=== PATIENT | male | born 1950 | race Two or more races ===

== ENCOUNTER 2021-01-12 22:37 | Inpatient (IN) | payer OTHER ==
[~2021-01-12] VITALS: Ht 170.2 cm; Wt 110.0 kg
[2021-01-12] MEDS ORDERED: ACETAMINOPHEN 325 MG TAB PO ONE (23:45)
[2021-01-13] VITALS (8 sets, daily range): BP systolic 122–165; BP diastolic 63–92
[2021-01-13] LABS: Eosinophils # (auto) 0 10 ^3/uL (0-0.8); Hemoglobin 11.7 g/dL (13.5-17.5); Nucleated Red Blood Cells % 0.1 %
[2021-01-13 00:02] LABS: Basophils # (auto) 0 10 ^3/uL (0-0.2); Basophils % (auto) 0.6 % (0.0-2.0); Hematocrit 35.2 % (41.0-53.0); Lymphocytes # (auto) 0.2 10 ^3/uL (0.4-5.4); Lymphocytes % (auto) 3.6 % (10.0-50.0); Mean Corpuscular Hemoglobin 26.2 pg (28.0-32.0); Mean Corpuscular Hgb Conc. 33.1 g/dL (32.0-36.0); Mean Corpuscular Volume 79.1 fL (80.0-100.0); Monocytes # (auto) 0.3 10 ^3/uL (0-1.3); Monocytes % (auto) 4.3 % (0.0-12.0); Neutrophils # (auto) 5.9 10 ^3/uL (1.6-8.6); Neutrophils % (auto) 91.5 % (37.0-80.0); Red Blood Cells 4.45 10^6/uL (4.5-5.90); White Blood Cell 6.4 10^3/uL (4.4-10.8)
[2021-01-13 00:14] LABS: INR 1.13 (0.9-1.15); Partial Thromboplastin Time 31.1 sec (23.0-31.2)
[2021-01-13] MEDS ORDERED: cefTRIAXone 1GM/50ML D5W 50 ML IV ONE (00:15)
[2021-01-13] MEDS ORDERED: SODIUM CHLORIDE 0.9% 2,200 ML IV ONE (00:15)
[2021-01-13 00:16] LABS: Albumin 2.9 g/dL (3.4-5.0); Calcium 8.4 mg/dL (8.5-10.1); Magnesium 1.9 mg/dL (1.6-2.6)
[2021-01-13 00:20] LABS: Bilirubin, Total 0.6 mg/dL (0.2-1.0); Total Protein 7.2 g/dL (6.4-8.2)
[2021-01-13] MEDS ORDERED: DexAMETHasone SOD PHOS 10MG/1ML VIAL INJ PO ONE (01:30)
[2021-01-13] MEDS ORDERED: IOHEXOL 350 MG/ML 100ML IJ ONE (03:14)
[2021-01-13 04:35] LABS: Urine Bacteria FEW /hpf (None Seen); Urine Blood Negative /uL (Negative); Urine Specific Gravity 1.021 (1.001-1.035); Urine WBC 2 /hpf (0 - 3)
[2021-01-13] MEDS ORDERED: ONDANSETRON HCL 4 MG/2 ML VIAL IV PRN (05:15)
[2021-01-13] MEDS ORDERED: MORPHINE SULF INJ 2 MG/ML SYRINGE 1ML IV PRN (05:15)
[2021-01-13] MEDS ORDERED: REMDESIVIR PER PHARMACY 0 ML IV SCH (05:15)
[2021-01-13] MEDS ORDERED: NITROGLYCERIN 0.4 MG SL TAB SL PRN (05:15)
[2021-01-13] MEDS: IPRATROPIUM BROMIDE HFA AER IN SCH ×4 (06:00→22:18)
[2021-01-13] MEDS ORDERED: REMDESIVIR 200 MG in NS 210ml LOADING DOSE ADULT IV ONE (08:45)
[2021-01-13] MEDS: BUDESONIDE (INHALATION) 180 MCG IH IN SCH ×2 (10:00→19:35)
[2021-01-13] MEDS ORDERED: CHOLECALCIFEROL (VITD3) 2,000 UNIT CAP/TAB PO SCH (10:00)
[2021-01-13] MEDS: AZITHROMYCIN 500MG/ 250ML 250 ML IV SCH (11:31)
[2021-01-13] MEDS: DexAMETHasone SOD PHOS 10MG/1ML VIAL INJ IV SCH (11:32)
[2021-01-13] MEDS: ASCORBIC ACID 1,000 MG TAB PO SCH (11:33)
[2021-01-13] MEDS: ZINC SULFATE 220mg CAP or TAB PO SCH (11:33)
[2021-01-13] MEDS: FAMOTIDINE 20 MG TAB PO SCH ×2 (11:33→20:12)
[2021-01-13] MEDS: ENALAPRIL MALEATE 10 MG TAB PO SCH (11:33)
[2021-01-13] MEDS: ENOXAPARIN SOD 40 MG/0.4 ML SYRINGE SC SCH ×2 (11:34→20:12)
[2021-01-13] MEDS: METOPROLOL TARTRATE 25 MG TAB PO SCH ×2 (11:34→20:12)
[2021-01-13] MEDS: ALBUTEROL SULF HFA 90MCG INH 200DOSE IN PRN (13:28)
[2021-01-13] MEDS ORDERED: LORazepam 2MG/ML-1ML VIAL IM ONE (13:45)
[2021-01-13] MEDS ORDERED: FUROSEMIDE 20 MG/2 ML VIAL IV ONE (19:15)
[2021-01-13] MEDS: cefTRIAXone 1GM/50ML D5W 50 ML IV SCH (20:12)
[2021-01-13] MEDS: ACETAMINOPHEN 500 MG TAB PO PRN (20:13)
[2021-01-13] MEDS: TEMAZEPAM 15 MG CAP PO PRN (20:13)
[2021-01-14] VITALS (13 sets, daily range): BP systolic 102–173; BP diastolic 60–96
[2021-01-14] MEDS: cloNIDine HCL 0.1 MG TAB PO PRN (05:27)
[2021-01-14 05:29] LABS: Basophils # (auto) 0 10 ^3/uL (0-0.2); Basophils % (auto) 0.3 % (0.0-2.0); Eosinophils # (auto) 0 10 ^3/uL (0-0.8); Hematocrit 36.2 % (41.0-53.0); Hemoglobin 12.1 g/dL (13.5-17.5); Lymphocytes # (auto) 0.6 10 ^3/uL (0.4-5.4); Lymphocytes % (auto) 6.2 % (10.0-50.0); Mean Corpuscular Hemoglobin 26.6 pg (28.0-32.0); Mean Corpuscular Hgb Conc. 33.4 g/dL (32.0-36.0); Mean Corpuscular Volume 79.4 fL (80.0-100.0); Monocytes # (auto) 0.4 10 ^3/uL (0-1.3); Monocytes % (auto) 4.2 % (0.0-12.0); Neutrophils # (auto) 8.1 10 ^3/uL (1.6-8.6); Neutrophils % (auto) 89.3 % (37.0-80.0); Red Blood Cells 4.56 10^6/uL (4.5-5.90); Red Cell Distribution Width 16.9 % (11.8-14.3); White Blood Cell 9.1 10^3/uL (4.4-10.8)
[2021-01-14 05:48] LABS: Albumin 2.5 g/dL (3.4-5.0); Calcium 8.9 mg/dL (8.5-10.1); Potassium 4.3 mmol/L (3.5-5.1)
[2021-01-14 05:54] LABS: BUN/Creatinine Ratio 33.8; Bilirubin, Total 0.4 mg/dL (0.2-1.0); Total Protein 6.9 g/dL (6.4-8.2)
[2021-01-14] MEDS: ALBUTEROL SULF HFA 90MCG INH 200DOSE IN PRN ×3 (06:55→22:39)
[2021-01-14] MEDS: IPRATROPIUM BROMIDE HFA AER IN SCH ×4 (06:55→22:39)
[2021-01-14] MEDS ORDERED: DEXTROSE (50%) 50ML SYRG IV PRN (08:30)
[2021-01-14] MEDS: FUROSEMIDE 20 MG/2 ML VIAL IV SCH (10:00)
[2021-01-14] MEDS: AZITHROMYCIN 500MG/ 250ML 250 ML IV SCH (10:00)
[2021-01-14] MEDS: DexAMETHasone SOD PHOS 10MG/1ML VIAL INJ IV SCH (10:00)
[2021-01-14] MEDS: ERGOCALCIFEROL 50,000 UNIT(1.25MG) CAP PO SCH (10:00)
[2021-01-14] MEDS: FAMOTIDINE 20 MG TAB PO SCH ×2 (10:01→23:30)
[2021-01-14] MEDS: METOPROLOL TARTRATE 25 MG TAB PO SCH ×2 (10:01→23:30)
[2021-01-14] MEDS: ENALAPRIL MALEATE 10 MG TAB PO SCH (10:01)
[2021-01-14] MEDS: ZINC SULFATE 220mg CAP or TAB PO SCH (10:01)
[2021-01-14] MEDS: ASCORBIC ACID 1,000 MG TAB PO SCH (10:01)
[2021-01-14] MEDS: BUDESONIDE (INHALATION) 180 MCG IH IN SCH ×2 (10:02→22:38)
[2021-01-14] MEDS: ENOXAPARIN SOD 40 MG/0.4 ML SYRINGE SC SCH ×2 (10:02→23:31)
[2021-01-14] MEDS: ACCU-CHEK COMFORT CURVE STRIP VI SCH ×3 (11:53→22:00)
[2021-01-14] MEDS: InsuLIN REG 1unit/0.01ml Soln (100units/ml) SC SCH ×3 (11:58→22:00)
[2021-01-14] MEDS: REMDESIVIR 100mg 100 MG in SODIUM CHL 0.9% 230 ML IV SCH (15:54)
[2021-01-14] MEDS ORDERED: LORazepam 2MG/ML-1ML VIAL IV ONE (16:15)
[2021-01-14] MEDS ORDERED: HALOPERIDOL LACTATE 5 MG/ML INJ VIAL ONE (18:39)
[2021-01-14] MEDS: cefTRIAXone 1GM/50ML D5W 50 ML IV SCH (23:30)
[2021-01-14] MEDS: TEMAZEPAM 15 MG CAP PO PRN (23:31)
[2021-01-15] VITALS (61 sets, daily range): BP systolic 62–173; BP diastolic 37–95
[2021-01-15] MEDS ORDERED: LORazepam 2MG/ML-1ML VIAL ONE ×2 (01:28→06:40)
[2021-01-15] MEDS ORDERED: LORazepam 2MG/ML-1ML VIAL IV ONE ×2 (01:30→06:45)
[2021-01-15] MEDS ORDERED: HALOPERIDOL LACTATE 5 MG/ML INJ VIAL ONE (03:09)
[2021-01-15] MEDS ORDERED: HALOPERIDOL LACTATE 5 MG/ML INJ VIAL IV ONE (03:15)
[2021-01-15 05:36] LABS: Albumin 2.4 g/dL (3.4-5.0); Calcium 8.5 mg/dL (8.5-10.1); Potassium 3.9 mmol/L (3.5-5.1)
[2021-01-15 05:41] LABS: BUN/Creatinine Ratio 42.4; Bilirubin, Total 0.4 mg/dL (0.2-1.0); Total Protein 6.7 g/dL (6.4-8.2)
[2021-01-15] MEDS: IPRATROPIUM BROMIDE HFA AER IN SCH (06:00)
[2021-01-15] MEDS: ACCU-CHEK COMFORT CURVE STRIP VI SCH ×3 (06:07→18:12)
[2021-01-15] MEDS: InsuLIN REG 1unit/0.01ml Soln (100units/ml) SC SCH ×3 (06:07→18:12)
[2021-01-15 07:50] LABS: Basophils # (auto) 0 10 ^3/uL (0-0.2); Eosinophils # (auto) 0 10 ^3/uL (0-0.8); Lymphocytes # (auto) 0.5 10 ^3/uL (0.4-5.4); Mean Corpuscular Hgb Conc. 34.1 g/dL (32.0-36.0); Monocytes # (auto) 0.5 10 ^3/uL (0-1.3)
[2021-01-15 07:54] LABS: Basophils % (auto) 0.3 % (0.0-2.0); Hematocrit 36.8 % (41.0-53.0); Hemoglobin 12.6 g/dL (13.5-17.5); Lymphocytes % (auto) 4.9 % (10.0-50.0); Mean Corpuscular Hemoglobin 26.7 pg (28.0-32.0); Mean Corpuscular Volume 78.3 fL (80.0-100.0); Monocytes % (auto) 5.1 % (0.0-12.0); Neutrophils # (auto) 8.6 10 ^3/uL (1.6-8.6); Neutrophils % (auto) 89.7 % (37.0-80.0); Nucleated Red Blood Cells % 0.1 %; Red Blood Cells 4.71 10^6/uL (4.5-5.90); Red Cell Distribution Width 17.1 % (11.8-14.3); White Blood Cell 9.6 10^3/uL (4.4-10.8)
[2021-01-15] MEDS: FAMOTIDINE 20 MG TAB PO SCH ×2 (10:00→21:51)
[2021-01-15] MEDS: ENALAPRIL MALEATE 10 MG TAB PO SCH (10:00)
[2021-01-15] MEDS ORDERED: ETOMIDATE (2MG/ML) 20ML VIAL IV ONE ×2 (10:00→10:48)
[2021-01-15] MEDS ORDERED: SUCCINYLCHOLINE CHLORIDE 20 MG/ML 10ML VIAL IV ONE ×2 (10:00→10:49)
[2021-01-15] MEDS ORDERED: ROCURONIUM 10MG/ML 10ML VIAL IV ONE (10:00)
[2021-01-15] MEDS: METOPROLOL TARTRATE 25 MG TAB PO SCH ×2 (10:00→21:50)
[2021-01-15] MEDS: ASCORBIC ACID 1,000 MG TAB PO SCH (10:00)
[2021-01-15] MEDS: ZINC SULFATE 220mg CAP or TAB PO SCH (10:00)
[2021-01-15] MEDS ORDERED: MIDAZOLAM HCL 5 MG/ML-1ML VIAL IV ONE (10:30)
[2021-01-15] MEDS: PROPOFOL 100 ML IV SCH ×2 (11:10→16:53)
[2021-01-15] MEDS: MIDAZOLAM DRIP 50 mg/50mL 50 ML IV SCH ×2 (11:20→15:07)
[2021-01-15] MEDS: fentaNYL Drip 2500mCg/250mlNS 250 ML IV SCH ×2 (11:30→21:47)
[2021-01-15] MEDS: NOREPINEPHRINE 8 MG/250ML KIT 250 ML IV SCH ×2 (11:30→19:05)
[2021-01-15] MEDS: PHENYLEPHRINE IV 250 ML IV SCH ×2 (11:45→18:20)
[2021-01-15] MEDS: IPRATROPIUM BROM 0.5 MG/2.5ML INH SOL NEB SCH ×2 (14:02→22:29)
[2021-01-15] MEDS: ALBUTEROL SULF 2.5 MG/0.5ML(0.5%) NEB SOLN NEB SCH ×2 (14:02→22:29)
[2021-01-15] MEDS: DexAMETHasone SOD PHOS 10MG/1ML VIAL INJ IV SCH (15:06)
[2021-01-15] MEDS: FUROSEMIDE 20 MG/2 ML VIAL IV SCH (15:07)
[2021-01-15] MEDS: AZITHROMYCIN 500MG/ 250ML 250 ML IV SCH (15:14)
[2021-01-15] MEDS: ENOXAPARIN SOD 40 MG/0.4 ML SYRINGE SC SCH (15:15)
[2021-01-15] MEDS: REMDESIVIR 100mg 100 MG in SODIUM CHL 0.9% 230 ML IV SCH (16:10)
[2021-01-15] MEDS: cefTRIAXone 1GM/50ML D5W 50 ML IV SCH (22:06)
[2021-01-15] MEDS: BUDESONIDE (INHALATION) 0.5 MG/2 ML NEB NEB SCH (22:29)
[2021-01-16] VITALS (106 sets, daily range): BP systolic 91–136; BP diastolic 42–64
[2021-01-16] MEDS: ENOXAPARIN SOD 40 MG/0.4 ML SYRINGE SC SCH ×3 (00:22→22:47)
[2021-01-16] MEDS: InsuLIN REG 1unit/0.01ml Soln (100units/ml) SC SCH ×5 (00:22→22:00)
[2021-01-16] MEDS: ACCU-CHEK COMFORT CURVE STRIP VI SCH ×5 (00:22→22:00)
[2021-01-16] MEDS: MIDAZOLAM DRIP 50 mg/50mL 50 ML IV SCH ×5 (00:24→22:48)
[2021-01-16] MEDS: PHENYLEPHRINE IV 250 ML IV SCH ×3 (02:40→19:20)
[2021-01-16 07:15] LABS: Albumin 2.1 g/dL (3.4-5.0); Calcium 8.4 mg/dL (8.5-10.1)
[2021-01-16 07:16] LABS: BUN/Creatinine Ratio 33.3
[2021-01-16 07:19] LABS: Bilirubin, Total 0.3 mg/dL (0.2-1.0); Total Protein 5.9 g/dL (6.4-8.2)
[2021-01-16] MEDS: BUDESONIDE (INHALATION) 0.5 MG/2 ML NEB NEB SCH ×2 (07:30→18:34)
[2021-01-16] MEDS: ALBUTEROL SULF 2.5 MG/0.5ML(0.5%) NEB SOLN NEB SCH ×3 (07:30→18:34)
[2021-01-16] MEDS: IPRATROPIUM BROM 0.5 MG/2.5ML INH SOL NEB SCH ×3 (07:30→18:34)
[2021-01-16] MEDS: PROPOFOL 100 ML IV SCH (10:00)
[2021-01-16] MEDS: ENALAPRIL MALEATE 10 MG TAB PO SCH (10:00)
[2021-01-16] MEDS: METOPROLOL TARTRATE 25 MG TAB PO SCH ×2 (10:00→22:00)
[2021-01-16] MEDS: AZITHROMYCIN 500MG/ 250ML 250 ML IV SCH (10:46)
[2021-01-16] MEDS: fentaNYL Drip 2500mCg/250mlNS 250 ML IV SCH (11:34)
[2021-01-16] MEDS: ZINC SULFATE 220mg CAP or TAB PO SCH (11:43)
[2021-01-16] MEDS: FUROSEMIDE 20 MG/2 ML VIAL IV SCH (11:43)
[2021-01-16] MEDS: ASCORBIC ACID 1,000 MG TAB PO SCH (11:44)
[2021-01-16] MEDS: FAMOTIDINE 20 MG TAB PO SCH ×2 (11:44→22:00)
[2021-01-16] MEDS: DexAMETHasone SOD PHOS 10MG/1ML VIAL INJ IV SCH (11:44)
[2021-01-16] MEDS ORDERED: Glucerna 1.2 Cal 1Liter BOTTLE GT SCH (14:00)
[2021-01-16] MEDS: REMDESIVIR 100mg 100 MG in SODIUM CHL 0.9% 230 ML IV SCH (14:45)
[2021-01-16] MEDS: cefTRIAXone 1GM/50ML D5W 50 ML IV SCH (22:45)
[2021-01-17] VITALS (100 sets, daily range): BP systolic 86–147; BP diastolic 42–70
[2021-01-17] MEDS: fentaNYL Drip 2500mCg/250mlNS 250 ML IV SCH (03:13)
[2021-01-17] MEDS: PHENYLEPHRINE IV 250 ML IV SCH ×3 (03:40→20:20)
[2021-01-17 05:24] LABS: Eosinophils # (auto) 0 10 ^3/uL (0-0.8); Lymphocytes # (auto) 0.5 10 ^3/uL (0.4-5.4); Mean Corpuscular Hemoglobin 26.4 pg (28.0-32.0); Mean Corpuscular Volume 78.5 fL (80.0-100.0); Monocytes # (auto) 0.4 10 ^3/uL (0-1.3); Nucleated Red Blood Cells % 0.1 %
[2021-01-17 05:25] LABS: Basophils # (auto) 0 10 ^3/uL (0-0.2); Basophils % (auto) 0.4 % (0.0-2.0); Eosinophils % (auto) 0.1 % (0.0-7.0); Hematocrit 33.6 % (41.0-53.0); Hemoglobin 11.3 g/dL (13.5-17.5); Lymphocytes % (auto) 5.3 % (10.0-50.0); Mean Corpuscular Hgb Conc. 33.6 g/dL (32.0-36.0); Monocytes % (auto) 3.7 % (0.0-12.0); Neutrophils % (auto) 90.5 % (37.0-80.0); Red Blood Cells 4.27 10^6/uL (4.5-5.90); White Blood Cell 9.9 10^3/uL (4.4-10.8)
[2021-01-17 05:39] LABS: Potassium 3.9 mmol/L (3.5-5.1)
[2021-01-17 05:50] LABS: Albumin 1.9 g/dL (3.4-5.0); BUN/Creatinine Ratio 39.5; Bilirubin, Total 0.2 mg/dL (0.2-1.0); CRP High Sensitivity 9.23 mg/dL (< 0.3); Calcium 8.2 mg/dL (8.5-10.1); Total Protein 5.5 g/dL (6.4-8.2)
[2021-01-17] MEDS: ACCU-CHEK COMFORT CURVE STRIP VI SCH ×4 (07:45→21:45)
[2021-01-17] MEDS: InsuLIN REG 1unit/0.01ml Soln (100units/ml) SC SCH ×4 (07:48→22:23)
[2021-01-17] MEDS: IPRATROPIUM BROM 0.5 MG/2.5ML INH SOL NEB SCH ×2 (07:59→22:23)
[2021-01-17] MEDS: ALBUTEROL SULF 2.5 MG/0.5ML(0.5%) NEB SOLN NEB SCH ×2 (07:59→22:23)
[2021-01-17] MEDS: BUDESONIDE (INHALATION) 0.5 MG/2 ML NEB NEB SCH ×2 (07:59→22:23)
[2021-01-17] MEDS: ENALAPRIL MALEATE 10 MG TAB PO SCH (09:27)
[2021-01-17] MEDS: METOPROLOL TARTRATE 25 MG TAB PO SCH ×2 (09:28→21:45)
[2021-01-17] MEDS: FAMOTIDINE 20 MG TAB PO SCH ×2 (09:29→21:45)
[2021-01-17] MEDS: FUROSEMIDE 20 MG/2 ML VIAL IV SCH (09:29)
[2021-01-17] MEDS: ZINC SULFATE 220mg CAP or TAB PO SCH (09:29)
[2021-01-17] MEDS: ENOXAPARIN SOD 40 MG/0.4 ML SYRINGE SC SCH ×2 (09:30→21:45)
[2021-01-17] MEDS: ASCORBIC ACID 1,000 MG TAB PO SCH (09:30)
[2021-01-17] MEDS: AZITHROMYCIN 500MG/ 250ML 250 ML IV SCH (09:30)
[2021-01-17] MEDS: DexAMETHasone SOD PHOS 10MG/1ML VIAL INJ IV SCH (09:30)
[2021-01-17] MEDS: NOREPINEPHRINE 8 MG/250ML KIT 250 ML IV SCH (10:00)
[2021-01-17] MEDS: PROPOFOL 100 ML IV SCH (10:00)
[2021-01-17] MEDS: REMDESIVIR 100mg 100 MG in SODIUM CHL 0.9% 230 ML IV SCH (15:00)
[2021-01-17] MEDS: cefTRIAXone 1GM/50ML D5W 50 ML IV SCH (21:44)
[2021-01-18] VITALS (108 sets, daily range): BP systolic 91–140; BP diastolic 47–84
[2021-01-18] MEDS: MIDAZOLAM DRIP 50 mg/50mL 50 ML IV SCH ×5 (00:30→21:08)
[2021-01-18] MEDS: fentaNYL Drip 2500mCg/250mlNS 250 ML IV SCH ×3 (04:35→23:36)
[2021-01-18] MEDS: PHENYLEPHRINE IV 250 ML IV SCH ×3 (04:40→21:16)
[2021-01-18 05:35] LABS: Basophils # (auto) 0 10 ^3/uL (0-0.2); Basophils % (auto) 0.1 % (0.0-2.0); Eosinophils # (auto) 0 10 ^3/uL (0-0.8); Hematocrit 32.2 % (41.0-53.0); Lymphocytes # (auto) 0.4 10 ^3/uL (0.4-5.4); Monocytes # (auto) 0.3 10 ^3/uL (0-1.3); Neutrophils # (auto) 8.3 10 ^3/uL (1.6-8.6)
[2021-01-18 05:39] LABS: Eosinophils % (auto) 0.4 % (0.0-7.0); Hemoglobin 10.7 g/dL (13.5-17.5); Mean Corpuscular Hemoglobin 26.3 pg (28.0-32.0); Mean Corpuscular Hgb Conc. 33.3 g/dL (32.0-36.0); Monocytes % (auto) 2.8 % (0.0-12.0); Neutrophils % (auto) 92.7 % (37.0-80.0); Nucleated Red Blood Cells % 0.1 %; Red Blood Cells 4.08 10^6/uL (4.5-5.90)
[2021-01-18 05:57] LABS: Potassium 3.7 mmol/L (3.5-5.1)
[2021-01-18] MEDS: ACCU-CHEK COMFORT CURVE STRIP VI SCH ×4 (06:00→23:56)
[2021-01-18] MEDS: ALBUTEROL SULF 2.5 MG/0.5ML(0.5%) NEB SOLN NEB SCH ×3 (06:00→18:26)
[2021-01-18 06:01] LABS: BUN/Creatinine Ratio 50.5; Calcium 7.9 mg/dL (8.5-10.1)
[2021-01-18] MEDS: InsuLIN REG 1unit/0.01ml Soln (100units/ml) SC SCH ×3 (06:02→17:00)
[2021-01-18] MEDS: IPRATROPIUM BROM 0.5 MG/2.5ML INH SOL NEB SCH ×3 (06:54→18:26)
[2021-01-18] MEDS: BUDESONIDE (INHALATION) 0.5 MG/2 ML NEB NEB SCH ×2 (06:55→18:26)
[2021-01-18] MEDS: PROPOFOL 100 ML IV SCH (10:00)
[2021-01-18] MEDS: NOREPINEPHRINE 8 MG/250ML KIT 250 ML IV SCH (10:00)
[2021-01-18] MEDS: ENALAPRIL MALEATE 10 MG TAB PO SCH (10:00)
[2021-01-18] MEDS: METOPROLOL TARTRATE 25 MG TAB PO SCH ×2 (10:00→21:15)
[2021-01-18] MEDS: ASCORBIC ACID 1,000 MG TAB PO SCH (10:06)
[2021-01-18] MEDS: FUROSEMIDE 20 MG/2 ML VIAL IV SCH (10:22)
[2021-01-18] MEDS: ENOXAPARIN SOD 40 MG/0.4 ML SYRINGE SC SCH ×2 (10:22→21:15)
[2021-01-18] MEDS: DexAMETHasone SOD PHOS 10MG/1ML VIAL INJ IV SCH (10:22)
[2021-01-18] MEDS: ZINC SULFATE 220mg CAP or TAB PO SCH (10:23)
[2021-01-18] MEDS: FAMOTIDINE 20 MG TAB PO SCH ×2 (10:23→21:15)
[2021-01-18] MEDS: cefTRIAXone 1GM/50ML D5W 50 ML IV SCH (21:12)
[2021-01-19] VITALS (106 sets, daily range): BP systolic 93–132; BP diastolic 50–66
[2021-01-19] MEDS: InsuLIN REG 1unit/0.01ml Soln (100units/ml) SC SCH ×4 (00:01→18:17)
[2021-01-19] MEDS: PHENYLEPHRINE IV 250 ML IV SCH ×3 (05:40→22:20)
[2021-01-19 06:05] LABS: Basophils # (auto) 0 10 ^3/uL (0-0.2); Basophils % (auto) 0.1 % (0.0-2.0); Eosinophils # (auto) 0 10 ^3/uL (0-0.8); Hematocrit 31.2 % (41.0-53.0); Hemoglobin 10.6 g/dL (13.5-17.5); Lymphocytes # (auto) 0.3 10 ^3/uL (0.4-5.4); Lymphocytes % (auto) 3.4 % (10.0-50.0); Mean Corpuscular Hgb Conc. 34.2 g/dL (32.0-36.0); Mean Corpuscular Volume 79.1 fL (80.0-100.0); Monocytes # (auto) 0.2 10 ^3/uL (0-1.3); Monocytes % (auto) 2.5 % (0.0-12.0); Neutrophils # (auto) 7.3 10 ^3/uL (1.6-8.6); Nucleated Red Blood Cells % 0.1 %; Red Blood Cells 3.94 10^6/uL (4.5-5.90); Red Cell Distribution Width 17.3 % (11.8-14.3); White Blood Cell 7.8 10^3/uL (4.4-10.8)
[2021-01-19 06:09] LABS: Albumin 1.8 g/dL (3.4-5.0); BUN/Creatinine Ratio 49.5; Potassium 4.2 mmol/L (3.5-5.1)
[2021-01-19 06:12] LABS: Bilirubin, Total 0.3 mg/dL (0.2-1.0); Total Protein 5.3 g/dL (6.4-8.2)
[2021-01-19] MEDS: ACCU-CHEK COMFORT CURVE STRIP VI SCH ×4 (06:22→23:57)
[2021-01-19] MEDS: ALBUTEROL SULF 2.5 MG/0.5ML(0.5%) NEB SOLN NEB SCH ×3 (07:13→18:58)
[2021-01-19] MEDS: BUDESONIDE (INHALATION) 0.5 MG/2 ML NEB NEB SCH ×2 (07:13→18:57)
[2021-01-19] MEDS: IPRATROPIUM BROM 0.5 MG/2.5ML INH SOL NEB SCH ×2 (07:13→14:22)
[2021-01-19] MEDS ORDERED: D5W 5% 1,000 ML IV ONE (08:45)
[2021-01-19] MEDS: PROPOFOL 100 ML IV SCH (10:00)
[2021-01-19] MEDS: METOPROLOL TARTRATE 25 MG TAB PO SCH ×2 (10:00→22:00)
[2021-01-19] MEDS: NOREPINEPHRINE 8 MG/250ML KIT 250 ML IV SCH (10:00)
[2021-01-19] MEDS: ENALAPRIL MALEATE 10 MG TAB PO SCH (10:00)
[2021-01-19] MEDS: MIDAZOLAM DRIP 50 mg/50mL 50 ML IV SCH ×2 (10:06→15:54)
[2021-01-19] MEDS: ENOXAPARIN SOD 40 MG/0.4 ML SYRINGE SC SCH ×2 (10:07→22:00)
[2021-01-19] MEDS: ASCORBIC ACID 1,000 MG TAB PO SCH (10:07)
[2021-01-19] MEDS: ZINC SULFATE 220mg CAP or TAB PO SCH (10:07)
[2021-01-19] MEDS: FAMOTIDINE 20 MG TAB PO SCH ×2 (10:07→22:00)
[2021-01-19] MEDS: DexAMETHasone SOD PHOS 10MG/1ML VIAL INJ IV SCH (10:07)
[2021-01-19] MEDS: FUROSEMIDE 20 MG/2 ML VIAL IV SCH (10:10)
[2021-01-19] MEDS: METOCLOPRAMIDE HCL 5MG/ml INJ 2ml VIAL IV SCH ×2 (14:06→22:00)
[2021-01-19] MEDS: fentaNYL Drip 2500mCg/250mlNS 250 ML IV SCH (17:39)
[2021-01-19] MEDS: cefTRIAXone 1GM/50ML D5W 50 ML IV SCH (21:00)
[2021-01-20] VITALS (107 sets, daily range): BP systolic 100–151; BP diastolic 49–76
[2021-01-20 05:24] LABS: Basophils # (auto) 0 10 ^3/uL (0-0.2); Eosinophils # (auto) 0 10 ^3/uL (0-0.8); Eosinophils % (auto) 0.1 % (0.0-7.0); Lymphocytes # (auto) 0.5 10 ^3/uL (0.4-5.4); Monocytes # (auto) 0.4 10 ^3/uL (0-1.3)
[2021-01-20 05:26] LABS: Basophils % (auto) 0.1 % (0.0-2.0); Hematocrit 33.1 % (41.0-53.0); Hemoglobin 10.8 g/dL (13.5-17.5); Lymphocytes % (auto) 5.2 % (10.0-50.0); Mean Corpuscular Hemoglobin 25.8 pg (28.0-32.0); Mean Corpuscular Hgb Conc. 32.5 g/dL (32.0-36.0); Mean Corpuscular Volume 79.2 fL (80.0-100.0); Monocytes % (auto) 4.4 % (0.0-12.0); Neutrophils # (auto) 8.3 10 ^3/uL (1.6-8.6); Neutrophils % (auto) 90.2 % (37.0-80.0); Nucleated Red Blood Cells % 0.1 %; Red Blood Cells 4.18 10^6/uL (4.5-5.90); Red Cell Distribution Width 17.5 % (11.8-14.3); White Blood Cell 9.2 10^3/uL (4.4-10.8)
[2021-01-20] MEDS: METOCLOPRAMIDE HCL 5MG/ml INJ 2ml VIAL IV SCH ×3 (05:47→21:47)
[2021-01-20 05:51] LABS: BUN/Creatinine Ratio 53.8; Calcium 8.2 mg/dL (8.5-10.1); Potassium 4.2 mmol/L (3.5-5.1)
[2021-01-20] MEDS: InsuLIN REG 1unit/0.01ml Soln (100units/ml) SC SCH ×4 (06:04→18:16)
[2021-01-20] MEDS: ACCU-CHEK COMFORT CURVE STRIP VI SCH ×3 (06:04→18:16)
[2021-01-20] MEDS: PHENYLEPHRINE IV 250 ML IV SCH ×3 (06:40→23:11)
[2021-01-20] MEDS: IPRATROPIUM BROM 0.5 MG/2.5ML INH SOL NEB SCH ×3 (09:13→22:12)
[2021-01-20] MEDS: BUDESONIDE (INHALATION) 0.5 MG/2 ML NEB NEB SCH ×2 (09:13→22:12)
[2021-01-20] MEDS: ALBUTEROL SULF 2.5 MG/0.5ML(0.5%) NEB SOLN NEB SCH ×3 (09:13→22:12)
[2021-01-20] MEDS: ENOXAPARIN SOD 40 MG/0.4 ML SYRINGE SC SCH ×2 (09:52→21:48)
[2021-01-20] MEDS: FAMOTIDINE 20 MG TAB PO SCH ×2 (09:52→21:48)
[2021-01-20] MEDS: DexAMETHasone SOD PHOS 10MG/1ML VIAL INJ IV SCH (09:52)
[2021-01-20] MEDS: ASCORBIC ACID 1,000 MG TAB PO SCH (09:52)
[2021-01-20] MEDS: FUROSEMIDE 20 MG/2 ML VIAL IV SCH (09:52)
[2021-01-20] MEDS: ZINC SULFATE 220mg CAP or TAB PO SCH (09:52)
[2021-01-20] MEDS: ENALAPRIL MALEATE 10 MG TAB PO SCH (09:53)
[2021-01-20] MEDS: METOPROLOL TARTRATE 25 MG TAB PO SCH ×2 (09:53→20:48)
[2021-01-20] MEDS: PROPOFOL 100 ML IV SCH (09:53)
[2021-01-20] MEDS: NOREPINEPHRINE 8 MG/250ML KIT 250 ML IV SCH (09:53)
[2021-01-20] MEDS: MIDAZOLAM DRIP 50 mg/50mL 50 ML IV SCH ×2 (10:45→18:24)
[2021-01-20] MEDS: fentaNYL Drip 2500mCg/250mlNS 250 ML IV SCH (13:11)
[2021-01-20] MEDS: cefTRIAXone 1GM/50ML D5W 50 ML IV SCH (21:47)
[2021-01-21] VITALS (103 sets, daily range): BP systolic 95–182; BP diastolic 45–93
[2021-01-21] MEDS: InsuLIN REG 1unit/0.01ml Soln (100units/ml) SC SCH ×4 (00:15→18:26)
[2021-01-21] MEDS: ACCU-CHEK COMFORT CURVE STRIP VI SCH ×4 (00:15→17:51)
[2021-01-21] MEDS: cloNIDine HCL 0.1 MG TAB PO PRN ×2 (01:43→22:02)
[2021-01-21] MEDS: METOCLOPRAMIDE HCL 5MG/ml INJ 2ml VIAL IV SCH ×3 (05:36→22:01)
[2021-01-21] MEDS: fentaNYL Drip 2500mCg/250mlNS 250 ML IV SCH (05:42)
[2021-01-21] MEDS: BUDESONIDE (INHALATION) 0.5 MG/2 ML NEB NEB SCH ×2 (06:42→22:19)
[2021-01-21] MEDS: IPRATROPIUM BROM 0.5 MG/2.5ML INH SOL NEB SCH ×3 (06:42→22:19)
[2021-01-21] MEDS: ALBUTEROL SULF 2.5 MG/0.5ML(0.5%) NEB SOLN NEB SCH ×3 (06:42→22:18)
[2021-01-21] MEDS: PHENYLEPHRINE IV 250 ML IV SCH ×2 (07:30→15:50)
[2021-01-21] MEDS: ERGOCALCIFEROL 50,000 UNIT(1.25MG) CAP PO SCH (08:00)
[2021-01-21] MEDS: DexAMETHasone SOD PHOS 10MG/1ML VIAL INJ IV SCH (08:57)
[2021-01-21] MEDS: ENOXAPARIN SOD 40 MG/0.4 ML SYRINGE SC SCH ×2 (08:59→22:02)
[2021-01-21] MEDS: ASCORBIC ACID 1,000 MG TAB PO SCH (08:59)
[2021-01-21] MEDS: FUROSEMIDE 20 MG/2 ML VIAL IV SCH (08:59)
[2021-01-21] MEDS: FAMOTIDINE 20 MG TAB PO SCH ×2 (09:00→22:02)
[2021-01-21] MEDS: ZINC SULFATE 220mg CAP or TAB PO SCH (09:00)
[2021-01-21] MEDS: ENALAPRIL MALEATE 10 MG TAB PO SCH (09:00)
[2021-01-21] MEDS: PROPOFOL 100 ML IV SCH (09:01)
[2021-01-21] MEDS: NOREPINEPHRINE 8 MG/250ML KIT 250 ML IV SCH (09:02)
[2021-01-21] MEDS: METOPROLOL TARTRATE 25 MG TAB PO SCH ×2 (12:34→22:02)
[2021-01-21] MEDS: cefTRIAXone 1GM/50ML D5W 50 ML IV SCH (20:48)
[2021-01-22] VITALS (105 sets, daily range): BP systolic 80–197; BP diastolic 42–102
[2021-01-22] MEDS: PHENYLEPHRINE IV 250 ML IV SCH ×3 (00:13→17:00)
[2021-01-22] MEDS: InsuLIN REG 1unit/0.01ml Soln (100units/ml) SC SCH ×4 (00:39→17:26)
[2021-01-22] MEDS: hydrALAZINE HCL 20 MG/ML VL IV PRN ×2 (01:02→06:24)
[2021-01-22 05:58] LABS: Basophils # (auto) 0 10 ^3/uL (0-0.2); Basophils % (auto) 0.1 % (0.0-2.0); Eosinophils # (auto) 0 10 ^3/uL (0-0.8); Eosinophils % (auto) 0.4 % (0.0-7.0); Hematocrit 38.7 % (41.0-53.0); Hemoglobin 12.8 g/dL (13.5-17.5); Lymphocytes # (auto) 0.5 10 ^3/uL (0.4-5.4); Lymphocytes % (auto) 5.1 % (10.0-50.0); Mean Corpuscular Hemoglobin 26.2 pg (28.0-32.0); Mean Corpuscular Hgb Conc. 33.1 g/dL (32.0-36.0); Mean Corpuscular Volume 79.2 fL (80.0-100.0); Monocytes # (auto) 0.5 10 ^3/uL (0-1.3); Monocytes % (auto) 5.1 % (0.0-12.0); Neutrophils % (auto) 89.3 % (37.0-80.0); Red Blood Cells 4.89 10^6/uL (4.5-5.90); White Blood Cell 10.1 10^3/uL (4.4-10.8)
[2021-01-22] MEDS: BUDESONIDE (INHALATION) 0.5 MG/2 ML NEB NEB SCH ×2 (05:58→23:34)
[2021-01-22] MEDS: ALBUTEROL SULF 2.5 MG/0.5ML(0.5%) NEB SOLN NEB SCH ×3 (05:58→12:43)
[2021-01-22 06:14] LABS: Potassium 3.7 mmol/L (3.5-5.1)
[2021-01-22 06:23] LABS: Albumin 2.1 g/dL (3.4-5.0); BUN/Creatinine Ratio 67.2; Bilirubin, Total 0.4 mg/dL (0.2-1.0); Calcium 8.5 mg/dL (8.5-10.1); Total Protein 5.9 g/dL (6.4-8.2)
[2021-01-22] MEDS: METOCLOPRAMIDE HCL 5MG/ml INJ 2ml VIAL IV SCH ×3 (06:23→22:00)
[2021-01-22] MEDS: ACCU-CHEK COMFORT CURVE STRIP VI SCH ×4 (06:23→18:25)
[2021-01-22] MEDS: NOREPINEPHRINE 8 MG/250ML KIT 250 ML IV SCH (10:00)
[2021-01-22] MEDS: fentaNYL Drip 2500mCg/250mlNS 250 ML IV SCH (10:00)
[2021-01-22] MEDS: MIDAZOLAM DRIP 50 mg/50mL 50 ML IV SCH (10:00)
[2021-01-22] MEDS: PROPOFOL 100 ML IV SCH (10:00)
[2021-01-22] MEDS: FAMOTIDINE 20 MG TAB PO SCH ×2 (10:00→22:00)
[2021-01-22] MEDS: ZINC SULFATE 220mg CAP or TAB PO SCH (10:23)
[2021-01-22] MEDS: ENOXAPARIN SOD 40 MG/0.4 ML SYRINGE SC SCH ×2 (10:23→22:00)
[2021-01-22] MEDS: ASCORBIC ACID 1,000 MG TAB PO SCH (10:24)
[2021-01-22] MEDS: DexAMETHasone SOD PHOS 10MG/1ML VIAL INJ IV SCH (10:24)
[2021-01-22] MEDS: FUROSEMIDE 20 MG/2 ML VIAL IV SCH (10:24)
[2021-01-22] MEDS: METOPROLOL TARTRATE 25 MG TAB PO SCH ×2 (10:30→22:00)
[2021-01-22] MEDS: IPRATROPIUM BROM 0.5 MG/2.5ML INH SOL NEB SCH ×3 (12:20→23:34)
[2021-01-22] MEDS: ENALAPRIL MALEATE 10 MG TAB PO SCH (14:57)
[2021-01-22] MEDS: cloNIDine HCL 0.1 MG TAB PO PRN (21:00)
[2021-01-22] MEDS: cefTRIAXone 1GM/50ML D5W 50 ML IV SCH (21:00)
[2021-01-22] MEDS ORDERED: LABETALOL HCL 5 MG/ML ML 20ML VIAL IV ONE (21:42)
[2021-01-22] MEDS: LABETALOL HCL 5 MG/ML 4ML SYRINGE IV PRN (21:50)
[2021-01-23] VITALS (108 sets, daily range): BP systolic 70–203; BP diastolic 38–102
[2021-01-23] MEDS: hydrALAZINE HCL 20 MG/ML VL IV PRN (00:03)
[2021-01-23] MEDS: ACCU-CHEK COMFORT CURVE STRIP VI SCH ×4 (00:13→18:09)
[2021-01-23] MEDS: InsuLIN REG 1unit/0.01ml Soln (100units/ml) SC SCH ×4 (00:17→18:30)
[2021-01-23] MEDS: PHENYLEPHRINE IV 250 ML IV SCH ×3 (01:13→18:00)
[2021-01-23] MEDS: LABETALOL HCL 5 MG/ML 4ML SYRINGE IV PRN (02:48)
[2021-01-23] MEDS: fentaNYL Drip 2500mCg/250mlNS 250 ML IV SCH (03:23)
[2021-01-23 04:34] LABS: Potassium 3.8 mmol/L (3.5-5.1)
[2021-01-23 04:36] LABS: Magnesium 2.3 mg/dL (1.6-2.6)
[2021-01-23] MEDS: METOCLOPRAMIDE HCL 5MG/ml INJ 2ml VIAL IV SCH ×3 (05:51→21:32)
[2021-01-23] MEDS: BUDESONIDE (INHALATION) 0.5 MG/2 ML NEB NEB SCH ×2 (06:10→22:48)
[2021-01-23] MEDS: IPRATROPIUM BROM 0.5 MG/2.5ML INH SOL NEB SCH ×3 (06:10→22:49)
[2021-01-23] MEDS: ALBUTEROL SULF 2.5 MG/0.5ML(0.5%) NEB SOLN NEB SCH ×3 (06:10→22:48)
[2021-01-23] MEDS: DexAMETHasone SOD PHOS 10MG/1ML VIAL INJ IV SCH (09:52)
[2021-01-23] MEDS: PROPOFOL 100 ML IV SCH ×2 (09:52→23:00)
[2021-01-23] MEDS: FUROSEMIDE 20 MG/2 ML VIAL IV SCH (09:53)
[2021-01-23] MEDS: NOREPINEPHRINE 8 MG/250ML KIT 250 ML IV SCH (09:53)
[2021-01-23] MEDS: MIDAZOLAM DRIP 50 mg/50mL 50 ML IV SCH (09:53)
[2021-01-23] MEDS: FAMOTIDINE 20 MG TAB PO SCH ×2 (10:19→21:32)
[2021-01-23] MEDS: ASCORBIC ACID 1,000 MG TAB PO SCH (10:19)
[2021-01-23] MEDS: ZINC SULFATE 220mg CAP or TAB PO SCH (10:19)
[2021-01-23] MEDS: ENOXAPARIN SOD 40 MG/0.4 ML SYRINGE SC SCH ×2 (10:19→21:32)
[2021-01-23] MEDS: METOPROLOL TARTRATE 25 MG TAB PO SCH ×2 (10:20→21:33)
[2021-01-23] MEDS: ENALAPRIL MALEATE 10 MG TAB PO SCH (10:20)
[2021-01-23] MEDS: cefTRIAXone 1GM/50ML D5W 50 ML IV SCH (20:21)
[2021-01-24] VITALS (70 sets, daily range): BP systolic 82–188; BP diastolic 48–112
[2021-01-24] MEDS: ACCU-CHEK COMFORT CURVE STRIP VI SCH ×5 (00:10→23:53)
[2021-01-24] MEDS: InsuLIN REG 1unit/0.01ml Soln (100units/ml) SC SCH ×5 (00:11→23:51)
[2021-01-24] MEDS: PHENYLEPHRINE IV 250 ML IV SCH ×3 (02:20→19:00)
[2021-01-24 04:46] LABS: Basophils # (auto) 0.1 10 ^3/uL (0-0.2); Basophils % (auto) 0.5 % (0.0-2.0); Eosinophils # (auto) 0.1 10 ^3/uL (0-0.8); Eosinophils % (auto) 0.6 % (0.0-7.0); Hemoglobin 11.6 g/dL (13.5-17.5); Lymphocytes # (auto) 0.6 10 ^3/uL (0.4-5.4); Lymphocytes % (auto) 5.5 % (10.0-50.0); Mean Corpuscular Hemoglobin 26.2 pg (28.0-32.0); Mean Corpuscular Hgb Conc. 33.1 g/dL (32.0-36.0); Mean Corpuscular Volume 79.3 fL (80.0-100.0); Monocytes # (auto) 0.5 10 ^3/uL (0-1.3); Monocytes % (auto) 5.2 % (0.0-12.0); Neutrophils # (auto) 9.2 10 ^3/uL (1.6-8.6); Neutrophils % (auto) 88.2 % (37.0-80.0); Red Blood Cells 4.42 10^6/uL (4.5-5.90); Red Cell Distribution Width 16.9 % (11.8-14.3); White Blood Cell 10.5 10^3/uL (4.4-10.8)
[2021-01-24] MEDS: METOCLOPRAMIDE HCL 5MG/ml INJ 2ml VIAL IV SCH ×3 (05:00→22:08)
[2021-01-24 05:06] LABS: BUN/Creatinine Ratio 57.6; Calcium 8.4 mg/dL (8.5-10.1); Potassium 3.4 mmol/L (3.5-5.1)
[2021-01-24] MEDS: IPRATROPIUM BROM 0.5 MG/2.5ML INH SOL NEB SCH ×3 (06:40→22:26)
[2021-01-24] MEDS: BUDESONIDE (INHALATION) 0.5 MG/2 ML NEB NEB SCH ×2 (06:41→22:26)
[2021-01-24] MEDS: ALBUTEROL SULF 2.5 MG/0.5ML(0.5%) NEB SOLN NEB SCH ×3 (06:41→22:27)
[2021-01-24] MEDS ORDERED: POTASSIUM CHLORIDE 40 MEQ, LIDOCAINE 1% (LOCAL ANESTH.) 4 ML in SODIUM CHL 0.9% 250 ML IV ONE (07:45)
[2021-01-24] MEDS: NOREPINEPHRINE 8 MG/250ML KIT 250 ML IV SCH (08:08)
[2021-01-24] MEDS: ZINC SULFATE 220mg CAP or TAB PO SCH (08:54)
[2021-01-24] MEDS: FAMOTIDINE 20 MG TAB PO SCH ×2 (08:55→22:00)
[2021-01-24] MEDS: METOPROLOL TARTRATE 25 MG TAB PO SCH ×2 (08:55→22:00)
[2021-01-24] MEDS: ENALAPRIL MALEATE 10 MG TAB PO SCH (08:55)
[2021-01-24] MEDS: ASCORBIC ACID 1,000 MG TAB PO SCH (08:55)
[2021-01-24] MEDS: MIDAZOLAM DRIP 50 mg/50mL 50 ML IV SCH (08:56)
[2021-01-24] MEDS: fentaNYL Drip 2500mCg/250mlNS 250 ML IV SCH (08:56)
[2021-01-24] MEDS: FUROSEMIDE 20 MG/2 ML VIAL IV SCH (09:14)
[2021-01-24] MEDS: DexAMETHasone SOD PHOS 10MG/1ML VIAL INJ IV SCH (09:14)
[2021-01-24] MEDS: ENOXAPARIN SOD 40 MG/0.4 ML SYRINGE SC SCH ×2 (09:15→22:08)
[2021-01-24] MEDS: MORPHINE SULF INJ 2 MG/ML SYRINGE 1ML IV PRN ×4 (13:54→23:58)
[2021-01-24] MEDS: LABETALOL HCL 5 MG/ML 4ML SYRINGE IV PRN ×2 (17:35→23:57)
[2021-01-24] MEDS: hydrALAZINE HCL 20 MG/ML VL IV PRN (18:51)
[2021-01-24] MEDS: cefTRIAXone 1GM/50ML D5W 50 ML IV SCH (21:10)
[2021-01-25] VITALS (39 sets, daily range): BP systolic 116–176; BP diastolic 56–84
[2021-01-25] MEDS ORDERED: ACETAMINOPHEN 120 MG RECT SUPP PR ONE (01:30)
[2021-01-25] MEDS ORDERED: ACETAMINOPHEN 650 MG RECT SUPP PR ONE ×2 (01:36→01:45)
[2021-01-25] MEDS: MORPHINE SULF INJ 2 MG/ML SYRINGE 1ML IV PRN ×3 (03:09→10:55)
[2021-01-25] MEDS: PHENYLEPHRINE IV 250 ML IV SCH ×3 (03:20→20:00)
[2021-01-25 05:36] LABS: Basophils # (auto) 0 10 ^3/uL (0-0.2); Basophils % (auto) 0.1 % (0.0-2.0); Eosinophils # (auto) 0 10 ^3/uL (0-0.8); Hematocrit 41.3 % (41.0-53.0); Hemoglobin 13.2 g/dL (13.5-17.5); Lymphocytes # (auto) 0.6 10 ^3/uL (0.4-5.4); Lymphocytes % (auto) 3.9 % (10.0-50.0); Mean Corpuscular Hemoglobin 26.5 pg (28.0-32.0); Mean Corpuscular Volume 82.8 fL (80.0-100.0); Monocytes % (auto) 6.4 % (0.0-12.0); Neutrophils # (auto) 13.3 10 ^3/uL (1.6-8.6); Neutrophils % (auto) 89.6 % (37.0-80.0); Red Blood Cells 4.99 10^6/uL (4.5-5.90); Red Cell Distribution Width 17.7 % (11.8-14.3); White Blood Cell 14.9 10^3/uL (4.4-10.8)
[2021-01-25 05:46] LABS: Potassium 4.1 mmol/L (3.5-5.1)
[2021-01-25] MEDS: InsuLIN REG 1unit/0.01ml Soln (100units/ml) SC SCH ×4 (05:47→23:52)
[2021-01-25 05:52] LABS: BUN/Creatinine Ratio 45.3; Calcium 8.8 mg/dL (8.5-10.1)
[2021-01-25] MEDS: METOCLOPRAMIDE HCL 5MG/ml INJ 2ml VIAL IV SCH ×3 (06:00→22:27)
[2021-01-25] MEDS: ACCU-CHEK COMFORT CURVE STRIP VI SCH ×4 (06:00→23:51)
[2021-01-25] MEDS: ALBUTEROL SULF HFA 90MCG INH 200DOSE IN SCH ×3 (06:20→22:00)
[2021-01-25] MEDS: fentaNYL Drip 2500mCg/250mlNS 250 ML IV SCH (08:41)
[2021-01-25] MEDS: PROPOFOL 100 ML IV SCH (08:42)
[2021-01-25] MEDS: NOREPINEPHRINE 8 MG/250ML KIT 250 ML IV SCH (08:42)
[2021-01-25] MEDS: MIDAZOLAM DRIP 50 mg/50mL 50 ML IV SCH (08:42)
[2021-01-25] MEDS: DexAMETHasone SOD PHOS 10MG/1ML VIAL INJ IV SCH (09:22)
[2021-01-25] MEDS: METOPROLOL TARTRATE 25 MG TAB PO SCH ×2 (09:23→22:28)
[2021-01-25] MEDS: FAMOTIDINE 20 MG TAB PO SCH ×2 (09:23→22:28)
[2021-01-25] MEDS: ENALAPRIL MALEATE 10 MG TAB PO SCH (09:23)
[2021-01-25] MEDS: ZINC SULFATE 220mg CAP or TAB PO SCH (09:23)
[2021-01-25] MEDS: FUROSEMIDE 20 MG/2 ML VIAL IV SCH (09:23)
[2021-01-25] MEDS: ENOXAPARIN SOD 40 MG/0.4 ML SYRINGE SC SCH ×2 (09:24→22:28)
[2021-01-25] MEDS: ASCORBIC ACID 1,000 MG TAB PO SCH (09:24)
[2021-01-25] MEDS ORDERED: BUDESONIDE 360 MCG IN SCH ×2 (10:00→22:00)
[2021-01-25] MEDS: hydrALAZINE HCL 20 MG/ML VL IV PRN (10:17)
[2021-01-25] MEDS: LABETALOL HCL 5 MG/ML 4ML SYRINGE IV PRN (18:27)
[2021-01-25] MEDS: cefTRIAXone 1GM/50ML D5W 50 ML IV SCH (21:18)
[2021-01-25] MEDS: ACETAMINOPHEN 500 MG TAB PO PRN (22:30)
[2021-01-26] VITALS (49 sets, daily range): BP systolic 66–193; BP diastolic 33–88
[2021-01-26] MEDS: hydrALAZINE HCL 20 MG/ML VL IV PRN (00:15)
[2021-01-26] MEDS: MORPHINE SULF INJ 2 MG/ML SYRINGE 1ML IV PRN (02:43)
[2021-01-26] MEDS ORDERED: LORazepam 2MG/ML-1ML VIAL IV ONE (03:00)
[2021-01-26] MEDS: PHENYLEPHRINE IV 250 ML IV SCH ×4 (04:20→21:00)
[2021-01-26] MEDS: InsuLIN REG 1unit/0.01ml Soln (100units/ml) SC SCH ×3 (06:00→17:52)
[2021-01-26] MEDS: ALBUTEROL SULF HFA 90MCG INH 200DOSE IN SCH (06:00)
[2021-01-26] MEDS: ACCU-CHEK COMFORT CURVE STRIP VI SCH ×3 (06:00→17:52)
[2021-01-26] MEDS: METOCLOPRAMIDE HCL 5MG/ml INJ 2ml VIAL IV SCH ×3 (06:47→19:52)
[2021-01-26] MEDS: NOREPINEPHRINE 8 MG/250ML KIT 250 ML IV SCH ×2 (07:32→16:00)
[2021-01-26] MEDS: fentaNYL Drip 2500mCg/250mlNS 250 ML IV SCH (07:32)
[2021-01-26] MEDS: PROPOFOL 100 ML IV SCH (07:32)
[2021-01-26] MEDS: MIDAZOLAM DRIP 50 mg/50mL 50 ML IV SCH (07:33)
[2021-01-26] MEDS: ZINC SULFATE 220mg CAP or TAB PO SCH (08:49)
[2021-01-26] MEDS: FAMOTIDINE 20 MG TAB PO SCH ×2 (08:50→19:52)
[2021-01-26] MEDS: ASCORBIC ACID 1,000 MG TAB PO SCH (08:50)
[2021-01-26] MEDS: ENALAPRIL MALEATE 10 MG TAB PO SCH (08:50)
[2021-01-26] MEDS: METOPROLOL TARTRATE 25 MG TAB PO SCH ×2 (08:50→22:00)
[2021-01-26] MEDS: ENOXAPARIN SOD 40 MG/0.4 ML SYRINGE SC SCH ×2 (09:44→19:53)
[2021-01-26] MEDS: DexAMETHasone SOD PHOS 10MG/1ML VIAL INJ IV SCH (09:44)
[2021-01-26] MEDS: FUROSEMIDE 20 MG/2 ML VIAL IV SCH (09:44)
[2021-01-26] MEDS: LABETALOL HCL 5 MG/ML 4ML SYRINGE IV PRN (09:46)
[2021-01-26] MEDS ORDERED: PPN PER PHARMACY 0 ML IV SCH (17:15)
[2021-01-26] MEDS ORDERED: AMINO ACID INFUSION IN D10W 1,000 ML IV NR (20:00)
[2021-01-26] MEDS: ALBUTEROL SULF 2.5 MG/0.5ML(0.5%) NEB SOLN NEB SCH (22:11)
[2021-01-26] MEDS: IPRATROPIUM BROM 0.5 MG/2.5ML INH SOL NEB SCH (22:11)
[2021-01-26] MEDS: BUDESONIDE (INHALATION) 0.5 MG/2 ML NEB NEB SCH (22:11)
[2021-01-27] VITALS (100 sets, daily range): BP systolic 82–140; BP diastolic 31–93
[2021-01-27] MEDS ORDERED: DEXTROSE (50%) 50ML SYRG IV SCH
[2021-01-27] MEDS: MORPHINE SULF INJ 2 MG/ML SYRINGE 1ML IV PRN (00:30)
[2021-01-27] MEDS: InsuLIN REG 1unit/0.01ml Soln (100units/ml) SC SCH ×4 (00:36→17:28)
[2021-01-27] MEDS: ACCU-CHEK COMFORT CURVE STRIP VI SCH ×4 (00:40→17:28)
[2021-01-27] MEDS: NOREPINEPHRINE 8 MG/250ML KIT 250 ML IV SCH ×2 (01:15→10:44)
[2021-01-27] MEDS: PHENYLEPHRINE IV 250 ML IV SCH ×3 (05:20→22:00)
[2021-01-27 05:57] LABS: Potassium 3.7 mmol/L (3.5-5.1)
[2021-01-27 06:06] LABS: BUN/Creatinine Ratio 47.2; Bilirubin, Total 0.5 mg/dL (0.2-1.0); Calcium 9.1 mg/dL (8.5-10.1); Magnesium 2.6 mg/dL (1.6-2.6); Phosphorus 3.7 mg/dL (2.5-4.90); Pre Albumin 11.7 mg/dL (20.0-40.0); Total Protein 6.6 g/dL (6.4-8.2)
[2021-01-27] MEDS: METOCLOPRAMIDE HCL 5MG/ml INJ 2ml VIAL IV SCH ×3 (06:22→20:20)
[2021-01-27] MEDS: BUDESONIDE (INHALATION) 0.5 MG/2 ML NEB NEB SCH ×3 (06:54→22:58)
[2021-01-27] MEDS: ALBUTEROL SULF 2.5 MG/0.5ML(0.5%) NEB SOLN NEB SCH ×2 (06:54→22:58)
[2021-01-27] MEDS: IPRATROPIUM BROM 0.5 MG/2.5ML INH SOL NEB SCH ×2 (06:54→22:58)
[2021-01-27 08:40] LABS: INR 1.14 (0.9-1.15); Partial Thromboplastin Time 28.8 sec (23.0-31.2)
[2021-01-27] MEDS: fentaNYL Drip 2500mCg/250mlNS 250 ML IV SCH (09:13)
[2021-01-27] MEDS: DexAMETHasone SOD PHOS 10MG/1ML VIAL INJ IV SCH (09:14)
[2021-01-27] MEDS: ZINC SULFATE 220mg CAP or TAB PO SCH (09:14)
[2021-01-27] MEDS: MIDAZOLAM DRIP 50 mg/50mL 50 ML IV SCH (09:14)
[2021-01-27] MEDS: PROPOFOL 100 ML IV SCH (09:14)
[2021-01-27] MEDS: METOPROLOL TARTRATE 25 MG TAB PO SCH ×2 (09:15→22:00)
[2021-01-27] MEDS: ASCORBIC ACID 1,000 MG TAB PO SCH (09:15)
[2021-01-27] MEDS: ENOXAPARIN SOD 40 MG/0.4 ML SYRINGE SC SCH ×2 (09:15→20:40)
[2021-01-27] MEDS: ENALAPRIL MALEATE 10 MG TAB PO SCH (09:15)
[2021-01-27] MEDS: FAMOTIDINE 20 MG TAB PO SCH ×2 (09:15→22:00)
[2021-01-27] MEDS ORDERED: FUROSEMIDE 40 MG/4 ML VIAL IV SCH (10:00)
[2021-01-27] MEDS ORDERED: SODIUM CHLORIDE 0.9% 1,000 ML IV ONE (12:45)
[2021-01-27] MEDS ORDERED: SODIUM CHLORIDE 0.9% 1,000 ML IV SCH (12:45)
[2021-01-27] MEDS ORDERED: PPN PER PHARMACY IV NR ×8 (20:00)
[2021-01-27] MEDS: SODIUM CHLOR 0.9% PF (SALINE LOCK) 10ML VIAL/SYR IV SCH (20:21)
[2021-01-28] VITALS (53 sets, daily range): BP systolic 94–161; BP diastolic 50–124
[2021-01-28] MEDS: ACCU-CHEK COMFORT CURVE STRIP VI SCH ×5 (00:30→23:32)
[2021-01-28] MEDS: InsuLIN REG 1unit/0.01ml Soln (100units/ml) SC SCH ×5 (00:31→23:35)
[2021-01-28] MEDS: METOCLOPRAMIDE HCL 5MG/ml INJ 2ml VIAL IV SCH ×3 (05:46→22:08)
[2021-01-28 05:53] LABS: Potassium 3.7 mmol/L (3.5-5.1)
[2021-01-28 05:58] LABS: Albumin 1.7 g/dL (3.4-5.0); BUN/Creatinine Ratio 55.6; Bilirubin, Total 0.3 mg/dL (0.2-1.0); Calcium 8.4 mg/dL (8.5-10.1); Magnesium 2.3 mg/dL (1.6-2.6); Total Protein 5.5 g/dL (6.4-8.2)
[2021-01-28] MEDS: PHENYLEPHRINE IV 250 ML IV SCH ×3 (06:20→23:00)
[2021-01-28] MEDS: ALBUTEROL SULF 2.5 MG/0.5ML(0.5%) NEB SOLN NEB SCH ×3 (07:01→22:20)
[2021-01-28] MEDS: IPRATROPIUM BROM 0.5 MG/2.5ML INH SOL NEB SCH ×3 (07:02→22:20)
[2021-01-28] MEDS: MORPHINE SULF INJ 2 MG/ML SYRINGE 1ML IV PRN (07:24)
[2021-01-28] MEDS: ERGOCALCIFEROL 50,000 UNIT(1.25MG) CAP PO SCH (07:24)
[2021-01-28] MEDS ORDERED: ALBUMIN 25% 100 ML IV ONE (08:15)
[2021-01-28] MEDS ORDERED: POTASSIUM PHOSPHATE 26.4 MEQ in SODIUM CHL 0.9% 100 ML IV ONE (08:15)
[2021-01-28] MEDS: D5W/SOD CHLO 0.9% 1,000 ML IV SCH (08:32)
[2021-01-28] MEDS: MIDAZOLAM DRIP 50 mg/50mL 50 ML IV SCH (10:00)
[2021-01-28] MEDS: ENALAPRIL MALEATE 10 MG TAB PO SCH (10:00)
[2021-01-28] MEDS: METOPROLOL TARTRATE 25 MG TAB PO SCH ×2 (10:00→22:08)
[2021-01-28] MEDS: PROPOFOL 100 ML IV SCH (10:00)
[2021-01-28] MEDS: fentaNYL Drip 2500mCg/250mlNS 250 ML IV SCH (10:00)
[2021-01-28] MEDS: SODIUM CHLOR 0.9% PF (SALINE LOCK) 10ML VIAL/SYR IV SCH ×2 (10:36→22:08)
[2021-01-28] MEDS: DexAMETHasone SOD PHOS 10MG/1ML VIAL INJ IV SCH (10:36)
[2021-01-28] MEDS: ASCORBIC ACID 1,000 MG TAB PO SCH (10:37)
[2021-01-28] MEDS: FAMOTIDINE 20 MG TAB PO SCH ×2 (10:37→22:09)
[2021-01-28] MEDS: ENOXAPARIN SOD 40 MG/0.4 ML SYRINGE SC SCH ×2 (10:37→22:09)
[2021-01-28] MEDS: ZINC SULFATE 220mg CAP or TAB PO SCH (10:37)
[2021-01-28] MEDS ORDERED: TPN PER PHARMACY 500 ML IV SCH (10:45)
[2021-01-28] MEDS: BUDESONIDE (INHALATION) 0.5 MG/2 ML NEB NEB SCH ×2 (10:47→22:20)
[2021-01-28] MEDS ORDERED: TPN PER PHARMACY IV NR ×8 (20:00)
[2021-01-29] VITALS (31 sets, daily range): BP systolic 102–161; BP diastolic 24–91
[2021-01-29] MEDS: MORPHINE SULF INJ 2 MG/ML SYRINGE 1ML IV PRN ×6 (00:16→22:51)
[2021-01-29] MEDS: BUDESONIDE (INHALATION) 0.5 MG/2 ML NEB NEB SCH ×2 (06:00→22:17)
[2021-01-29] MEDS: ACCU-CHEK COMFORT CURVE STRIP VI SCH ×4 (06:00→23:18)
[2021-01-29] MEDS: InsuLIN REG 1unit/0.01ml Soln (100units/ml) SC SCH ×4 (06:00→23:19)
[2021-01-29] MEDS: D5W/SOD CHLO 0.9% 1,000 ML IV SCH (06:30)
[2021-01-29] MEDS: METOCLOPRAMIDE HCL 5MG/ml INJ 2ml VIAL IV SCH ×3 (06:30→22:00)
[2021-01-29 06:37] LABS: Eosinophils # (auto) 0.2 10 ^3/uL (0-0.8); Hemoglobin 11.5 g/dL (13.5-17.5); Lymphocytes # (auto) 0.4 10 ^3/uL (0.4-5.4); Mean Corpuscular Volume 80.4 fL (80.0-100.0); Monocytes # (auto) 0.2 10 ^3/uL (0-1.3); Neutrophils # (auto) 6.8 10 ^3/uL (1.6-8.6)
[2021-01-29 06:41] LABS: Basophils # (auto) 0.1 10 ^3/uL (0-0.2); Basophils % (auto) 0.7 % (0.0-2.0); Eosinophils % (auto) 2.6 % (0.0-7.0); Lymphocytes % (auto) 5.7 % (10.0-50.0); Mean Corpuscular Hemoglobin 26.4 pg (28.0-32.0); Mean Corpuscular Hgb Conc. 32.8 g/dL (32.0-36.0); Monocytes % (auto) 2.4 % (0.0-12.0); Neutrophils % (auto) 88.6 % (37.0-80.0); Nucleated Red Blood Cells % 0.1 %; Red Blood Cells 4.35 10^6/uL (4.5-5.90); Red Cell Distribution Width 17.5 % (11.8-14.3); White Blood Cell 7.7 10^3/uL (4.4-10.8)
[2021-01-29 06:57] LABS: Potassium 4.6 mmol/L (3.5-5.1)
[2021-01-29 07:08] LABS: Albumin 2.3 g/dL (3.4-5.0); Bilirubin, Total 0.5 mg/dL (0.2-1.0); Calcium 8.3 mg/dL (8.5-10.1); Magnesium 2.2 mg/dL (1.6-2.6); Phosphorus 2.5 mg/dL (2.5-4.90); Total Protein 5.6 g/dL (6.4-8.2)
[2021-01-29] MEDS: PHENYLEPHRINE IV 250 ML IV SCH ×2 (07:20→15:40)
[2021-01-29] MEDS: PROPOFOL 100 ML IV SCH (10:00)
[2021-01-29] MEDS: MIDAZOLAM DRIP 50 mg/50mL 50 ML IV SCH (10:00)
[2021-01-29] MEDS: fentaNYL Drip 2500mCg/250mlNS 250 ML IV SCH (10:00)
[2021-01-29] MEDS: NOREPINEPHRINE 8 MG/250ML KIT 250 ML IV SCH (10:00)
[2021-01-29] MEDS: ASCORBIC ACID 1,000 MG TAB PO SCH (10:29)
[2021-01-29] MEDS: ENOXAPARIN SOD 40 MG/0.4 ML SYRINGE SC SCH ×2 (10:29→22:21)
[2021-01-29] MEDS: FAMOTIDINE 20 MG TAB PO SCH ×2 (10:29→22:20)
[2021-01-29] MEDS: ENALAPRIL MALEATE 10 MG TAB PO SCH (10:29)
[2021-01-29] MEDS: ZINC SULFATE 220mg CAP or TAB PO SCH (10:30)
[2021-01-29] MEDS: METOPROLOL TARTRATE 25 MG TAB PO SCH ×2 (10:32→22:20)
[2021-01-29] MEDS: SODIUM CHLOR 0.9% PF (SALINE LOCK) 10ML VIAL/SYR IV SCH ×2 (10:32→22:20)
[2021-01-29] MEDS: DexAMETHasone SOD PHOS 10MG/1ML VIAL INJ IV SCH (10:33)
[2021-01-29] MEDS: ALBUTEROL SULF 2.5 MG/0.5ML(0.5%) NEB SOLN NEB SCH ×3 (15:34→22:17)
[2021-01-29] MEDS: IPRATROPIUM BROM 0.5 MG/2.5ML INH SOL NEB SCH ×3 (15:35→22:17)
[2021-01-29] MEDS ORDERED: TPN PER PHARMACY IV NR ×9 (20:00)
[2021-01-30] VITALS (66 sets, daily range): BP systolic 53–186; BP diastolic 28–117
[2021-01-30] MEDS: MORPHINE SULF INJ 2 MG/ML SYRINGE 1ML IV PRN ×2 (04:28→08:00)
[2021-01-30] MEDS: ACCU-CHEK COMFORT CURVE STRIP VI SCH ×3 (06:00→18:29)
[2021-01-30] MEDS: METOCLOPRAMIDE HCL 5MG/ml INJ 2ml VIAL IV SCH ×3 (06:00→22:29)
[2021-01-30 06:38] LABS: Basophils # (auto) 0.1 10 ^3/uL (0-0.2); Eosinophils # (auto) 0.1 10 ^3/uL (0-0.8); Lymphocytes # (auto) 0.4 10 ^3/uL (0.4-5.4); Monocytes # (auto) 0.3 10 ^3/uL (0-1.3); White Blood Cell 9.9 10^3/uL (4.4-10.8)
[2021-01-30 06:41] LABS: Basophils % (auto) 0.9 % (0.0-2.0); Eosinophils % (auto) 1.3 % (0.0-7.0); Hemoglobin 12.4 g/dL (13.5-17.5); Mean Corpuscular Hgb Conc. 32.6 g/dL (32.0-36.0); Mean Corpuscular Volume 79.9 fL (80.0-100.0); Monocytes % (auto) 2.5 % (0.0-12.0); Neutrophils # (auto) 9.1 10 ^3/uL (1.6-8.6); Neutrophils % (auto) 91.3 % (37.0-80.0); Nucleated Red Blood Cells % 0.1 %; Red Blood Cells 4.76 10^6/uL (4.5-5.90); Red Cell Distribution Width 17.3 % (11.8-14.3)
[2021-01-30] MEDS: InsuLIN REG 1unit/0.01ml Soln (100units/ml) SC SCH ×3 (06:44→18:28)
[2021-01-30 06:49] LABS: Albumin 1.9 g/dL (3.4-5.0); Calcium 8.2 mg/dL (8.5-10.1); Magnesium 2.1 mg/dL (1.6-2.6); Potassium 3.5 mmol/L (3.5-5.1)
[2021-01-30 06:56] LABS: BUN/Creatinine Ratio 48.3; Bilirubin, Total 0.5 mg/dL (0.2-1.0); Phosphorus 2.6 mg/dL (2.5-4.90); Total Protein 5.6 g/dL (6.4-8.2)
[2021-01-30] MEDS: IPRATROPIUM BROM 0.5 MG/2.5ML INH SOL NEB SCH ×3 (07:11→18:26)
[2021-01-30] MEDS: BUDESONIDE (INHALATION) 0.5 MG/2 ML NEB NEB SCH ×2 (07:11→18:26)
[2021-01-30] MEDS: ALBUTEROL SULF 2.5 MG/0.5ML(0.5%) NEB SOLN NEB SCH ×3 (07:11→18:26)
[2021-01-30 07:14] LABS: INR 1.18 (0.9-1.15); Partial Thromboplastin Time 30.2 sec (23.0-31.2)
[2021-01-30] MEDS ORDERED: SUCCINYLCHOLINE CHLORIDE 20 MG/ML 10ML VIAL IV ONE (09:17)
[2021-01-30] MEDS ORDERED: ETOMIDATE (2MG/ML) 20ML VIAL IV ONE ×2 (09:17→10:40)
[2021-01-30] MEDS: MIDAZOLAM DRIP 50 mg/50mL 50 ML IV SCH (10:00)
[2021-01-30] MEDS: METOPROLOL TARTRATE 25 MG TAB PO SCH ×2 (10:00→22:00)
[2021-01-30] MEDS: ENALAPRIL MALEATE 10 MG TAB PO SCH (10:00)
[2021-01-30] MEDS: NOREPINEPHRINE 8 MG/250ML KIT 250 ML IV SCH (10:00)
[2021-01-30] MEDS: FAMOTIDINE 20 MG TAB PO SCH ×2 (10:00→22:12)
[2021-01-30] MEDS ORDERED: ROCURONIUM 10MG/ML 10ML VIAL IV ONE ×2 (10:40→10:48)
[2021-01-30] MEDS ORDERED: POTASSIUM PHOSPHATE IV ONE (11:30)
[2021-01-30] MEDS ORDERED: SODIUM CHL 0.9% IV ONE (11:30)
[2021-01-30] MEDS: PROPOFOL 100 ML IV SCH ×3 (12:41→22:13)
[2021-01-30] MEDS: fentaNYL Drip 2500mCg/250mlNS 250 ML IV SCH (12:42)
[2021-01-30] MEDS: ENOXAPARIN SOD 40 MG/0.4 ML SYRINGE SC SCH ×2 (13:04→22:12)
[2021-01-30] MEDS: SODIUM CHLOR 0.9% PF (SALINE LOCK) 10ML VIAL/SYR IV SCH ×2 (13:05→22:12)
[2021-01-30] MEDS: DexAMETHasone SOD PHOS 10MG/1ML VIAL INJ IV SCH (13:05)
[2021-01-30] MEDS: PHENYLEPHRINE IV 250 ML IV SCH ×4 (14:14→22:14)
[2021-01-30] MEDS: ZINC SULFATE 220mg CAP or TAB PO SCH (17:50)
[2021-01-30] MEDS: ASCORBIC ACID 1,000 MG TAB PO SCH (17:50)
[2021-01-30] MEDS ORDERED: TPN PER PHARMACY IV NR ×9 (20:00)
[2021-01-31] VITALS (103 sets, daily range): BP systolic 74–122; BP diastolic 41–63
[2021-01-31] MEDS: ACCU-CHEK COMFORT CURVE STRIP VI SCH ×4 (00:23→18:00)
[2021-01-31] MEDS: InsuLIN REG 1unit/0.01ml Soln (100units/ml) SC SCH ×4 (00:23→18:53)
[2021-01-31 05:44] LABS: Basophils # (auto) 0 10 ^3/uL (0-0.2); Basophils % (auto) 0.2 % (0.0-2.0); Eosinophils # (auto) 0 10 ^3/uL (0-0.8); Eosinophils % (auto) 0.4 % (0.0-7.0); Hematocrit 32.5 % (41.0-53.0); Hemoglobin 10.7 g/dL (13.5-17.5); Lymphocytes # (auto) 0.6 10 ^3/uL (0.4-5.4); Lymphocytes % (auto) 6.4 % (10.0-50.0); Mean Corpuscular Hemoglobin 26.9 pg (28.0-32.0); Mean Corpuscular Hgb Conc. 32.7 g/dL (32.0-36.0); Mean Corpuscular Volume 82.2 fL (80.0-100.0); Monocytes # (auto) 0.3 10 ^3/uL (0-1.3); Monocytes % (auto) 2.7 % (0.0-12.0); Neutrophils # (auto) 8.9 10 ^3/uL (1.6-8.6); Neutrophils % (auto) 90.3 % (37.0-80.0); Red Blood Cells 3.96 10^6/uL (4.5-5.90); Red Cell Distribution Width 17.8 % (11.8-14.3); White Blood Cell 9.9 10^3/uL (4.4-10.8)
[2021-01-31 06:02] LABS: Albumin 1.5 g/dL (3.4-5.0); Magnesium 2.3 mg/dL (1.6-2.6); Potassium 3.3 mmol/L (3.5-5.1)
[2021-01-31 06:07] LABS: BUN/Creatinine Ratio 44.6; Bilirubin, Total 0.3 mg/dL (0.2-1.0); Phosphorus 3.5 mg/dL (2.5-4.90); Total Protein 4.9 g/dL (6.4-8.2)
[2021-01-31 06:08] LABS: INR 1.12 (0.9-1.15); Partial Thromboplastin Time 31.7 sec (23.0-31.2)
[2021-01-31] MEDS: METOCLOPRAMIDE HCL 5MG/ml INJ 2ml VIAL IV SCH ×3 (06:16→21:01)
[2021-01-31] MEDS: ALBUTEROL SULF 2.5 MG/0.5ML(0.5%) NEB SOLN NEB SCH ×3 (06:54→19:13)
[2021-01-31] MEDS: BUDESONIDE (INHALATION) 0.5 MG/2 ML NEB NEB SCH ×2 (06:54→19:13)
[2021-01-31] MEDS: IPRATROPIUM BROM 0.5 MG/2.5ML INH SOL NEB SCH ×3 (06:54→19:13)
[2021-01-31] MEDS: DexAMETHasone SOD PHOS 10MG/1ML VIAL INJ IV SCH (08:30)
[2021-01-31] MEDS: ZINC SULFATE 220mg CAP or TAB PO SCH (08:31)
[2021-01-31] MEDS: SODIUM CHLOR 0.9% PF (SALINE LOCK) 10ML VIAL/SYR IV SCH ×2 (08:31→21:01)
[2021-01-31] MEDS: FAMOTIDINE 20 MG TAB PO SCH ×2 (08:32→21:01)
[2021-01-31] MEDS: ASCORBIC ACID 1,000 MG TAB PO SCH (08:32)
[2021-01-31] MEDS: ENALAPRIL MALEATE 10 MG TAB PO SCH (08:33)
[2021-01-31] MEDS: NOREPINEPHRINE 8 MG/250ML KIT 250 ML IV SCH (08:33)
[2021-01-31] MEDS: ENOXAPARIN SOD 40 MG/0.4 ML SYRINGE SC SCH ×2 (08:33→21:01)
[2021-01-31] MEDS: METOPROLOL TARTRATE 25 MG TAB PO SCH ×2 (08:33→19:39)
[2021-01-31] MEDS: MIDAZOLAM DRIP 50 mg/50mL 50 ML IV SCH ×2 (09:27→15:04)
[2021-01-31] MEDS: PHENYLEPHRINE IV 250 ML IV SCH ×2 (09:27→18:52)
[2021-01-31] MEDS ORDERED: POTASSIUM PHOSPHATE 22 MEQ in SODIUM CHL 0.9% 100 ML IV ONE (09:45)
[2021-01-31] MEDS: fentaNYL Drip 2500mCg/250mlNS 250 ML IV SCH (10:00)
[2021-01-31] MEDS: PROPOFOL 100 ML IV SCH (10:25)
[2021-01-31] MEDS: D5W 5% 1,000 ML IV SCH (16:00)
[2021-01-31] MEDS ORDERED: POTASSIUM CHL 20MEQ/100ML 100 ML IV ONE (18:15)
[2021-01-31] MEDS ORDERED: TPN PER PHARMACY IV NR ×8 (20:00)
[2021-02-01] VITALS (104 sets, daily range): BP systolic 80–133; BP diastolic 27–60
[2021-02-01] MEDS: D5W 5% 1,000 ML IV SCH ×3 (00:15→20:15)
[2021-02-01] MEDS: PHENYLEPHRINE IV 250 ML IV SCH ×4 (02:00→23:39)
[2021-02-01] MEDS: METOCLOPRAMIDE HCL 5MG/ml INJ 2ml VIAL IV SCH ×3 (04:05→20:26)
[2021-02-01] MEDS: ACCU-CHEK COMFORT CURVE STRIP VI SCH ×4 (05:31→17:56)
[2021-02-01 05:32] LABS: Basophils # (auto) 0 10 ^3/uL (0-0.2); Basophils % (auto) 0.3 % (0.0-2.0); Eosinophils # (auto) 0.9 10 ^3/uL (0-0.8); Eosinophils % (auto) 9.9 % (0.0-7.0); Hematocrit 35.6 % (41.0-53.0); Hemoglobin 11.4 g/dL (13.5-17.5); Lymphocytes # (auto) 0.8 10 ^3/uL (0.4-5.4); Lymphocytes % (auto) 9.1 % (10.0-50.0); Mean Corpuscular Hemoglobin 26.7 pg (28.0-32.0); Mean Corpuscular Hgb Conc. 31.9 g/dL (32.0-36.0); Mean Corpuscular Volume 83.8 fL (80.0-100.0); Monocytes # (auto) 0.3 10 ^3/uL (0-1.3); Monocytes % (auto) 2.8 % (0.0-12.0); Neutrophils # (auto) 7.2 10 ^3/uL (1.6-8.6); Neutrophils % (auto) 77.9 % (37.0-80.0); Red Blood Cells 4.25 10^6/uL (4.5-5.90); Red Cell Distribution Width 18.3 % (11.8-14.3); White Blood Cell 9.2 10^3/uL (4.4-10.8)
[2021-02-01 05:52] LABS: Albumin 1.5 g/dL (3.4-5.0); Calcium 7.9 mg/dL (8.5-10.1); Potassium 4.1 mmol/L (3.5-5.1)
[2021-02-01] MEDS: InsuLIN REG 1unit/0.01ml Soln (100units/ml) SC SCH ×4 (05:53→17:55)
[2021-02-01 05:58] LABS: BUN/Creatinine Ratio 35.8; Bilirubin, Total 0.4 mg/dL (0.2-1.0); Magnesium 2.1 mg/dL (1.6-2.6); Phosphorus 5.4 mg/dL (2.5-4.90); Total Protein 5.4 g/dL (6.4-8.2)
[2021-02-01] MEDS: BUDESONIDE (INHALATION) 0.5 MG/2 ML NEB NEB SCH ×2 (06:43→18:34)
[2021-02-01] MEDS: ALBUTEROL SULF 2.5 MG/0.5ML(0.5%) NEB SOLN NEB SCH ×3 (06:43→18:34)
[2021-02-01] MEDS: IPRATROPIUM BROM 0.5 MG/2.5ML INH SOL NEB SCH ×3 (06:43→18:34)
[2021-02-01] MEDS: PROPOFOL 100 ML IV SCH ×2 (07:37→17:55)
[2021-02-01] MEDS: NOREPINEPHRINE 8 MG/250ML KIT 250 ML IV SCH (07:42)
[2021-02-01] MEDS: METOPROLOL TARTRATE 25 MG TAB PO SCH ×3 (07:48→21:04)
[2021-02-01] MEDS: ENALAPRIL MALEATE 10 MG TAB PO SCH (07:48)
[2021-02-01] MEDS: SODIUM CHLOR 0.9% PF (SALINE LOCK) 10ML VIAL/SYR IV SCH ×2 (08:18→20:26)
[2021-02-01] MEDS: DexAMETHasone SOD PHOS 10MG/1ML VIAL INJ IV SCH (08:18)
[2021-02-01] MEDS: ASCORBIC ACID 1,000 MG TAB PO SCH (08:19)
[2021-02-01] MEDS: ZINC SULFATE 220mg CAP or TAB PO SCH (08:19)
[2021-02-01] MEDS: ENOXAPARIN SOD 40 MG/0.4 ML SYRINGE SC SCH ×2 (08:19→20:26)
[2021-02-01] MEDS: FAMOTIDINE 20 MG TAB PO SCH ×3 (08:19→21:03)
[2021-02-01] MEDS: fentaNYL Drip 2500mCg/250mlNS 250 ML IV SCH ×2 (08:56→23:40)
[2021-02-01] MEDS: MIDAZOLAM DRIP 50 mg/50mL 50 ML IV SCH ×2 (17:55→23:53)
[2021-02-01] MEDS ORDERED: TPN PER PHARMACY IV NR ×8 (20:00)
[2021-02-01] MEDS: ACETAMINOPHEN 500 MG TAB PO PRN (21:03)
[2021-02-02] VITALS (107 sets, daily range): BP systolic 80–114; BP diastolic 32–49
[2021-02-02] MEDS ORDERED: ALBUMIN 5% 250 ML IV ONE (00:15)
[2021-02-02] MEDS: ACCU-CHEK COMFORT CURVE STRIP VI SCH ×4 (00:18→18:43)
[2021-02-02] MEDS: PROPOFOL 100 ML IV SCH ×3 (01:43→12:44)
[2021-02-02] MEDS: PHENYLEPHRINE IV 250 ML IV SCH ×2 (01:43→04:57)
[2021-02-02] MEDS: METOCLOPRAMIDE HCL 5MG/ml INJ 2ml VIAL IV SCH (04:56)
[2021-02-02] MEDS: D5W 5% 1,000 ML IV SCH (04:56)
[2021-02-02] MEDS: InsuLIN REG 1unit/0.01ml Soln (100units/ml) SC SCH ×4 (06:00→18:42)
[2021-02-02 06:01] LABS: Albumin 1.5 g/dL (3.4-5.0); Calcium 7.3 mg/dL (8.5-10.1); Magnesium 1.7 mg/dL (1.6-2.6); Potassium 4.5 mmol/L (3.5-5.1)
[2021-02-02 06:04] LABS: BUN/Creatinine Ratio 30.3; Bilirubin, Total 0.4 mg/dL (0.2-1.0); Phosphorus 4.6 mg/dL (2.5-4.90); Total Protein 4.8 g/dL (6.4-8.2)
[2021-02-02 06:21] LABS: Hematocrit 30.8 % (41.0-53.0); Hemoglobin 10.4 g/dL (13.5-17.5); Mean Corpuscular Hemoglobin 27.7 pg (28.0-32.0); Mean Corpuscular Hgb Conc. 33.6 g/dL (32.0-36.0); Mean Corpuscular Volume 82.5 fL (80.0-100.0); Red Blood Cells 3.73 10^6/uL (4.5-5.90); Red Cell Distribution Width 17.7 % (11.8-14.3); White Blood Cell 8.8 10^3/uL (4.4-10.8)
[2021-02-02 06:29] LABS: Basophils % (manual) 0 (0.0-2.0); Blast Cells 0; Metamyelocytes % 0; Myelocytes % 0; Promyelocytes % 0; Reactive Lymphocytes 0
[2021-02-02] MEDS: IPRATROPIUM BROM 0.5 MG/2.5ML INH SOL NEB SCH ×3 (06:46→22:33)
[2021-02-02] MEDS: ALBUTEROL SULF 2.5 MG/0.5ML(0.5%) NEB SOLN NEB SCH ×3 (06:46→22:34)
[2021-02-02] MEDS: DexAMETHasone SOD PHOS 10MG/1ML VIAL INJ IV SCH (08:03)
[2021-02-02] MEDS: SODIUM CHLOR 0.9% PF (SALINE LOCK) 10ML VIAL/SYR IV SCH ×2 (08:04→19:47)
[2021-02-02] MEDS: NOREPINEPHRINE 8 MG/250ML KIT 250 ML IV SCH (08:04)
[2021-02-02] MEDS: ZINC SULFATE 220mg CAP or TAB PO SCH (08:05)
[2021-02-02] MEDS: FAMOTIDINE 20 MG TAB PO SCH (08:05)
[2021-02-02] MEDS: METOPROLOL TARTRATE 25 MG TAB PO SCH (08:05)
[2021-02-02] MEDS: ENALAPRIL MALEATE 10 MG TAB PO SCH (08:06)
[2021-02-02] MEDS: ASCORBIC ACID 1,000 MG TAB PO SCH (08:06)
[2021-02-02] MEDS: ENOXAPARIN SOD 40 MG/0.4 ML SYRINGE SC SCH (08:07)
[2021-02-02 08:10] LABS: Band Neutrophils % (manual) 17; Eosinophils % (manual) 16 (0-7); Lymphocytes % (manual) 4 (10.0-50.0); Monocytes % (manual) 3 (0-12)
[2021-02-02] MEDS: PHENYLEPHRINE INJ 40 MG in SODIUM CHL 0.9% 246 ML IV SCH ×4 (09:28→19:49)
[2021-02-02] MEDS: BUDESONIDE (INHALATION) 0.5 MG/2 ML NEB NEB SCH ×2 (09:39→22:34)
[2021-02-02] MEDS ORDERED: FUROSEMIDE 40 MG/4 ML VIAL IV ONE (10:30)
[2021-02-02] MEDS: fentaNYL Drip 2500mCg/250mlNS 250 ML IV SCH ×2 (11:04→22:29)
[2021-02-02] MEDS: MIDAZOLAM DRIP 50 mg/50mL 50 ML IV SCH ×2 (12:45→19:48)
[2021-02-02] MEDS ORDERED: TPN PER PHARMACY IV NR ×7 (20:00)
[2021-02-02] MEDS ORDERED: SODIUM BICARBONATE 8.4 % INJ 50ML VIAL IV ONE (20:15)
[2021-02-02] MEDS: VASOPRESSIN 50 UNITS in D5W 5% 247.5 ML IV SCH (21:07)
[2021-02-02] MEDS: SODIUM BICARBONATE 50ML VIAL 150 ML in D5W 5% 1,000 ML IV SCH (21:22)
[2021-02-02] MEDS: FAMOTIDINE (10MG/ML) 2ML VL IV SCH (22:04)
[2021-02-03] VITALS (100 sets, daily range): BP systolic 79–160; BP diastolic 27–63
[2021-02-03] MEDS: PHENYLEPHRINE INJ 80 MG in SODIUM CHL 0.9% 242 ML IV SCH ×3 (00:38→16:15)
[2021-02-03] MEDS: ACCU-CHEK COMFORT CURVE STRIP VI SCH ×4 (06:27→18:18)
[2021-02-03] MEDS: ALBUTEROL SULF 2.5 MG/0.5ML(0.5%) NEB SOLN NEB SCH ×3 (06:27→18:30)
[2021-02-03] MEDS: BUDESONIDE (INHALATION) 0.5 MG/2 ML NEB NEB SCH ×2 (06:27→18:30)
[2021-02-03] MEDS: IPRATROPIUM BROM 0.5 MG/2.5ML INH SOL NEB SCH ×3 (06:27→18:30)
[2021-02-03] MEDS: InsuLIN REG 1unit/0.01ml Soln (100units/ml) SC SCH ×4 (06:28→18:19)
[2021-02-03] MEDS: PROPOFOL 100 ML IV SCH ×3 (06:29→15:30)
[2021-02-03] MEDS: MIDAZOLAM DRIP 50 mg/50mL 50 ML IV SCH ×4 (06:29→20:16)
[2021-02-03 07:37] LABS: Basophils # (auto) 0 10 ^3/uL (0-0.2); Eosinophils # (auto) 0.1 10 ^3/uL (0-0.8); Lymphocytes # (auto) 0.4 10 ^3/uL (0.4-5.4); Monocytes # (auto) 0.2 10 ^3/uL (0-1.3)
[2021-02-03 07:39] LABS: Basophils % (auto) 0.5 % (0.0-2.0); Eosinophils % (auto) 0.6 % (0.0-7.0); Hematocrit 28.9 % (41.0-53.0); Hemoglobin 9.6 g/dL (13.5-17.5); Lymphocytes % (auto) 4.2 % (10.0-50.0); Mean Corpuscular Hemoglobin 26.8 pg (28.0-32.0); Mean Corpuscular Hgb Conc. 33.2 g/dL (32.0-36.0); Mean Corpuscular Volume 80.6 fL (80.0-100.0); Monocytes % (auto) 2.1 % (0.0-12.0); Neutrophils # (auto) 9.7 10 ^3/uL (1.6-8.6); Neutrophils % (auto) 92.6 % (37.0-80.0); Nucleated Red Blood Cells % 0.1 %; Red Blood Cells 3.58 10^6/uL (4.5-5.90); White Blood Cell 10.4 10^3/uL (4.4-10.8)
[2021-02-03 08:08] LABS: Calcium 7.6 mg/dL (8.5-10.1); Potassium 5.1 mmol/L (3.5-5.1)
[2021-02-03 08:15] LABS: Albumin 1.1 g/dL (3.4-5.0); BUN/Creatinine Ratio 25.9; Bilirubin, Total 0.6 mg/dL (0.2-1.0); Phosphorus 5.7 mg/dL (2.5-4.90); Total Protein 4.3 g/dL (6.4-8.2)
[2021-02-03] MEDS: SODIUM BICARBONATE 50ML VIAL 150 ML in D5W 5% 1,000 ML IV SCH (08:31)
[2021-02-03] MEDS: VASOPRESSIN 50 UNITS in D5W 5% 247.5 ML IV SCH ×2 (09:30→14:33)
[2021-02-03] MEDS ORDERED: BUMETANIDE 2.5mg/10ml (0.25 mg/ml) INJ IV ONE (09:45)
[2021-02-03] MEDS: NOREPINEPHRINE 8 MG/250ML KIT 250 ML IV SCH (10:00)
[2021-02-03] MEDS ORDERED: SODIUM CHL 0.9% 1000 ML BAG XX ONE (10:15)
[2021-02-03] MEDS: SODIUM CHLOR 0.9% PF (SALINE LOCK) 10ML VIAL/SYR IV SCH ×2 (10:29→22:00)
[2021-02-03] MEDS: FAMOTIDINE (10MG/ML) 2ML VL IV SCH (10:50)
[2021-02-03] MEDS: DexAMETHasone SOD PHOS 4 MG/1ML SDV INJ IV SCH (10:50)
[2021-02-03] MEDS: ENOXAPARIN SOD 40 MG/0.4 ML SYRINGE SC SCH (10:50)
[2021-02-03] MEDS: fentaNYL Drip 2500mCg/250mlNS 250 ML IV SCH ×2 (11:00→22:30)
[2021-02-03] MEDS ORDERED: ALBUMIN 25% 200 ML IV ONE ×2 (16:36→16:45)
[2021-02-03] MEDS: NOREPINEPHRINE BITARTRATE 16 MG in SODIUM CHL 0.9% 234 ML IV SCH (16:43)
[2021-02-03] MEDS ORDERED: TPN PER PHARMACY IV NR ×8 (20:00)
[2021-02-04] VITALS (103 sets, daily range): BP systolic 74–141; BP diastolic 35–67
[2021-02-04] MEDS: PHENYLEPHRINE INJ 80 MG in SODIUM CHL 0.9% 242 ML IV SCH ×3 (01:15→16:00)
[2021-02-04] MEDS: VASOPRESSIN 50 UNITS in D5W 5% 247.5 ML IV SCH (01:16)
[2021-02-04] MEDS: PROPOFOL 100 ML IV SCH ×2 (01:17→18:00)
[2021-02-04] MEDS: MIDAZOLAM DRIP 50 mg/50mL 50 ML IV SCH ×2 (01:17→13:30)
[2021-02-04] MEDS: InsuLIN REG 1unit/0.01ml Soln (100units/ml) SC SCH ×4 (01:21→18:34)
[2021-02-04] MEDS: ACCU-CHEK COMFORT CURVE STRIP VI SCH ×4 (06:00→18:34)
[2021-02-04 06:09] LABS: Hematocrit 24.4 % (41.0-53.0); Hemoglobin 8.2 g/dL (13.5-17.5); Mean Corpuscular Hemoglobin 26.6 pg (28.0-32.0); Mean Corpuscular Hgb Conc. 33.6 g/dL (32.0-36.0); Mean Corpuscular Volume 79.1 fL (80.0-100.0); Red Blood Cells 3.08 10^6/uL (4.5-5.90); Red Cell Distribution Width 17.1 % (11.8-14.3); White Blood Cell 11.3 10^3/uL (4.4-10.8)
[2021-02-04 06:19] LABS: Potassium 4.4 mmol/L (3.5-5.1)
[2021-02-04 06:32] LABS: Albumin 1.6 g/dL (3.4-5.0); BUN/Creatinine Ratio 25.1; Basophils % (manual) 0 (0.0-2.0); Bilirubin, Total 0.7 mg/dL (0.2-1.0); Blast Cells 0; Calcium 7.1 mg/dL (8.5-10.1); Eosinophils % (manual) 0 (0-7); Magnesium 2.1 mg/dL (1.6-2.6); Phosphorus 4.5 mg/dL (2.5-4.90); Promyelocytes % 0; Reactive Lymphocytes 0; Total Protein 4.6 g/dL (6.4-8.2)
[2021-02-04] MEDS: IPRATROPIUM BROM 0.5 MG/2.5ML INH SOL NEB SCH ×3 (07:16→22:34)
[2021-02-04] MEDS: BUDESONIDE (INHALATION) 0.5 MG/2 ML NEB NEB SCH ×2 (07:16→22:34)
[2021-02-04] MEDS: ALBUTEROL SULF 2.5 MG/0.5ML(0.5%) NEB SOLN NEB SCH ×3 (07:16→22:34)
[2021-02-04 08:01] LABS: Band Neutrophils % (manual) 35; Lymphocytes % (manual) 6 (10.0-50.0); Metamyelocytes % 1; Monocytes % (manual) 6 (0-12); Myelocytes % 2
[2021-02-04] MEDS ORDERED: BUMETANIDE 2.5mg/10ml (0.25 mg/ml) INJ IV ONE (08:15)
[2021-02-04] MEDS: ERGOCALCIFEROL 50,000 UNIT(1.25MG) CAP PO SCH (08:57)
[2021-02-04] MEDS: SODIUM CHLOR 0.9% PF (SALINE LOCK) 10ML VIAL/SYR IV SCH ×2 (10:41→21:13)
[2021-02-04] MEDS: DexAMETHasone SOD PHOS 4 MG/1ML SDV INJ IV SCH (11:12)
[2021-02-04] MEDS: ENOXAPARIN SOD 40 MG/0.4 ML SYRINGE SC SCH (11:13)
[2021-02-04] MEDS: FAMOTIDINE (10MG/ML) 2ML VL IV SCH (11:13)
[2021-02-04] MEDS: fentaNYL Drip 2500mCg/250mlNS 250 ML IV SCH (13:20)
[2021-02-04] MEDS: NOREPINEPHRINE BITARTRATE 16 MG in SODIUM CHL 0.9% 234 ML IV SCH (16:00)
[2021-02-04] MEDS ORDERED: TPN PER PHARMACY IV NR ×11 (20:00)
[2021-02-05] VITALS (106 sets, daily range): BP systolic 102–142; BP diastolic 50–74
[2021-02-05] MEDS: InsuLIN REG 1unit/0.01ml Soln (100units/ml) SC SCH ×4 (00:03→18:41)
[2021-02-05] MEDS: ACCU-CHEK COMFORT CURVE STRIP VI SCH ×4 (00:03→18:41)
[2021-02-05] MEDS: PHENYLEPHRINE INJ 80 MG in SODIUM CHL 0.9% 242 ML IV SCH ×3 (00:04→22:57)
[2021-02-05] MEDS: MIDAZOLAM DRIP 50 mg/50mL 50 ML IV SCH ×3 (02:09→18:10)
[2021-02-05] MEDS: fentaNYL Drip 2500mCg/250mlNS 250 ML IV SCH ×2 (04:47→20:33)
[2021-02-05] MEDS: BUDESONIDE (INHALATION) 0.5 MG/2 ML NEB NEB SCH ×2 (06:44→22:41)
[2021-02-05] MEDS: ALBUTEROL SULF 2.5 MG/0.5ML(0.5%) NEB SOLN NEB SCH ×3 (06:44→22:41)
[2021-02-05] MEDS: IPRATROPIUM BROM 0.5 MG/2.5ML INH SOL NEB SCH ×3 (06:44→22:41)
[2021-02-05 06:58] LABS: White Blood Cell 22.6 10^3/uL (4.4-10.8)
[2021-02-05 07:01] LABS: Hematocrit 25.1 % (41.0-53.0); Hemoglobin 8.6 g/dL (13.5-17.5); Mean Corpuscular Hemoglobin 26.9 pg (28.0-32.0); Mean Corpuscular Hgb Conc. 34.4 g/dL (32.0-36.0); Mean Corpuscular Volume 78.2 fL (80.0-100.0); Red Blood Cells 3.21 10^6/uL (4.5-5.90); Red Cell Distribution Width 18.1 % (11.8-14.3)
[2021-02-05 07:10] LABS: Basophils % (manual) 0 (0.0-2.0); Blast Cells 0; Eosinophils % (manual) 0 (0-7); Promyelocytes % 0; Reactive Lymphocytes 0
[2021-02-05 07:17] LABS: Potassium 4.5 mmol/L (3.5-5.1)
[2021-02-05 07:24] LABS: Albumin 1.3 g/dL (3.4-5.0); BUN/Creatinine Ratio 25.7; Bilirubin, Total 0.5 mg/dL (0.2-1.0); Calcium 7.3 mg/dL (8.5-10.1); Phosphorus 3.9 mg/dL (2.5-4.90); Pre Albumin 3.9 mg/dL (20.0-40.0); Total Protein 4.5 g/dL (6.4-8.2)
[2021-02-05 08:13] LABS: Band Neutrophils % (manual) 15; Lymphocytes % (manual) 5 (10.0-50.0); Metamyelocytes % 1; Monocytes % (manual) 4 (0-12); Myelocytes % 1
[2021-02-05] MEDS: PROPOFOL 100 ML IV SCH (09:38)
[2021-02-05] MEDS: SODIUM CHLOR 0.9% PF (SALINE LOCK) 10ML VIAL/SYR IV SCH ×2 (10:56→22:43)
[2021-02-05] MEDS: ENOXAPARIN SOD 40 MG/0.4 ML SYRINGE SC SCH (11:38)
[2021-02-05] MEDS: DexAMETHasone SOD PHOS 4 MG/1ML SDV INJ IV SCH (11:38)
[2021-02-05] MEDS: FAMOTIDINE (10MG/ML) 2ML VL IV SCH (11:39)
[2021-02-05] MEDS: NOREPINEPHRINE BITARTRATE 16 MG in SODIUM CHL 0.9% 234 ML IV SCH ×2 (11:56→16:47)
[2021-02-05] MEDS ORDERED: PIPERACILLIN-TAZOB 2.25GM 50 ML IV ONE (12:00)
[2021-02-05] MEDS ORDERED: SODIUM CHL 0.9% 1000 ML BAG XX ONE (13:15)
[2021-02-05] MEDS: VASOPRESSIN 50 UNITS in D5W 5% 247.5 ML IV SCH (14:14)
[2021-02-05] MEDS: PIPERACILLIN-TAZOB 2.25GM 50 ML IV SCH ×2 (18:23→23:39)
[2021-02-05] MEDS ORDERED: TPN*HIGH CONC* PER PHARMACY IV NR ×10 (20:00)
[2021-02-06] VITALS (107 sets, daily range): BP systolic 98–135; BP diastolic 44–69
[2021-02-06] MEDS: ACCU-CHEK COMFORT CURVE STRIP VI SCH ×4 (00:17→18:35)
[2021-02-06] MEDS: InsuLIN REG 1unit/0.01ml Soln (100units/ml) SC SCH ×4 (00:18→18:34)
[2021-02-06] MEDS: MIDAZOLAM DRIP 50 mg/50mL 50 ML IV SCH ×4 (00:18→18:55)
[2021-02-06] MEDS: PIPERACILLIN-TAZOB 2.25GM 50 ML IV SCH ×3 (05:47→18:05)
[2021-02-06 06:06] LABS: Albumin 1.1 g/dL (3.4-5.0); Calcium 6.9 mg/dL (8.5-10.1); Magnesium 2.1 mg/dL (1.6-2.6); Potassium 3.9 mmol/L (3.5-5.1)
[2021-02-06 06:07] LABS: Mean Corpuscular Hemoglobin 26.5 pg (28.0-32.0)
[2021-02-06 06:09] LABS: BUN/Creatinine Ratio 24.6; Bilirubin, Total 0.4 mg/dL (0.2-1.0); Hematocrit 24.6 % (41.0-53.0); Hemoglobin 8.2 g/dL (13.5-17.5); Mean Corpuscular Hgb Conc. 33.6 g/dL (32.0-36.0); Mean Corpuscular Volume 78.9 fL (80.0-100.0); Phosphorus 2.9 mg/dL (2.5-4.90); Red Blood Cells 3.11 10^6/uL (4.5-5.90); Red Cell Distribution Width 18.2 % (11.8-14.3); Total Protein 4.2 g/dL (6.4-8.2); White Blood Cell 23.3 10^3/uL (4.4-10.8)
[2021-02-06 06:14] LABS: Basophils % (manual) 0 (0.0-2.0); Blast Cells 0; Eosinophils % (manual) 0 (0-7); Promyelocytes % 0; Reactive Lymphocytes 0
[2021-02-06] MEDS: IPRATROPIUM BROM 0.5 MG/2.5ML INH SOL NEB SCH ×3 (06:27→22:32)
[2021-02-06] MEDS: ALBUTEROL SULF 2.5 MG/0.5ML(0.5%) NEB SOLN NEB SCH ×3 (06:27→22:32)
[2021-02-06] MEDS: BUDESONIDE (INHALATION) 0.5 MG/2 ML NEB NEB SCH ×2 (06:28→22:32)
[2021-02-06] MEDS: PHENYLEPHRINE INJ 80 MG in SODIUM CHL 0.9% 242 ML IV SCH ×2 (06:36→14:30)
[2021-02-06 08:35] LABS: Band Neutrophils % (manual) 12; Lymphocytes % (manual) 6 (10.0-50.0); Metamyelocytes % 1; Monocytes % (manual) 3 (0-12); Myelocytes % 1
[2021-02-06] MEDS: PROPOFOL 100 ML IV SCH (09:59)
[2021-02-06] MEDS: SODIUM CHLOR 0.9% PF (SALINE LOCK) 10ML VIAL/SYR IV SCH ×2 (10:00→22:34)
[2021-02-06] MEDS: FAMOTIDINE (10MG/ML) 2ML VL IV SCH (10:22)
[2021-02-06] MEDS: DexAMETHasone SOD PHOS 4 MG/1ML SDV INJ IV SCH (10:22)
[2021-02-06] MEDS: ENOXAPARIN SOD 40 MG/0.4 ML SYRINGE SC SCH (10:22)
[2021-02-06] MEDS: fentaNYL Drip 2500mCg/250mlNS 250 ML IV SCH ×2 (13:20→22:30)
[2021-02-06] MEDS: VASOPRESSIN 50 UNITS in D5W 5% 247.5 ML IV SCH (13:47)
[2021-02-06] MEDS: NOREPINEPHRINE BITARTRATE 16 MG in SODIUM CHL 0.9% 234 ML IV SCH (14:41)
[2021-02-06] MEDS ORDERED: TPN*HIGH CONC* PER PHARMACY IV NR ×10 (20:00)
[2021-02-07] VITALS (104 sets, daily range): BP systolic 86–139; BP diastolic 44–73
[2021-02-07] MEDS: PIPERACILLIN-TAZOB 2.25GM 50 ML IV SCH ×4 (00:38→18:29)
[2021-02-07] MEDS: ALBUTEROL SULF 2.5 MG/0.5ML(0.5%) NEB SOLN NEB SCH ×3 (05:40→20:35)
[2021-02-07] MEDS: IPRATROPIUM BROM 0.5 MG/2.5ML INH SOL NEB SCH ×3 (05:40→20:35)
[2021-02-07] MEDS: BUDESONIDE (INHALATION) 0.5 MG/2 ML NEB NEB SCH ×2 (06:02→20:35)
[2021-02-07] MEDS: ACCU-CHEK COMFORT CURVE STRIP VI SCH ×4 (06:06→17:37)
[2021-02-07] MEDS: InsuLIN REG 1unit/0.01ml Soln (100units/ml) SC SCH ×4 (06:06→17:37)
[2021-02-07] MEDS: PROPOFOL 100 ML IV SCH (07:43)
[2021-02-07] MEDS: DexAMETHasone SOD PHOS 4 MG/1ML SDV INJ IV SCH (07:47)
[2021-02-07] MEDS: FAMOTIDINE (10MG/ML) 2ML VL IV SCH (07:48)
[2021-02-07] MEDS: SODIUM CHLOR 0.9% PF (SALINE LOCK) 10ML VIAL/SYR IV SCH ×2 (07:49→22:00)
[2021-02-07] MEDS: ENOXAPARIN SOD 40 MG/0.4 ML SYRINGE SC SCH (07:49)
[2021-02-07 09:43] LABS: Hematocrit 26.7 % (41.0-53.0); Hemoglobin 8.9 g/dL (13.5-17.5); Mean Corpuscular Hgb Conc. 33.2 g/dL (32.0-36.0); Mean Corpuscular Volume 84.2 fL (80.0-100.0); Red Blood Cells 3.17 10^6/uL (4.5-5.90); Red Cell Distribution Width 19.9 % (11.8-14.3); White Blood Cell 22.8 10^3/uL (4.4-10.8)
[2021-02-07 09:53] LABS: Basophils % (manual) 0 (0.0-2.0); Blast Cells 0; Eosinophils % (manual) 0 (0-7); Metamyelocytes % 0; Myelocytes % 0; Promyelocytes % 0; Reactive Lymphocytes 0
[2021-02-07 09:56] LABS: Calcium 6.3 mg/dL (8.5-10.1); Magnesium 2.5 mg/dL (1.6-2.6); Potassium 4.3 mmol/L (3.5-5.1)
[2021-02-07 10:07] LABS: Bilirubin, Total 0.4 mg/dL (0.2-1.0); Phosphorus 4.5 mg/dL (2.5-4.90)
[2021-02-07 10:16] LABS: BUN/Creatinine Ratio 24.9
[2021-02-07 13:06] LABS: Band Neutrophils % (manual) 11; Lymphocytes % (manual) 9 (10.0-50.0); Monocytes % (manual) 5 (0-12)
[2021-02-07] MEDS: VASOPRESSIN 50 UNITS in D5W 5% 247.5 ML IV SCH (14:02)
[2021-02-07] MEDS: NOREPINEPHRINE BITARTRATE 16 MG in SODIUM CHL 0.9% 234 ML IV SCH (14:38)
[2021-02-07] MEDS: LINEZOLID 600MG/300ML 300 ML IV SCH (15:25)
[2021-02-07] MEDS: fentaNYL Drip 2500mCg/250mlNS 250 ML IV SCH (18:59)
[2021-02-07] MEDS ORDERED: TPN*HIGH CONC* PER PHARMACY IV NR ×10 (20:00)
[2021-02-07] MEDS: PHENYLEPHRINE INJ 80 MG in SODIUM CHL 0.9% 242 ML IV SCH (20:15)
[2021-02-08] VITALS (86 sets, daily range): BP systolic 77–124; BP diastolic 42–67
[2021-02-08] MEDS ORDERED: PHENYLEPHRINE IV 250 ML IV ONE ×2 (00:52→05:26)
[2021-02-08] MEDS: fentaNYL Drip 2500mCg/250mlNS 250 ML IV SCH (01:06)
[2021-02-08] MEDS: LINEZOLID 600MG/300ML 300 ML IV SCH ×2 (03:25→15:25)
[2021-02-08 05:18] LABS: Hemoglobin 8.5 g/dL (13.5-17.5); Mean Corpuscular Hemoglobin 26.6 pg (28.0-32.0)
[2021-02-08 05:20] LABS: Hematocrit 24.9 % (41.0-53.0); Mean Corpuscular Volume 78.3 fL (80.0-100.0); Red Blood Cells 3.19 10^6/uL (4.5-5.90); Red Cell Distribution Width 18.8 % (11.8-14.3); White Blood Cell 22.5 10^3/uL (4.4-10.8)
[2021-02-08 05:36] LABS: Potassium 3.9 mmol/L (3.5-5.1)
[2021-02-08 05:45] LABS: BUN/Creatinine Ratio 31.7; Bilirubin, Total 0.7 mg/dL (0.2-1.0); Calcium 7.3 mg/dL (8.5-10.1); Magnesium 2.2 mg/dL (1.6-2.6); Phosphorus 3.7 mg/dL (2.5-4.90); Total Protein 4.2 g/dL (6.4-8.2)
[2021-02-08 05:58] LABS: Basophils % (manual) 0 (0.0-2.0); Blast Cells 0; Promyelocytes % 0; Reactive Lymphocytes 0
[2021-02-08] MEDS: ALBUTEROL SULF 2.5 MG/0.5ML(0.5%) NEB SOLN NEB SCH ×3 (05:59→18:40)
[2021-02-08] MEDS: IPRATROPIUM BROM 0.5 MG/2.5ML INH SOL NEB SCH ×3 (05:59→18:40)
[2021-02-08] MEDS: BUDESONIDE (INHALATION) 0.5 MG/2 ML NEB NEB SCH ×2 (05:59→18:40)
[2021-02-08] MEDS: PIPERACILLIN-TAZOB 2.25GM 50 ML IV SCH ×5 (06:11→23:46)
[2021-02-08] MEDS: ACCU-CHEK COMFORT CURVE STRIP VI SCH ×5 (06:12→23:48)
[2021-02-08] MEDS: InsuLIN REG 1unit/0.01ml Soln (100units/ml) SC SCH ×5 (06:13→23:48)
[2021-02-08 07:22] LABS: Band Neutrophils % (manual) 25; Eosinophils % (manual) 1 (0-7); Lymphocytes % (manual) 7 (10.0-50.0); Metamyelocytes % 1; Monocytes % (manual) 3 (0-12); Myelocytes % 1
[2021-02-08] MEDS: DexAMETHasone SOD PHOS 4 MG/1ML SDV INJ IV SCH (10:50)
[2021-02-08] MEDS: SODIUM CHLOR 0.9% PF (SALINE LOCK) 10ML VIAL/SYR IV SCH ×2 (10:51→22:00)
[2021-02-08] MEDS: ENOXAPARIN SOD 40 MG/0.4 ML SYRINGE SC SCH (10:51)
[2021-02-08] MEDS: FAMOTIDINE (10MG/ML) 2ML VL IV SCH (10:51)
[2021-02-08] MEDS ORDERED: ALBUMIN 25% 200 ML IV ONE (10:59)
[2021-02-08] MEDS: PROPOFOL 100 ML IV SCH (11:14)
[2021-02-08] MEDS ORDERED: ALBUMIN 25% 100 ML IV ONE (11:45)
[2021-02-08] MEDS: VASOPRESSIN 50 UNITS in D5W 5% 247.5 ML IV SCH (14:30)
[2021-02-08] MEDS: MIDAZOLAM DRIP 50 mg/50mL 50 ML IV SCH (14:53)
[2021-02-08] MEDS: NOREPINEPHRINE BITARTRATE 16 MG in SODIUM CHL 0.9% 234 ML IV SCH (17:07)
[2021-02-08] MEDS: TPN PER PHARMACY IV NR ×11 (19:45)
[2021-02-08] MEDS: PHENYLEPHRINE INJ 80 MG in SODIUM CHL 0.9% 242 ML IV SCH (22:37)
[2021-02-09] VITALS (95 sets, daily range): BP systolic 86–132; BP diastolic 39–68
[2021-02-09] MEDS: LINEZOLID 600MG/300ML 300 ML IV SCH ×2 (03:17→15:19)
[2021-02-09] MEDS: ACCU-CHEK COMFORT CURVE STRIP VI SCH ×3 (05:57→18:16)
[2021-02-09] MEDS: InsuLIN REG 1unit/0.01ml Soln (100units/ml) SC SCH ×3 (05:57→18:16)
[2021-02-09] MEDS: PIPERACILLIN-TAZOB 2.25GM 50 ML IV SCH ×4 (05:57→23:20)
[2021-02-09] MEDS: ALBUTEROL SULF 2.5 MG/0.5ML(0.5%) NEB SOLN NEB SCH ×3 (07:34→22:21)
[2021-02-09] MEDS: BUDESONIDE (INHALATION) 0.5 MG/2 ML NEB NEB SCH ×2 (07:34→22:21)
[2021-02-09] MEDS: IPRATROPIUM BROM 0.5 MG/2.5ML INH SOL NEB SCH ×3 (07:34→22:21)
[2021-02-09] MEDS: DexAMETHasone SOD PHOS 4 MG/1ML SDV INJ IV SCH (08:21)
[2021-02-09] MEDS: MIDAZOLAM DRIP 50 mg/50mL 50 ML IV SCH (08:21)
[2021-02-09] MEDS: PROPOFOL 100 ML IV SCH (08:21)
[2021-02-09] MEDS: FAMOTIDINE (10MG/ML) 2ML VL IV SCH (08:21)
[2021-02-09] MEDS: SODIUM CHLOR 0.9% PF (SALINE LOCK) 10ML VIAL/SYR IV SCH ×2 (08:21→23:20)
[2021-02-09] MEDS: ENOXAPARIN SOD 40 MG/0.4 ML SYRINGE SC SCH (08:22)
[2021-02-09] MEDS ORDERED: FLUCONAZOLE 200MG/100ML 100 ML IV ONE (10:15)
[2021-02-09 10:31] LABS: Hematocrit 27.4 % (41.0-53.0); Hemoglobin 8.9 g/dL (13.5-17.5); Mean Corpuscular Hemoglobin 25.8 pg (28.0-32.0); Mean Corpuscular Hgb Conc. 32.4 g/dL (32.0-36.0); Mean Corpuscular Volume 79.5 fL (80.0-100.0); Red Blood Cells 3.44 10^6/uL (4.5-5.90); Red Cell Distribution Width 19.1 % (11.8-14.3); White Blood Cell 28.5 10^3/uL (4.4-10.8)
[2021-02-09 10:33] LABS: Basophils % (manual) 0 (0.0-2.0); Blast Cells 0; Eosinophils % (manual) 0 (0-7); Promyelocytes % 0; Reactive Lymphocytes 0
[2021-02-09 10:47] LABS: Albumin 1.6 g/dL (3.4-5.0); Calcium 7.7 mg/dL (8.5-10.1); Magnesium 2.4 mg/dL (1.6-2.6); Potassium 4.1 mmol/L (3.5-5.1)
[2021-02-09 10:50] LABS: BUN/Creatinine Ratio 30.5; Bilirubin, Total 0.5 mg/dL (0.2-1.0); Phosphorus 3.6 mg/dL (2.5-4.90); Total Protein 4.7 g/dL (6.4-8.2)
[2021-02-09 12:30] LABS: Band Neutrophils % (manual) 11; Lymphocytes % (manual) 2 (10.0-50.0); Metamyelocytes % 2; Monocytes % (manual) 2 (0-12); Myelocytes % 1
[2021-02-09] MEDS: VASOPRESSIN 50 UNITS in D5W 5% 247.5 ML IV SCH (14:30)
[2021-02-09] MEDS: NOREPINEPHRINE BITARTRATE 16 MG in SODIUM CHL 0.9% 234 ML IV SCH (15:19)
[2021-02-09] MEDS: TPN PER PHARMACY IV NR ×11 (19:43)
[2021-02-09] MEDS ORDERED: TPN*HIGH CONC* PER PHARMACY IV NR ×12 (20:00)
[2021-02-10] VITALS (93 sets, daily range): BP systolic 88–148; BP diastolic 38–72
[2021-02-10] MEDS: ACCU-CHEK COMFORT CURVE STRIP VI SCH ×4 (00:17→17:44)
[2021-02-10] MEDS: InsuLIN REG 1unit/0.01ml Soln (100units/ml) SC SCH ×4 (00:18→18:08)
[2021-02-10] MEDS: MIDAZOLAM DRIP 50 mg/50mL 50 ML IV SCH ×3 (01:00→22:49)
[2021-02-10] MEDS: LINEZOLID 600MG/300ML 300 ML IV SCH (03:57)
[2021-02-10] MEDS: fentaNYL Drip 2500mCg/250mlNS 250 ML IV SCH (04:18)
[2021-02-10 05:09] LABS: Hematocrit 21.6 % (41.0-53.0); Hemoglobin 7.4 g/dL (13.5-17.5); Mean Corpuscular Hemoglobin 27.1 pg (28.0-32.0); Mean Corpuscular Volume 79.7 fL (80.0-100.0); Red Blood Cells 2.71 10^6/uL (4.5-5.90); Red Cell Distribution Width 19.4 % (11.8-14.3); White Blood Cell 25.4 10^3/uL (4.4-10.8)
[2021-02-10 05:27] LABS: Basophils % (manual) 0 (0.0-2.0); Blast Cells 0; Eosinophils % (manual) 0 (0-7); Metamyelocytes % 0; Monocytes % (manual) 0 (0-12); Myelocytes % 0; Promyelocytes % 0; Reactive Lymphocytes 0
[2021-02-10 05:27] LABS: Albumin 1.2 g/dL (3.4-5.0); Calcium 7.5 mg/dL (8.5-10.1); Magnesium 2.3 mg/dL (1.6-2.6); Potassium 4.1 mmol/L (3.5-5.1)
[2021-02-10 05:30] LABS: Bilirubin, Total 0.7 mg/dL (0.2-1.0); Phosphorus 4.1 mg/dL (2.5-4.90); Total Protein 4.2 g/dL (6.4-8.2)
[2021-02-10] MEDS: BUDESONIDE (INHALATION) 0.5 MG/2 ML NEB NEB SCH ×2 (06:08→19:01)
[2021-02-10] MEDS: IPRATROPIUM BROM 0.5 MG/2.5ML INH SOL NEB SCH ×3 (06:08→19:01)
[2021-02-10] MEDS: ALBUTEROL SULF 2.5 MG/0.5ML(0.5%) NEB SOLN NEB SCH ×3 (06:08→19:01)
[2021-02-10] MEDS: PIPERACILLIN-TAZOB 2.25GM 50 ML IV SCH ×3 (06:25→18:10)
[2021-02-10 06:37] LABS: Band Neutrophils % (manual) 26; Lymphocytes % (manual) 3 (10.0-50.0)
[2021-02-10] MEDS: PHENYLEPHRINE INJ 80 MG in SODIUM CHL 0.9% 242 ML IV SCH (07:32)
[2021-02-10] MEDS: ENOXAPARIN SOD 40 MG/0.4 ML SYRINGE SC SCH (07:39)
[2021-02-10] MEDS: PROPOFOL 100 ML IV SCH (09:55)
[2021-02-10] MEDS: DexAMETHasone SOD PHOS 4 MG/1ML SDV INJ IV SCH (09:55)
[2021-02-10] MEDS: FLUCONAZOLE 200MG/100ML 100 ML IV SCH (09:55)
[2021-02-10] MEDS: FAMOTIDINE (10MG/ML) 2ML VL IV SCH (09:56)
[2021-02-10] MEDS: SODIUM CHLOR 0.9% PF (SALINE LOCK) 10ML VIAL/SYR IV SCH ×2 (09:56→22:14)
[2021-02-10] MEDS ORDERED: VANCOMYCIN PER PHARMACY 0 MG IV SCH (11:00)
[2021-02-10] MEDS ORDERED: VANCOMYCIN 1GM/250ML 250 ML IV ONE (11:30)
[2021-02-10 11:38] LABS: % Iron Saturation 46.1 % (20-55)
[2021-02-10] MEDS ORDERED: SODIUM FERR GLUC 62.5MG/5ML 125 MG in SODIUM CHL 0.9% 100 ML IV ONE (14:30)
[2021-02-10] MEDS: VASOPRESSIN 50 UNITS in D5W 5% 247.5 ML IV SCH (14:30)
[2021-02-10] MEDS: NOREPINEPHRINE BITARTRATE 16 MG in SODIUM CHL 0.9% 234 ML IV SCH (17:19)
[2021-02-10] MEDS ORDERED: TPN PER PHARMACY IV NR ×11 (20:00)
[2021-02-10] MEDS ORDERED: EPOETIN ALFA-EPBX 10,000 UNIT/1ML VIAL SC ONE (21:00)
[2021-02-11] VITALS (103 sets, daily range): BP systolic 88–139; BP diastolic 43–74
[2021-02-11] MEDS: PHENYLEPHRINE INJ 80 MG in SODIUM CHL 0.9% 242 ML IV SCH (00:39)
[2021-02-11] MEDS: PIPERACILLIN-TAZOB 2.25GM 50 ML IV SCH ×2 (00:40→05:35)
[2021-02-11] MEDS: InsuLIN REG 1unit/0.01ml Soln (100units/ml) SC SCH ×4 (00:41→18:31)
[2021-02-11] MEDS: ACCU-CHEK COMFORT CURVE STRIP VI SCH ×4 (00:41→18:33)
[2021-02-11] MEDS: fentaNYL Drip 2500mCg/250mlNS 250 ML IV SCH (02:00)
[2021-02-11] MEDS: MIDAZOLAM DRIP 50 mg/50mL 50 ML IV SCH ×2 (04:54→22:14)
[2021-02-11] MEDS: ALBUTEROL SULF 2.5 MG/0.5ML(0.5%) NEB SOLN NEB SCH ×3 (06:11→22:20)
[2021-02-11] MEDS: IPRATROPIUM BROM 0.5 MG/2.5ML INH SOL NEB SCH ×3 (06:11→22:20)
[2021-02-11] MEDS: BUDESONIDE (INHALATION) 0.5 MG/2 ML NEB NEB SCH ×2 (06:12→22:20)
[2021-02-11 07:36] LABS: Hematocrit 28.3 % (41.0-53.0); Hemoglobin 9.1 g/dL (13.5-17.5); Mean Corpuscular Hgb Conc. 32.1 g/dL (32.0-36.0); Mean Corpuscular Volume 81.2 fL (80.0-100.0); Red Blood Cells 3.49 10^6/uL (4.5-5.90); Red Cell Distribution Width 19.9 % (11.8-14.3)
[2021-02-11 07:49] LABS: Basophils % (manual) 0 (0.0-2.0); Blast Cells 0; Eosinophils % (manual) 0 (0-7); Metamyelocytes % 0; Myelocytes % 0; Promyelocytes % 0; Reactive Lymphocytes 0; White Blood Cell 32.6 10^3/uL (4.4-10.8)
[2021-02-11 07:52] LABS: Albumin 1.1 g/dL (3.4-5.0); Calcium 7.7 mg/dL (8.5-10.1); Magnesium 2.4 mg/dL (1.6-2.6); Potassium 4.4 mmol/L (3.5-5.1)
[2021-02-11 07:56] LABS: BUN/Creatinine Ratio 32.5; Bilirubin, Total 0.5 mg/dL (0.2-1.0); Phosphorus 4.3 mg/dL (2.5-4.90); Total Protein 4.3 g/dL (6.4-8.2)
[2021-02-11 08:00] LABS: Band Neutrophils % (manual) 13; Lymphocytes % (manual) 4 (10.0-50.0); Monocytes % (manual) 1 (0-12)
[2021-02-11] MEDS: ERGOCALCIFEROL 50,000 UNIT(1.25MG) CAP PO SCH (08:00)
[2021-02-11] MEDS: PROPOFOL 100 ML IV SCH (10:00)
[2021-02-11] MEDS: FLUCONAZOLE 200MG/100ML 100 ML IV SCH (10:00)
[2021-02-11] MEDS: MEROPENEM 1GM IVPB 100 ML IV SCH ×2 (10:00→20:53)
[2021-02-11] MEDS: DexAMETHasone SOD PHOS 4 MG/1ML SDV INJ IV SCH (10:00)
[2021-02-11] MEDS: SODIUM CHLOR 0.9% PF (SALINE LOCK) 10ML VIAL/SYR IV SCH ×2 (10:00→20:53)
[2021-02-11] MEDS: FAMOTIDINE (10MG/ML) 2ML VL IV SCH (10:00)
[2021-02-11] MEDS: ENOXAPARIN SOD 40 MG/0.4 ML SYRINGE SC SCH (10:00)
[2021-02-11] MEDS: SODIUM FERR GLUC 62.5MG/5ML 125 MG in SODIUM CHL 0.9% 100 ML IV SCH (12:26)
[2021-02-11] MEDS: VASOPRESSIN 50 UNITS in D5W 5% 247.5 ML IV SCH (14:30)
[2021-02-11] MEDS ORDERED: SODIUM BICARBONATE 8.4 % INJ 50ML VIAL IV ONE (15:00)
[2021-02-11] MEDS ORDERED: VANCOMYCIN 1GM/250ML 250 ML IV ONE (15:30)
[2021-02-11] MEDS: NOREPINEPHRINE BITARTRATE 16 MG in SODIUM CHL 0.9% 234 ML IV SCH (16:15)
[2021-02-11] MEDS ORDERED: TPN*HIGH CONC* PER PHARMACY IV NR ×9 (20:00)
[2021-02-11] MEDS ORDERED: VANCOMYCIN 500 MG in D5W 5% 100 ML IV ONE (23:00)
[2021-02-12] VITALS (103 sets, daily range): BP systolic 85–133; BP diastolic 48–65
[2021-02-12] MEDS: InsuLIN REG 1unit/0.01ml Soln (100units/ml) SC SCH ×4 (00:42→18:36)
[2021-02-12] MEDS: ACCU-CHEK COMFORT CURVE STRIP VI SCH ×4 (00:43→17:55)
[2021-02-12] MEDS: fentaNYL Drip 2500mCg/250mlNS 250 ML IV SCH ×2 (02:37→15:30)
[2021-02-12] MEDS: MIDAZOLAM DRIP 50 mg/50mL 50 ML IV SCH ×6 (03:37→23:45)
[2021-02-12] MEDS ORDERED: PHENYLEPHRINE HCL 10 MG/ML VL ONE (04:08)
[2021-02-12] MEDS: PHENYLEPHRINE INJ 80 MG in SODIUM CHL 0.9% 242 ML IV SCH ×2 (04:55→21:47)
[2021-02-12 05:28] LABS: Hematocrit 24.9 % (41.0-53.0); Hemoglobin 8.4 g/dL (13.5-17.5); Red Blood Cells 3.14 10^6/uL (4.5-5.90)
[2021-02-12 05:29] LABS: Mean Corpuscular Hemoglobin 26.7 pg (28.0-32.0); Mean Corpuscular Hgb Conc. 33.7 g/dL (32.0-36.0); Mean Corpuscular Volume 79.3 fL (80.0-100.0); Red Cell Distribution Width 19.6 % (11.8-14.3)
[2021-02-12 06:03] LABS: Potassium 4.2 mmol/L (3.5-5.1)
[2021-02-12] MEDS: ALBUTEROL SULF 2.5 MG/0.5ML(0.5%) NEB SOLN NEB SCH ×3 (06:18→22:20)
[2021-02-12] MEDS: IPRATROPIUM BROM 0.5 MG/2.5ML INH SOL NEB SCH ×3 (06:18→22:20)
[2021-02-12] MEDS: BUDESONIDE (INHALATION) 0.5 MG/2 ML NEB NEB SCH ×2 (06:18→22:20)
[2021-02-12 06:20] LABS: White Blood Cell 32.9 10^3/uL (4.4-10.8)
[2021-02-12 06:22] LABS: Albumin 1.1 g/dL (3.4-5.0); BUN/Creatinine Ratio 34.2; Basophils % (manual) 0 (0.0-2.0); Bilirubin, Total 0.5 mg/dL (0.2-1.0); Blast Cells 0; Calcium 7.8 mg/dL (8.5-10.1); Eosinophils % (manual) 0 (0-7); Magnesium 2.3 mg/dL (1.6-2.6); Metamyelocytes % 0; Phosphorus 5.1 mg/dL (2.5-4.90); Pre Albumin 10.2 mg/dL (20.0-40.0); Promyelocytes % 0; Reactive Lymphocytes 0; Total Protein 4.4 g/dL (6.4-8.2)
[2021-02-12 06:58] LABS: Band Neutrophils % (manual) 9; Lymphocytes % (manual) 1 (10.0-50.0); Monocytes % (manual) 6 (0-12); Myelocytes % 1
[2021-02-12] MEDS: PROPOFOL 100 ML IV SCH (10:00)
[2021-02-12] MEDS: FLUCONAZOLE 200MG/100ML 100 ML IV SCH (10:09)
[2021-02-12] MEDS: SODIUM CHLOR 0.9% PF (SALINE LOCK) 10ML VIAL/SYR IV SCH ×2 (10:14→22:26)
[2021-02-12] MEDS: FAMOTIDINE (10MG/ML) 2ML VL IV SCH (10:14)
[2021-02-12] MEDS: DexAMETHasone SOD PHOS 4 MG/1ML SDV INJ IV SCH (10:14)
[2021-02-12] MEDS: ENOXAPARIN SOD 40 MG/0.4 ML SYRINGE SC SCH (10:14)
[2021-02-12] MEDS: BUMETANIDE INJECTION 25 MG in GIVE UN-DILUTED 0 ML IV SCH ×2 (11:14→22:28)
[2021-02-12] MEDS: MEROPENEM 1GM IVPB 100 ML IV SCH ×2 (11:16→22:26)
[2021-02-12] MEDS: SODIUM FERR GLUC 62.5MG/5ML 125 MG in SODIUM CHL 0.9% 100 ML IV SCH (14:30)
[2021-02-12] MEDS: VASOPRESSIN 50 UNITS in D5W 5% 247.5 ML IV SCH (14:30)
[2021-02-12] MEDS: NOREPINEPHRINE BITARTRATE 16 MG in SODIUM CHL 0.9% 234 ML IV SCH (16:15)
[2021-02-12] MEDS: Glucerna 1.2 Cal 1Liter BOTTLE GT SCH (18:36)
[2021-02-12] MEDS ORDERED: TPN*HIGH CONC* PER PHARMACY IV NR ×10 (20:00)
[2021-02-12] MEDS ORDERED: TPN PER PHARMACY IV NR ×10 (20:00)
[2021-02-13] VITALS (104 sets, daily range): BP systolic 79–139; BP diastolic 40–74
[2021-02-13] MEDS: InsuLIN REG 1unit/0.01ml Soln (100units/ml) SC SCH ×5 (00:53→23:16)
[2021-02-13] MEDS: ACCU-CHEK COMFORT CURVE STRIP VI SCH ×5 (00:54→23:18)
[2021-02-13] MEDS: fentaNYL Drip 2500mCg/250mlNS 250 ML IV SCH ×2 (03:31→17:11)
[2021-02-13] MEDS: MIDAZOLAM DRIP 50 mg/50mL 50 ML IV SCH ×4 (04:04→18:05)
[2021-02-13] MEDS: ALBUTEROL SULF 2.5 MG/0.5ML(0.5%) NEB SOLN NEB SCH ×3 (06:12→22:25)
[2021-02-13] MEDS: IPRATROPIUM BROM 0.5 MG/2.5ML INH SOL NEB SCH ×3 (06:12→22:25)
[2021-02-13] MEDS: BUDESONIDE (INHALATION) 0.5 MG/2 ML NEB NEB SCH ×2 (06:12→22:25)
[2021-02-13 06:48] LABS: Hematocrit 25.3 % (41.0-53.0); Hemoglobin 8.4 g/dL (13.5-17.5); Mean Corpuscular Hemoglobin 26.4 pg (28.0-32.0); Mean Corpuscular Hgb Conc. 33.3 g/dL (32.0-36.0); Mean Corpuscular Volume 79.4 fL (80.0-100.0); Red Blood Cells 3.19 10^6/uL (4.5-5.90); Red Cell Distribution Width 19.7 % (11.8-14.3); White Blood Cell 29.9 10^3/uL (4.4-10.8)
[2021-02-13 06:56] LABS: Basophils % (manual) 0 (0.0-2.0); Blast Cells 0; Metamyelocytes % 0; Myelocytes % 0; Promyelocytes % 0; Reactive Lymphocytes 0
[2021-02-13 07:05] LABS: Albumin 1.1 g/dL (3.4-5.0); Calcium 7.7 mg/dL (8.5-10.1); Magnesium 2.4 mg/dL (1.6-2.6); Potassium 4.2 mmol/L (3.5-5.1)
[2021-02-13 07:09] LABS: BUN/Creatinine Ratio 37.1; Bilirubin, Total 0.5 mg/dL (0.2-1.0); Total Protein 4.3 g/dL (6.4-8.2)
[2021-02-13 07:50] LABS: Band Neutrophils % (manual) 6; Eosinophils % (manual) 1 (0-7); Lymphocytes % (manual) 1 (10.0-50.0); Monocytes % (manual) 2 (0-12)
[2021-02-13] MEDS ORDERED: DOPamine 1600MCG/ML D5W 250 ML IV SCH (09:00)
[2021-02-13] MEDS ORDERED: SODIUM BICARBONATE 50ML VIAL 75 ML in SOD CHL 0.45% 1,000 ML IV SCH (09:00)
[2021-02-13] MEDS: FLUCONAZOLE 200MG/100ML 100 ML IV SCH (09:23)
[2021-02-13] MEDS: PHENYLEPHRINE INJ 80 MG in SODIUM CHL 0.9% 242 ML IV SCH (09:24)
[2021-02-13] MEDS: PROPOFOL 100 ML IV SCH ×2 (09:51→17:02)
[2021-02-13] MEDS: MEROPENEM 1GM IVPB 100 ML IV SCH ×2 (10:21→21:57)
[2021-02-13] MEDS: ENOXAPARIN SOD 40 MG/0.4 ML SYRINGE SC SCH (10:21)
[2021-02-13] MEDS: FAMOTIDINE (10MG/ML) 2ML VL IV SCH (10:21)
[2021-02-13] MEDS: DexAMETHasone SOD PHOS 4 MG/1ML SDV INJ IV SCH (10:21)
[2021-02-13] MEDS: SODIUM CHLOR 0.9% PF (SALINE LOCK) 10ML VIAL/SYR IV SCH ×2 (10:22→21:59)
[2021-02-13] MEDS ORDERED: SODIUM BICARBONATE 8.4 % INJ 50ML VIAL IV ONE (11:45)
[2021-02-13] MEDS ORDERED: BUMETANIDE 2.5mg/10ml (0.25 mg/ml) INJ IV ONE (11:45)
[2021-02-13] MEDS: SODIUM FERR GLUC 62.5MG/5ML 125 MG in SODIUM CHL 0.9% 100 ML IV SCH (13:00)
[2021-02-13] MEDS: VASOPRESSIN 50 UNITS in D5W 5% 247.5 ML IV SCH (14:30)
[2021-02-13] MEDS: NOREPINEPHRINE BITARTRATE 16 MG in SODIUM CHL 0.9% 234 ML IV SCH (16:15)
[2021-02-13] MEDS: VANCOMYCIN HCL 125MG/5ML ORAL SOL PO SCH ×2 (17:28→21:59)
[2021-02-13] MEDS ORDERED: TPN*HIGH CONC* PER PHARMACY IV NR ×9 (20:00)
[2021-02-13] MEDS: metroNIDAZOLE 500MG/100ML 100 ML IV SCH (20:51)
[2021-02-13] MEDS: METOCLOPRAMIDE HCL 5MG/ml INJ 2ml VIAL IV SCH (21:58)
[2021-02-14] VITALS (96 sets, daily range): BP systolic 94–146; BP diastolic 38–63
[2021-02-14] MEDS: metroNIDAZOLE 500MG/100ML 100 ML IV SCH ×3 (03:22→19:56)
[2021-02-14] MEDS: VANCOMYCIN HCL 125MG/5ML ORAL SOL PO SCH ×4 (05:20→22:26)
[2021-02-14] MEDS: ACCU-CHEK COMFORT CURVE STRIP VI SCH ×4 (05:21→23:05)
[2021-02-14] MEDS: InsuLIN REG 1unit/0.01ml Soln (100units/ml) SC SCH ×4 (05:33→23:04)
[2021-02-14] MEDS: BUDESONIDE (INHALATION) 0.5 MG/2 ML NEB NEB SCH ×2 (06:46→22:06)
[2021-02-14] MEDS: IPRATROPIUM BROM 0.5 MG/2.5ML INH SOL NEB SCH ×3 (06:46→22:06)
[2021-02-14] MEDS: ALBUTEROL SULF 2.5 MG/0.5ML(0.5%) NEB SOLN NEB SCH ×3 (06:46→22:06)
[2021-02-14 07:36] LABS: Hematocrit 23.2 % (41.0-53.0); Hemoglobin 7.7 g/dL (13.5-17.5); Mean Corpuscular Hemoglobin 26.2 pg (28.0-32.0); Mean Corpuscular Hgb Conc. 33.3 g/dL (32.0-36.0); Mean Corpuscular Volume 78.6 fL (80.0-100.0); Red Blood Cells 2.94 10^6/uL (4.5-5.90); Red Cell Distribution Width 19.6 % (11.8-14.3); White Blood Cell 21.9 10^3/uL (4.4-10.8)
[2021-02-14 07:54] LABS: Basophils % (manual) 0 (0.0-2.0); Blast Cells 0; Metamyelocytes % 0; Myelocytes % 0; Promyelocytes % 0; Reactive Lymphocytes 0
[2021-02-14 08:09] LABS: Albumin 1.1 g/dL (3.4-5.0); Calcium 7.5 mg/dL (8.5-10.1); Magnesium 2.3 mg/dL (1.6-2.6); Potassium 4.3 mmol/L (3.5-5.1)
[2021-02-14 08:12] LABS: BUN/Creatinine Ratio 36.7; Bilirubin, Total 0.5 mg/dL (0.2-1.0); Phosphorus 5.3 mg/dL (2.5-4.90); Total Protein 4.2 g/dL (6.4-8.2)
[2021-02-14 09:35] LABS: Band Neutrophils % (manual) 2; Monocytes % (manual) 1 (0-12)
[2021-02-14 09:36] LABS: Lymphocytes % (manual) 2 (10.0-50.0)
[2021-02-14] MEDS: DexAMETHasone SOD PHOS 4 MG/1ML SDV INJ IV SCH (09:48)
[2021-02-14] MEDS: FLUCONAZOLE 200MG/100ML 100 ML IV SCH (09:48)
[2021-02-14] MEDS: FAMOTIDINE (10MG/ML) 2ML VL IV SCH (09:48)
[2021-02-14] MEDS: ENOXAPARIN SOD 40 MG/0.4 ML SYRINGE SC SCH (09:49)
[2021-02-14] MEDS: METOCLOPRAMIDE HCL 5MG/ml INJ 2ml VIAL IV SCH ×3 (09:49→21:37)
[2021-02-14] MEDS: FLORASTOR (S. BOULARDII) 250 MG CAP PO SCH (09:49)
[2021-02-14] MEDS: SODIUM CHLOR 0.9% PF (SALINE LOCK) 10ML VIAL/SYR IV SCH ×2 (09:49→21:10)
[2021-02-14] MEDS: MIDAZOLAM DRIP 50 mg/50mL 50 ML IV SCH ×2 (09:50→16:00)
[2021-02-14] MEDS: MEROPENEM 1GM IVPB 100 ML IV SCH ×2 (10:00→21:36)
[2021-02-14] MEDS: ALBUMIN 25% 100 ML IV SCH ×2 (10:00→11:00)
[2021-02-14] MEDS: SODIUM FERR GLUC 62.5MG/5ML 125 MG in SODIUM CHL 0.9% 100 ML IV SCH (12:00)
[2021-02-14] MEDS: VASOPRESSIN 50 UNITS in D5W 5% 247.5 ML IV SCH (14:30)
[2021-02-14] MEDS: NOREPINEPHRINE BITARTRATE 16 MG in SODIUM CHL 0.9% 234 ML IV SCH (16:15)
[2021-02-14] MEDS ORDERED: TPN PER PHARMACY IV NR ×10 (20:00)
[2021-02-14] MEDS: PHENYLEPHRINE INJ 80 MG in SODIUM CHL 0.9% 242 ML IV SCH (20:15)
[2021-02-14] MEDS: fentaNYL Drip 2500mCg/250mlNS 250 ML IV SCH (22:29)
[2021-02-15] VITALS (101 sets, daily range): BP systolic 114–159; BP diastolic 48–72
[2021-02-15] MEDS: MORPHINE SULF INJ 2 MG/ML SYRINGE 1ML IV PRN (04:00)
[2021-02-15] MEDS: metroNIDAZOLE 500MG/100ML 100 ML IV SCH ×3 (04:00→20:13)
[2021-02-15] MEDS: ACCU-CHEK COMFORT CURVE STRIP VI SCH ×4 (05:14→23:45)
[2021-02-15] MEDS: VANCOMYCIN HCL 125MG/5ML ORAL SOL PO SCH ×4 (05:15→22:25)
[2021-02-15] MEDS: InsuLIN REG 1unit/0.01ml Soln (100units/ml) SC SCH ×4 (05:50→23:45)
[2021-02-15] MEDS: IPRATROPIUM BROM 0.5 MG/2.5ML INH SOL NEB SCH ×3 (06:12→18:47)
[2021-02-15] MEDS: BUDESONIDE (INHALATION) 0.5 MG/2 ML NEB NEB SCH ×2 (06:12→18:47)
[2021-02-15] MEDS: ALBUTEROL SULF 2.5 MG/0.5ML(0.5%) NEB SOLN NEB SCH ×3 (06:12→18:47)
[2021-02-15 06:23] LABS: Hematocrit 20.4 % (41.0-53.0); Hemoglobin 7.3 g/dL (13.5-17.5); Mean Corpuscular Hemoglobin 28.3 pg (28.0-32.0); Mean Corpuscular Hgb Conc. 35.8 g/dL (32.0-36.0); Mean Corpuscular Volume 79.2 fL (80.0-100.0); Red Blood Cells 2.58 10^6/uL (4.5-5.90); Red Cell Distribution Width 19.4 % (11.8-14.3); White Blood Cell 10.8 10^3/uL (4.4-10.8)
[2021-02-15 06:41] LABS: Basophils % (manual) 0 (0.0-2.0); Blast Cells 0; Eosinophils % (manual) 0 (0-7); Metamyelocytes % 0; Myelocytes % 0; Promyelocytes % 0; Reactive Lymphocytes 0
[2021-02-15] MEDS: ENOXAPARIN SOD 40 MG/0.4 ML SYRINGE SC SCH (08:17)
[2021-02-15 08:18] LABS: Band Neutrophils % (manual) 7; Lymphocytes % (manual) 4 (10.0-50.0); Monocytes % (manual) 2 (0-12)
[2021-02-15] MEDS: DexAMETHasone SOD PHOS 4 MG/1ML SDV INJ IV SCH (09:40)
[2021-02-15] MEDS: FAMOTIDINE (10MG/ML) 2ML VL IV SCH (09:41)
[2021-02-15] MEDS: SODIUM CHLOR 0.9% PF (SALINE LOCK) 10ML VIAL/SYR IV SCH ×2 (09:41→22:25)
[2021-02-15] MEDS: FLUCONAZOLE 200MG/100ML 100 ML IV SCH (09:41)
[2021-02-15] MEDS: METOCLOPRAMIDE HCL 5MG/ml INJ 2ml VIAL IV SCH ×2 (09:41→22:24)
[2021-02-15] MEDS: PROPOFOL 100 ML IV SCH (09:41)
[2021-02-15] MEDS: FLORASTOR (S. BOULARDII) 250 MG CAP PO SCH (09:42)
[2021-02-15 10:37] LABS: Albumin 1.6 g/dL (3.4-5.0); Calcium 7.7 mg/dL (8.5-10.1); Magnesium 2.3 mg/dL (1.6-2.6); Potassium 3.7 mmol/L (3.5-5.1)
[2021-02-15 10:40] LABS: Bilirubin, Total 0.5 mg/dL (0.2-1.0); Phosphorus 3.8 mg/dL (2.5-4.90); Total Protein 4.1 g/dL (6.4-8.2)
[2021-02-15 10:42] LABS: BUN/Creatinine Ratio 35.6
[2021-02-15] MEDS: SODIUM FERR GLUC 62.5MG/5ML 125 MG in SODIUM CHL 0.9% 100 ML IV SCH (12:00)
[2021-02-15] MEDS: VASOPRESSIN 50 UNITS in D5W 5% 247.5 ML IV SCH (14:30)
[2021-02-15] MEDS: NOREPINEPHRINE BITARTRATE 16 MG in SODIUM CHL 0.9% 234 ML IV SCH (16:15)
[2021-02-15] MEDS ORDERED: TPN*HIGH CONC* PER PHARMACY IV NR ×12 (20:00)
[2021-02-15] MEDS: PHENYLEPHRINE INJ 80 MG in SODIUM CHL 0.9% 242 ML IV SCH (20:15)
[2021-02-16] VITALS (100 sets, daily range): BP systolic 78–162; BP diastolic 33–77
[2021-02-16] MEDS: MIDAZOLAM DRIP 50 mg/50mL 50 ML IV SCH ×5 (00:16→21:32)
[2021-02-16] MEDS: metroNIDAZOLE 500MG/100ML 100 ML IV SCH ×3 (04:32→21:04)
[2021-02-16] MEDS: fentaNYL Drip 2500mCg/250mlNS 250 ML IV SCH ×2 (05:51→15:15)
[2021-02-16] MEDS: VANCOMYCIN HCL 125MG/5ML ORAL SOL PO SCH ×4 (05:52→21:10)
[2021-02-16] MEDS: InsuLIN REG 1unit/0.01ml Soln (100units/ml) SC SCH ×3 (05:53→17:34)
[2021-02-16] MEDS: ACCU-CHEK COMFORT CURVE STRIP VI SCH ×3 (05:54→17:35)
[2021-02-16 06:27] LABS: Hematocrit 22.1 % (41.0-53.0); Hemoglobin 7.7 g/dL (13.5-17.5)
[2021-02-16 06:29] LABS: Mean Corpuscular Hemoglobin 27.5 pg (28.0-32.0); Mean Corpuscular Hgb Conc. 34.9 g/dL (32.0-36.0); Mean Corpuscular Volume 78.8 fL (80.0-100.0); Red Cell Distribution Width 19.1 % (11.8-14.3); White Blood Cell 10.1 10^3/uL (4.4-10.8)
[2021-02-16 06:41] LABS: Potassium 3.9 mmol/L (3.5-5.1)
[2021-02-16 06:43] LABS: Band Neutrophils % (manual) 0; Basophils % (manual) 0 (0.0-2.0); Blast Cells 0; Eosinophils % (manual) 0 (0-7); Metamyelocytes % 0; Myelocytes % 0; Promyelocytes % 0; Reactive Lymphocytes 0
[2021-02-16] MEDS: IPRATROPIUM BROM 0.5 MG/2.5ML INH SOL NEB SCH ×3 (06:47→18:26)
[2021-02-16] MEDS: BUDESONIDE (INHALATION) 0.5 MG/2 ML NEB NEB SCH ×2 (06:47→18:26)
[2021-02-16] MEDS: ALBUTEROL SULF 2.5 MG/0.5ML(0.5%) NEB SOLN NEB SCH ×3 (06:47→18:26)
[2021-02-16 06:53] LABS: Albumin 1.4 g/dL (3.4-5.0); BUN/Creatinine Ratio 37.1; Bilirubin, Total 0.6 mg/dL (0.2-1.0); Calcium 7.7 mg/dL (8.5-10.1); Magnesium 2.3 mg/dL (1.6-2.6); Phosphorus 4.8 mg/dL (2.5-4.90); Total Protein 3.8 g/dL (6.4-8.2)
[2021-02-16 07:16] LABS: Lymphocytes % (manual) 1 (10.0-50.0); Monocytes % (manual) 2 (0-12)
[2021-02-16] MEDS: PROPOFOL 100 ML IV SCH (10:00)
[2021-02-16] MEDS: METOCLOPRAMIDE HCL 5MG/ml INJ 2ml VIAL IV SCH ×2 (10:24→21:08)
[2021-02-16] MEDS: SODIUM CHLOR 0.9% PF (SALINE LOCK) 10ML VIAL/SYR IV SCH ×2 (10:24→21:08)
[2021-02-16] MEDS: FAMOTIDINE (10MG/ML) 2ML VL IV SCH (10:24)
[2021-02-16] MEDS: SODIUM FERR GLUC 62.5MG/5ML 125 MG in SODIUM CHL 0.9% 100 ML IV SCH (11:25)
[2021-02-16] MEDS: VASOPRESSIN 50 UNITS in D5W 5% 247.5 ML IV SCH (14:30)
[2021-02-16] MEDS: NOREPINEPHRINE BITARTRATE 16 MG in SODIUM CHL 0.9% 234 ML IV SCH (16:15)
[2021-02-16] MEDS ORDERED: TPN*HIGH CONC* PER PHARMACY IV NR ×19 (20:00)
[2021-02-16] MEDS ORDERED: PHENYLEPHRINE IV 250 ML IV ONE (20:19)
[2021-02-16] MEDS: PHENYLEPHRINE INJ 80 MG in SODIUM CHL 0.9% 242 ML IV SCH (21:07)
[2021-02-17] VITALS (99 sets, daily range): BP systolic 74–150; BP diastolic 1–71
[2021-02-17] MEDS: MIDAZOLAM DRIP 50 mg/50mL 50 ML IV SCH ×4 (00:15→21:53)
[2021-02-17] MEDS: ACCU-CHEK COMFORT CURVE STRIP VI SCH ×4 (00:27→18:21)
[2021-02-17] MEDS: metroNIDAZOLE 500MG/100ML 100 ML IV SCH ×3 (04:00→20:07)
[2021-02-17] MEDS: fentaNYL Drip 2500mCg/250mlNS 250 ML IV SCH ×2 (04:25→21:55)
[2021-02-17] MEDS: InsuLIN REG 1unit/0.01ml Soln (100units/ml) SC SCH ×4 (06:00→18:00)
[2021-02-17] MEDS: VANCOMYCIN HCL 125MG/5ML ORAL SOL PO SCH ×4 (06:00→22:00)
[2021-02-17 06:17] LABS: Red Blood Cells 2.88 10^6/uL (4.5-5.90); Red Cell Distribution Width 19.8 % (11.8-14.3)
[2021-02-17 06:20] LABS: Hematocrit 22.8 % (41.0-53.0); Mean Corpuscular Hemoglobin 27.8 pg (28.0-32.0); Mean Corpuscular Volume 79.3 fL (80.0-100.0); White Blood Cell 9.4 10^3/uL (4.4-10.8)
[2021-02-17] MEDS: IPRATROPIUM BROM 0.5 MG/2.5ML INH SOL NEB SCH ×3 (06:28→22:15)
[2021-02-17] MEDS: BUDESONIDE (INHALATION) 0.5 MG/2 ML NEB NEB SCH ×2 (06:28→22:15)
[2021-02-17] MEDS: ALBUTEROL SULF 2.5 MG/0.5ML(0.5%) NEB SOLN NEB SCH ×3 (06:28→22:15)
[2021-02-17 06:37] LABS: Potassium 4.2 mmol/L (3.5-5.1)
[2021-02-17 06:50] LABS: Albumin 1.3 g/dL (3.4-5.0); BUN/Creatinine Ratio 39.4; Bilirubin, Total 0.6 mg/dL (0.2-1.0); Calcium 7.4 mg/dL (8.5-10.1); Magnesium 2.3 mg/dL (1.6-2.6); Phosphorus 5.3 mg/dL (2.5-4.90); Total Protein 3.5 g/dL (6.4-8.2)
[2021-02-17] MEDS ORDERED: ALBUMIN 25% 100 ML IV ONE (07:00)
[2021-02-17 07:18] LABS: Basophils % (manual) 0 (0.0-2.0); Blast Cells 0; Eosinophils % (manual) 0 (0-7); Metamyelocytes % 0; Myelocytes % 0; Promyelocytes % 0; Reactive Lymphocytes 0
[2021-02-17 08:29] LABS: Band Neutrophils % (manual) 12; Lymphocytes % (manual) 2 (10.0-50.0); Monocytes % (manual) 2 (0-12)
[2021-02-17] MEDS: FAMOTIDINE (10MG/ML) 2ML VL IV SCH (09:40)
[2021-02-17] MEDS: METOCLOPRAMIDE HCL 5MG/ml INJ 2ml VIAL IV SCH ×2 (09:43→20:43)
[2021-02-17] MEDS: SODIUM CHLOR 0.9% PF (SALINE LOCK) 10ML VIAL/SYR IV SCH ×2 (10:00→20:44)
[2021-02-17] MEDS: PROPOFOL 100 ML IV SCH (10:00)
[2021-02-17] MEDS: VASOPRESSIN 50 UNITS in D5W 5% 247.5 ML IV SCH (14:30)
[2021-02-17] MEDS: NOREPINEPHRINE BITARTRATE 16 MG in SODIUM CHL 0.9% 234 ML IV SCH (16:15)
[2021-02-17] MEDS ORDERED: TPN PER PHARMACY IV NR ×11 (20:00)
[2021-02-17] MEDS: PHENYLEPHRINE INJ 80 MG in SODIUM CHL 0.9% 242 ML IV SCH (20:09)
[2021-02-18] VITALS (106 sets, daily range): BP systolic 78–124; BP diastolic 41–69
[2021-02-18] MEDS: metroNIDAZOLE 500MG/100ML 100 ML IV SCH ×3 (05:35→21:42)
[2021-02-18] MEDS: MIDAZOLAM DRIP 50 mg/50mL 50 ML IV SCH ×3 (05:36→18:27)
[2021-02-18] MEDS: InsuLIN REG 1unit/0.01ml Soln (100units/ml) SC SCH ×4 (06:00→18:00)
[2021-02-18] MEDS: VANCOMYCIN HCL 125MG/5ML ORAL SOL PO SCH ×4 (06:00→22:33)
[2021-02-18] MEDS: ACCU-CHEK COMFORT CURVE STRIP VI SCH ×4 (06:00→18:23)
[2021-02-18] MEDS: IPRATROPIUM BROM 0.5 MG/2.5ML INH SOL NEB SCH ×3 (06:14→22:27)
[2021-02-18] MEDS: BUDESONIDE (INHALATION) 0.5 MG/2 ML NEB NEB SCH ×2 (06:14→22:27)
[2021-02-18] MEDS: ALBUTEROL SULF 2.5 MG/0.5ML(0.5%) NEB SOLN NEB SCH ×3 (06:14→22:27)
[2021-02-18 08:03] LABS: Calcium 7.8 mg/dL (8.5-10.1)
[2021-02-18 08:09] LABS: Albumin 1.3 g/dL (3.4-5.0); BUN/Creatinine Ratio 38.4; Bilirubin, Total 0.5 mg/dL (0.2-1.0); Phosphorus 4.6 mg/dL (2.5-4.90); Total Protein 3.9 g/dL (6.4-8.2)
[2021-02-18] MEDS: PROPOFOL 100 ML IV SCH (10:00)
[2021-02-18 10:20] LABS: Eosinophils # (auto) 0.1 10 ^3/uL (0-0.8); Nucleated Red Blood Cells % 0.7 %
[2021-02-18 10:22] LABS: Basophils # (auto) 0 10 ^3/uL (0-0.2); Basophils % (auto) 0.5 % (0.0-2.0); Hematocrit 23.2 % (41.0-53.0); Lymphocytes # (auto) 0.5 10 ^3/uL (0.4-5.4); Lymphocytes % (auto) 4.7 % (10.0-50.0); Mean Corpuscular Hemoglobin 27.6 pg (28.0-32.0); Mean Corpuscular Hgb Conc. 34.6 g/dL (32.0-36.0); Mean Corpuscular Volume 79.9 fL (80.0-100.0); Monocytes # (auto) 0.1 10 ^3/uL (0-1.3); Monocytes % (auto) 1.3 % (0.0-12.0); Neutrophils # (auto) 8.9 10 ^3/uL (1.6-8.6); Neutrophils % (auto) 92.5 % (37.0-80.0); Red Cell Distribution Width 19.4 % (11.8-14.3); White Blood Cell 9.7 10^3/uL (4.4-10.8)
[2021-02-18] MEDS: SODIUM CHLOR 0.9% PF (SALINE LOCK) 10ML VIAL/SYR IV SCH ×2 (10:37→21:43)
[2021-02-18] MEDS: ERGOCALCIFEROL 50,000 UNIT(1.25MG) CAP PO SCH (10:37)
[2021-02-18] MEDS: METOCLOPRAMIDE HCL 5MG/ml INJ 2ml VIAL IV SCH ×2 (10:37→21:42)
[2021-02-18] MEDS: FAMOTIDINE (10MG/ML) 2ML VL IV SCH (10:37)
[2021-02-18] MEDS: VASOPRESSIN 50 UNITS in D5W 5% 247.5 ML IV SCH (15:13)
[2021-02-18] MEDS: NOREPINEPHRINE BITARTRATE 16 MG in SODIUM CHL 0.9% 234 ML IV SCH (15:14)
[2021-02-18] MEDS: PHENYLEPHRINE INJ 80 MG in SODIUM CHL 0.9% 242 ML IV SCH ×2 (18:20→20:15)
[2021-02-18] MEDS ORDERED: TPN*HIGH CONC* PER PHARMACY IV NR ×10 (20:00)
[2021-02-18] MEDS ORDERED: EPOETIN ALFA-EPBX 4,000 UNIT/ML VIAL SC ONE (21:00)
[2021-02-18] MEDS: fentaNYL Drip 2500mCg/250mlNS 250 ML IV SCH (21:41)
[2021-02-18] MEDS ORDERED: NOREPINEPHRINE BITARTRATE 2 ML IV ONE (23:13)
[2021-02-18] MEDS ORDERED: NOREPINEPHRINE 8 MG/250ML KIT 250 ML IV ONE (23:25)
[2021-02-19] VITALS (108 sets, daily range): BP systolic 83–138; BP diastolic 41–68
[2021-02-19] MEDS: MIDAZOLAM DRIP 50 mg/50mL 50 ML IV SCH ×2 (02:00→13:10)
[2021-02-19] MEDS: metroNIDAZOLE 500MG/100ML 100 ML IV SCH ×3 (04:15→22:39)
[2021-02-19 05:48] LABS: Basophils # (auto) 0.1 10 ^3/uL (0-0.2); Basophils % (auto) 0.8 % (0.0-2.0); Eosinophils # (auto) 0.1 10 ^3/uL (0-0.8); Eosinophils % (auto) 0.7 % (0.0-7.0); Hematocrit 27.6 % (41.0-53.0); Hemoglobin 9.4 g/dL (13.5-17.5); Lymphocytes # (auto) 0.6 10 ^3/uL (0.4-5.4); Lymphocytes % (auto) 7.5 % (10.0-50.0); Mean Corpuscular Hemoglobin 27.3 pg (28.0-32.0); Mean Corpuscular Hgb Conc. 33.9 g/dL (32.0-36.0); Mean Corpuscular Volume 80.4 fL (80.0-100.0); Monocytes # (auto) 0.2 10 ^3/uL (0-1.3); Monocytes % (auto) 2.3 % (0.0-12.0); Neutrophils # (auto) 7.2 10 ^3/uL (1.6-8.6); Neutrophils % (auto) 88.7 % (37.0-80.0); Nucleated Red Blood Cells % 1.2 %; Red Blood Cells 3.43 10^6/uL (4.5-5.90); White Blood Cell 8.1 10^3/uL (4.4-10.8)
[2021-02-19 05:50] LABS: Red Cell Distribution Width 20.2 % (11.8-14.3)
[2021-02-19 05:52] LABS: Albumin 1.4 g/dL (3.4-5.0); BUN/Creatinine Ratio 39.3; Bilirubin, Total 0.7 mg/dL (0.2-1.0); Calcium 7.6 mg/dL (8.5-10.1); Magnesium 2.4 mg/dL (1.6-2.6); Phosphorus 3.7 mg/dL (2.5-4.90); Pre Albumin 15.9 mg/dL (20.0-40.0); Total Protein 4.1 g/dL (6.4-8.2)
[2021-02-19] MEDS: InsuLIN REG 1unit/0.01ml Soln (100units/ml) SC SCH ×4 (06:00→18:01)
[2021-02-19] MEDS: ACCU-CHEK COMFORT CURVE STRIP VI SCH ×4 (06:00→18:00)
[2021-02-19] MEDS: BUDESONIDE (INHALATION) 0.5 MG/2 ML NEB NEB SCH ×2 (06:21→21:02)
[2021-02-19] MEDS: IPRATROPIUM BROM 0.5 MG/2.5ML INH SOL NEB SCH ×3 (06:21→21:00)
[2021-02-19] MEDS: ALBUTEROL SULF 2.5 MG/0.5ML(0.5%) NEB SOLN NEB SCH ×3 (06:21→21:01)
[2021-02-19] MEDS: VANCOMYCIN HCL 125MG/5ML ORAL SOL PO SCH ×4 (06:48→22:41)
[2021-02-19] MEDS: ALBUMIN 25% 100 ML IV SCH ×2 (07:27→15:28)
[2021-02-19] MEDS: PROPOFOL 100 ML IV SCH (09:41)
[2021-02-19] MEDS: SODIUM CHLOR 0.9% PF (SALINE LOCK) 10ML VIAL/SYR IV SCH ×2 (10:46→22:41)
[2021-02-19] MEDS: FAMOTIDINE (10MG/ML) 2ML VL IV SCH (11:13)
[2021-02-19] MEDS: PHENYLEPHRINE INJ 80 MG in SODIUM CHL 0.9% 242 ML IV SCH ×2 (12:30→22:40)
[2021-02-19] MEDS: fentaNYL Drip 2500mCg/250mlNS 250 ML IV SCH ×2 (14:30→22:30)
[2021-02-19] MEDS: VASOPRESSIN 50 UNITS in D5W 5% 247.5 ML IV SCH (14:30)
[2021-02-19] MEDS ORDERED: BUMETANIDE 2.5mg/10ml (0.25 mg/ml) INJ IV ONE (15:15)
[2021-02-19] MEDS: NOREPINEPHRINE BITARTRATE 16 MG in SODIUM CHL 0.9% 234 ML IV SCH (16:15)
[2021-02-19] MEDS: BUMETANIDE INJECTION 12.5 MG in GIVE UN-DILUTED 0 ML IV SCH (17:16)
[2021-02-19] MEDS: Glucerna 1.2 Cal 1Liter BOTTLE GT SCH (17:30)
[2021-02-19] MEDS: TPN*HIGH CONC* PER PHARMACY IV NR ×9 (20:00)
[2021-02-20] VITALS (98 sets, daily range): BP systolic 92–148; BP diastolic 36–71
[2021-02-20] MEDS: ALBUMIN 25% 100 ML IV SCH ×2 (00:55→07:27)
[2021-02-20] MEDS: metroNIDAZOLE 500MG/100ML 100 ML IV SCH ×3 (04:00→20:00)
[2021-02-20 05:46] LABS: Albumin 2.1 g/dL (3.4-5.0); Calcium 7.8 mg/dL (8.5-10.1); Magnesium 2.1 mg/dL (1.6-2.6); Potassium 3.8 mmol/L (3.5-5.1)
[2021-02-20 05:51] LABS: BUN/Creatinine Ratio 39.3; Bilirubin, Total 0.6 mg/dL (0.2-1.0); Phosphorus 3.6 mg/dL (2.5-4.90); Total Protein 4.2 g/dL (6.4-8.2)
[2021-02-20] MEDS: ACCU-CHEK COMFORT CURVE STRIP VI SCH ×4 (06:00→18:00)
[2021-02-20] MEDS: VANCOMYCIN HCL 125MG/5ML ORAL SOL PO SCH ×3 (06:20→18:00)
[2021-02-20] MEDS: InsuLIN REG 1unit/0.01ml Soln (100units/ml) SC SCH ×4 (06:29→18:00)
[2021-02-20] MEDS: SODIUM CHLOR 0.9% PF (SALINE LOCK) 10ML VIAL/SYR IV SCH (10:00)
[2021-02-20] MEDS: FAMOTIDINE (10MG/ML) 2ML VL IV SCH (10:13)
[2021-02-20] MEDS: fentaNYL Drip 2500mCg/250mlNS 250 ML IV SCH (10:36)
[2021-02-20] MEDS: PHENYLEPHRINE INJ 80 MG in SODIUM CHL 0.9% 242 ML IV SCH (14:15)
[2021-02-20] MEDS: VASOPRESSIN 50 UNITS in D5W 5% 247.5 ML IV SCH (14:30)
[2021-02-20] MEDS: MIDAZOLAM DRIP 50 mg/50mL 50 ML IV SCH (15:12)
[2021-02-20] MEDS: NOREPINEPHRINE BITARTRATE 16 MG in SODIUM CHL 0.9% 234 ML IV SCH (16:15)
[2021-02-20] MEDS: BUDESONIDE (INHALATION) 0.5 MG/2 ML NEB NEB SCH (18:48)
[2021-02-20] MEDS: ALBUTEROL SULF 2.5 MG/0.5ML(0.5%) NEB SOLN NEB SCH (18:48)
[2021-02-20] MEDS: IPRATROPIUM BROM 0.5 MG/2.5ML INH SOL NEB SCH (18:48)
[2021-02-20] MEDS: TPN*HIGH CONC* PER PHARMACY IV NR ×9 (19:54)
[2021-02-20] MEDS ORDERED: TPN*HIGH CONC* PER PHARMACY IV NR ×11 (20:00)
[2021-02-21] VITALS (105 sets, daily range): BP systolic 88–143; BP diastolic 40–66
[2021-02-21] MEDS: SODIUM CHLOR 0.9% PF (SALINE LOCK) 10ML VIAL/SYR IV SCH ×3 (00:09→21:41)
[2021-02-21] MEDS: ACCU-CHEK COMFORT CURVE STRIP VI SCH ×4 (00:10→18:37)
[2021-02-21] MEDS: VANCOMYCIN HCL 125MG/5ML ORAL SOL PO SCH ×5 (00:10→21:41)
[2021-02-21] MEDS: BUMETANIDE INJECTION 12.5 MG in GIVE UN-DILUTED 0 ML IV SCH (00:14)
[2021-02-21] MEDS: metroNIDAZOLE 500MG/100ML 100 ML IV SCH ×3 (05:15→21:40)
[2021-02-21] MEDS: ALBUTEROL SULF 2.5 MG/0.5ML(0.5%) NEB SOLN NEB SCH ×4 (05:16→22:26)
[2021-02-21] MEDS: MIDAZOLAM DRIP 50 mg/50mL 50 ML IV SCH ×2 (05:24→08:49)
[2021-02-21 05:26] LABS: Basophils # (auto) 0 10 ^3/uL (0-0.2); Eosinophils # (auto) 0.2 10 ^3/uL (0-0.8); Lymphocytes # (auto) 0.4 10 ^3/uL (0.4-5.4); Monocytes # (auto) 0.1 10 ^3/uL (0-1.3)
[2021-02-21 05:30] LABS: Basophils % (auto) 0.8 % (0.0-2.0); Eosinophils % (auto) 3.4 % (0.0-7.0); Hematocrit 19.1 % (41.0-53.0); Lymphocytes % (auto) 6.8 % (10.0-50.0); Mean Corpuscular Hemoglobin 28.7 pg (28.0-32.0); Mean Corpuscular Hgb Conc. 35.3 g/dL (32.0-36.0); Mean Corpuscular Volume 81.4 fL (80.0-100.0); Neutrophils # (auto) 4.6 10 ^3/uL (1.6-8.6); Nucleated Red Blood Cells % 0.9 %; Red Blood Cells 2.34 10^6/uL (4.5-5.90); White Blood Cell 5.3 10^3/uL (4.4-10.8)
[2021-02-21 05:33] LABS: Red Cell Distribution Width 21.1 % (11.8-14.3)
[2021-02-21 05:35] LABS: Hemoglobin 6.7 g/dL (13.5-17.5)
[2021-02-21 05:43] LABS: Potassium 3.8 mmol/L (3.5-5.1)
[2021-02-21 05:51] LABS: Albumin 1.9 g/dL (3.4-5.0); BUN/Creatinine Ratio 42.7; Bilirubin, Total 0.7 mg/dL (0.2-1.0); Calcium 7.8 mg/dL (8.5-10.1); Phosphorus 3.1 mg/dL (2.5-4.90); Total Protein 3.9 g/dL (6.4-8.2)
[2021-02-21] MEDS: InsuLIN REG 1unit/0.01ml Soln (100units/ml) SC SCH ×4 (06:00→18:37)
[2021-02-21] MEDS: BUDESONIDE (INHALATION) 0.5 MG/2 ML NEB NEB SCH ×2 (06:38→22:26)
[2021-02-21] MEDS: IPRATROPIUM BROM 0.5 MG/2.5ML INH SOL NEB SCH ×3 (06:38→22:26)
[2021-02-21] MEDS: fentaNYL Drip 2500mCg/250mlNS 250 ML IV SCH (07:11)
[2021-02-21] MEDS: PHENYLEPHRINE INJ 80 MG in SODIUM CHL 0.9% 242 ML IV SCH (08:48)
[2021-02-21] MEDS: FAMOTIDINE (10MG/ML) 2ML VL IV SCH (09:45)
[2021-02-21 10:42] LABS: Hematocrit 20.4 % (41.0-53.0)
[2021-02-21 10:50] LABS: Hemoglobin 6.8 g/dL (13.5-17.5)
[2021-02-21] MEDS: VASOPRESSIN 50 UNITS in D5W 5% 247.5 ML IV SCH (14:30)
[2021-02-21] MEDS: NOREPINEPHRINE BITARTRATE 16 MG in SODIUM CHL 0.9% 234 ML IV SCH (16:15)
[2021-02-21] MEDS ORDERED: TPN*HIGH CONC* PER PHARMACY IV NR ×9 (20:00)
[2021-02-21] MEDS ORDERED: EPOETIN ALFA-EPBX 4,000 UNIT/ML VIAL SC ONE (21:00)
[2021-02-21 22:25] LABS: Hematocrit 18.8 % (41.0-53.0)
[2021-02-21 22:43] LABS: Hemoglobin 6.4 g/dL (13.5-17.5)
[2021-02-22] VITALS (110 sets, daily range): BP systolic 77–150; BP diastolic 26–80
[2021-02-22] MEDS: metroNIDAZOLE 500MG/100ML 100 ML IV SCH ×3 (04:08→21:14)
[2021-02-22 05:24] LABS: Basophils # (auto) 0 10 ^3/uL (0-0.2); Basophils % (auto) 0.4 % (0.0-2.0); Eosinophils # (auto) 0.1 10 ^3/uL (0-0.8); Eosinophils % (auto) 1.1 % (0.0-7.0); Hematocrit 29.4 % (41.0-53.0); Hemoglobin 9.9 g/dL (13.5-17.5); Lymphocytes # (auto) 0.5 10 ^3/uL (0.4-5.4); Mean Corpuscular Hemoglobin 28.3 pg (28.0-32.0); Mean Corpuscular Hgb Conc. 33.8 g/dL (32.0-36.0); Mean Corpuscular Volume 83.8 fL (80.0-100.0); Monocytes # (auto) 0.2 10 ^3/uL (0-1.3); Monocytes % (auto) 2.2 % (0.0-12.0); Neutrophils # (auto) 6.5 10 ^3/uL (1.6-8.6); Neutrophils % (auto) 89.3 % (37.0-80.0); Nucleated Red Blood Cells % 2.5 %; Red Blood Cells 3.51 10^6/uL (4.5-5.90); Red Cell Distribution Width 19.5 % (11.8-14.3); White Blood Cell 7.3 10^3/uL (4.4-10.8)
[2021-02-22 05:40] LABS: Potassium 3.7 mmol/L (3.5-5.1)
[2021-02-22 05:47] LABS: Albumin 1.7 g/dL (3.4-5.0); BUN/Creatinine Ratio 38.5; Bilirubin, Total 0.6 mg/dL (0.2-1.0); Calcium 7.5 mg/dL (8.5-10.1); Total Protein 4.2 g/dL (6.4-8.2)
[2021-02-22] MEDS: InsuLIN REG 1unit/0.01ml Soln (100units/ml) SC SCH ×4 (06:00→18:36)
[2021-02-22] MEDS: ACCU-CHEK COMFORT CURVE STRIP VI SCH ×4 (06:00→18:36)
[2021-02-22] MEDS: VANCOMYCIN HCL 125MG/5ML ORAL SOL PO SCH ×4 (06:00→22:55)
[2021-02-22] MEDS: IPRATROPIUM BROM 0.5 MG/2.5ML INH SOL NEB SCH ×3 (06:19→22:28)
[2021-02-22] MEDS: ALBUTEROL SULF 2.5 MG/0.5ML(0.5%) NEB SOLN NEB SCH ×3 (06:19→22:28)
[2021-02-22] MEDS: BUDESONIDE (INHALATION) 0.5 MG/2 ML NEB NEB SCH ×2 (06:20→22:28)
[2021-02-22] MEDS: fentaNYL Drip 2500mCg/250mlNS 250 ML IV SCH ×2 (08:12→18:37)
[2021-02-22] MEDS: PHENYLEPHRINE INJ 80 MG in SODIUM CHL 0.9% 242 ML IV SCH ×2 (08:45→18:37)
[2021-02-22] MEDS: MIDAZOLAM DRIP 50 mg/50mL 50 ML IV SCH ×4 (09:06→20:30)
[2021-02-22] MEDS: SODIUM CHLOR 0.9% PF (SALINE LOCK) 10ML VIAL/SYR IV SCH ×2 (09:07→22:55)
[2021-02-22 09:58] LABS: INR 1.23 (0.9-1.15); Partial Thromboplastin Time 41.1 sec (23.0-31.2)
[2021-02-22] MEDS: FAMOTIDINE (10MG/ML) 2ML VL IV SCH (10:35)
[2021-02-22] MEDS: PROPOFOL 100 ML IV SCH ×2 (11:19→16:54)
[2021-02-22] MEDS: VASOPRESSIN 50 UNITS in D5W 5% 247.5 ML IV SCH ×2 (14:30→18:58)
[2021-02-22] MEDS: NOREPINEPHRINE BITARTRATE 16 MG in SODIUM CHL 0.9% 234 ML IV SCH (16:15)
[2021-02-22] MEDS ORDERED: TPN*HIGH CONC* PER PHARMACY IV NR ×10 (20:00)
[2021-02-23] VITALS (103 sets, daily range): BP systolic 63–143; BP diastolic 22–83
[2021-02-23] MEDS ORDERED: PHENYLEPHRINE HCL 10 MG/ML VL ONE (01:25)
[2021-02-23] MEDS ORDERED: PHENYLEPHRINE IV 250 ML IV ONE (01:29)
[2021-02-23] MEDS: PHENYLEPHRINE INJ 80 MG in SODIUM CHL 0.9% 242 ML IV SCH ×3 (01:45→16:22)
[2021-02-23] MEDS: MIDAZOLAM DRIP 50 mg/50mL 50 ML IV SCH ×7 (02:08→21:00)
[2021-02-23] MEDS: metroNIDAZOLE 500MG/100ML 100 ML IV SCH ×3 (05:49→21:14)
[2021-02-23] MEDS: VANCOMYCIN HCL 125MG/5ML ORAL SOL PO SCH ×4 (05:49→23:25)
[2021-02-23] MEDS: InsuLIN REG 1unit/0.01ml Soln (100units/ml) SC SCH ×4 (05:49→18:00)
[2021-02-23] MEDS: ACCU-CHEK COMFORT CURVE STRIP VI SCH ×4 (05:49→18:12)
[2021-02-23] MEDS: IPRATROPIUM BROM 0.5 MG/2.5ML INH SOL NEB SCH ×3 (06:52→23:08)
[2021-02-23] MEDS: ALBUTEROL SULF 2.5 MG/0.5ML(0.5%) NEB SOLN NEB SCH ×3 (06:52→23:08)
[2021-02-23] MEDS: BUDESONIDE (INHALATION) 0.5 MG/2 ML NEB NEB SCH ×2 (06:52→23:08)
[2021-02-23] MEDS: fentaNYL Drip 2500mCg/250mlNS 250 ML IV SCH ×2 (06:55→18:41)
[2021-02-23 08:49] LABS: Hematocrit 23.5 % (41.0-53.0); Hemoglobin 8.2 g/dL (13.5-17.5); Mean Corpuscular Hemoglobin 30.2 pg (28.0-32.0); Mean Corpuscular Hgb Conc. 34.9 g/dL (32.0-36.0); Mean Corpuscular Volume 86.6 fL (80.0-100.0); Red Blood Cells 2.71 10^6/uL (4.5-5.90); Red Cell Distribution Width 19.8 % (11.8-14.3); White Blood Cell 6.9 10^3/uL (4.4-10.8)
[2021-02-23 09:00] LABS: Basophils % (manual) 0 (0.0-2.0); Blast Cells 0; Eosinophils % (manual) 0 (0-7); Metamyelocytes % 0; Myelocytes % 0; Promyelocytes % 0; Reactive Lymphocytes 0
[2021-02-23 09:13] LABS: Albumin 1.1 g/dL (3.4-5.0); Magnesium 1.7 mg/dL (1.6-2.6); Potassium 3.4 mmol/L (3.5-5.1)
[2021-02-23 09:17] LABS: Bilirubin, Total 0.7 mg/dL (0.2-1.0); Phosphorus 2.5 mg/dL (2.5-4.90)
[2021-02-23 09:21] LABS: Band Neutrophils % (manual) 17; Lymphocytes % (manual) 6 (10.0-50.0); Monocytes % (manual) 1 (0-12)
[2021-02-23 09:29] LABS: Total Protein 3.2 g/dL (6.4-8.2)
[2021-02-23 09:36] LABS: BUN/Creatinine Ratio 42.2
[2021-02-23] MEDS: SODIUM CHLOR 0.9% PF (SALINE LOCK) 10ML VIAL/SYR IV SCH ×2 (09:40→23:25)
[2021-02-23] MEDS: FAMOTIDINE (10MG/ML) 2ML VL IV SCH (09:40)
[2021-02-23] MEDS: VASOPRESSIN 50 UNITS in D5W 5% 247.5 ML IV SCH (09:41)
[2021-02-23] MEDS: PROPOFOL 100 ML IV SCH ×2 (09:41→16:22)
[2021-02-23] MEDS ORDERED: SODIUM BICARBONATE 8.4 % INJ 50ML VIAL IV ONE (10:00)
[2021-02-23] MEDS ORDERED: POTASSIUM CHL 20MEQ/100ML 100 ML IV ONE (10:30)
[2021-02-23] MEDS ORDERED: BUMETANIDE 2.5mg/10ml (0.25 mg/ml) INJ IV ONE (11:00)
[2021-02-23] MEDS ORDERED: CALCIUM GLUC 1,000mg/50ml-NS 50 ML IV ONE (12:00)
[2021-02-23] MEDS: ALBUMIN 25% 100 ML IV SCH ×3 (13:08→15:01)
[2021-02-23] MEDS: NOREPINEPHRINE BITARTRATE 16 MG in SODIUM CHL 0.9% 234 ML IV SCH (16:15)
[2021-02-23] MEDS: BUMETANIDE 2.5mg/10ml (0.25 mg/ml) INJ IV SCH (18:29)
[2021-02-23] MEDS ORDERED: TPN*HIGH CONC* PER PHARMACY IV NR ×10 (20:00)
[2021-02-24] VITALS (98 sets, daily range): BP systolic 83–114; BP diastolic 29–56
[2021-02-24] MEDS: MIDAZOLAM DRIP 50 mg/50mL 50 ML IV SCH ×4 (00:30→18:31)
[2021-02-24] MEDS ORDERED: ALBUMIN 25% 100 ML IV ONE ×2 (02:49→03:00)
[2021-02-24] MEDS: PROPOFOL 100 ML IV SCH ×2 (03:20→17:10)
[2021-02-24] MEDS: metroNIDAZOLE 500MG/100ML 100 ML IV SCH ×3 (04:00→20:16)
[2021-02-24] MEDS: PHENYLEPHRINE INJ 80 MG in SODIUM CHL 0.9% 242 ML IV SCH ×2 (06:00→14:17)
[2021-02-24] MEDS: VANCOMYCIN HCL 125MG/5ML ORAL SOL PO SCH ×4 (06:00→22:00)
[2021-02-24] MEDS: BUMETANIDE 2.5mg/10ml (0.25 mg/ml) INJ IV SCH ×2 (06:00→18:30)
[2021-02-24] MEDS: InsuLIN REG 1unit/0.01ml Soln (100units/ml) SC SCH ×4 (06:00→18:30)
[2021-02-24] MEDS: ACCU-CHEK COMFORT CURVE STRIP VI SCH ×4 (06:00→18:34)
[2021-02-24] MEDS: ALBUTEROL SULF 2.5 MG/0.5ML(0.5%) NEB SOLN NEB SCH ×3 (07:00→19:00)
[2021-02-24] MEDS: BUDESONIDE (INHALATION) 0.5 MG/2 ML NEB NEB SCH ×2 (07:00→19:01)
[2021-02-24] MEDS: IPRATROPIUM BROM 0.5 MG/2.5ML INH SOL NEB SCH ×3 (07:00→19:00)
[2021-02-24] MEDS: fentaNYL Drip 2500mCg/250mlNS 250 ML IV SCH ×2 (07:56→20:16)
[2021-02-24] MEDS: NOREPINEPHRINE BITARTRATE 16 MG in SODIUM CHL 0.9% 234 ML IV SCH (08:11)
[2021-02-24] MEDS: VASOPRESSIN 50 UNITS in D5W 5% 247.5 ML IV SCH ×2 (09:23→21:30)
[2021-02-24] MEDS: SODIUM CHLOR 0.9% PF (SALINE LOCK) 10ML VIAL/SYR IV SCH ×2 (10:25→23:32)
[2021-02-24] MEDS: FAMOTIDINE (10MG/ML) 2ML VL IV SCH (10:25)
[2021-02-24 11:05] LABS: Hemoglobin 7.6 g/dL (13.5-17.5); Mean Corpuscular Hemoglobin 28.6 pg (28.0-32.0); Mean Corpuscular Hgb Conc. 32.3 g/dL (32.0-36.0); Mean Corpuscular Volume 88.6 fL (80.0-100.0); White Blood Cell 5.9 10^3/uL (4.4-10.8)
[2021-02-24 11:07] LABS: Hematocrit 23.5 % (41.0-53.0); Red Blood Cells 2.65 10^6/uL (4.5-5.90)
[2021-02-24 11:15] LABS: Red Cell Distribution Width 20.6 % (11.8-14.3)
[2021-02-24 11:16] LABS: Basophils % (manual) 0 (0.0-2.0); Blast Cells 0; Metamyelocytes % 0; Promyelocytes % 0; Reactive Lymphocytes 0
[2021-02-24 11:56] LABS: Alanine Aminotransferase 28 U/L (16-61)
[2021-02-24 12:14] LABS: Albumin 2.3 g/dL (3.4-5.0)
[2021-02-24 12:15] LABS: Alkaline Phosphatase 211 U/L (45-117); Aspartate Aminotransferase 64 U/L (15-37); Blood Urea Nitrogen 65 mg/dL (7-18); Calcium 6.9 mg/dL (8.5-10.1)
[2021-02-24 12:17] LABS: Carbon Dioxide 24 mmol/L (21-32); Chloride 100 mmol/L (98-107); GFR African American 51 mL/min; GFR Non-African American 42 mL/min
[2021-02-24 12:18] LABS: Anion Gap 10 (5-15); Bilirubin, Total 0.8 mg/dL (0.2-1.0); Phosphorus 3.1 mg/dL (2.5-4.90); Sodium 134 mmol/L (136-145); Total Protein 4.6 g/dL (6.4-8.2)
[2021-02-24 12:20] LABS: Glucose 401 mg/dL (74-106)
[2021-02-24 12:48] LABS: Band Neutrophils % (manual) 14; Eosinophils % (manual) 2 (0-7); Lymphocytes % (manual) 13 (10.0-50.0); Monocytes % (manual) 3 (0-12); Myelocytes % 1
[2021-02-24] MEDS ORDERED: SODIUM BICARBONATE 8.4% INJ 50ML SYRINGE ONE (13:07)
[2021-02-24] MEDS ORDERED: SODIUM BICARBONATE 8.4 % INJ 50ML VIAL IV ONE (13:15)
[2021-02-24 17:18] LABS: Albumin 1.7 g/dL (3.4-5.0)
[2021-02-24 17:27] LABS: Bilirubin, Total 0.7 mg/dL (0.2-1.0); Total Protein 3.5 g/dL (6.4-8.2)
[2021-02-24 19:08] LABS: Calcium 5.7 mg/dL (8.5-10.1)
[2021-02-24] MEDS: TPN*HIGH CONC* PER PHARMACY IV NR ×11 (20:12)
[2021-02-24] MEDS ORDERED: POTASSIUM CHL 20MEQ/100ML 100 ML IV ONE (20:30)
[2021-02-24] MEDS ORDERED: CALCIUM GLUC 1,000mg/50ml-NS 50 ML IV ONE (20:30)
[2021-02-24] MEDS ORDERED: EPOETIN ALFA-EPBX 4,000 UNIT/ML VIAL SC ONE (21:00)
[2021-02-25] VITALS (98 sets, daily range): BP systolic 10–144; BP diastolic 23–63
[2021-02-25] MEDS: ACCU-CHEK COMFORT CURVE STRIP VI SCH ×4 (00:30→18:12)
[2021-02-25] MEDS: InsuLIN REG 1unit/0.01ml Soln (100units/ml) SC SCH ×3 (00:30→18:00)
[2021-02-25] MEDS: PROPOFOL 100 ML IV SCH (01:07)
[2021-02-25] MEDS: MIDAZOLAM DRIP 50 mg/50mL 50 ML IV SCH ×3 (01:40→14:02)
[2021-02-25] MEDS: PHENYLEPHRINE INJ 80 MG in SODIUM CHL 0.9% 242 ML IV SCH ×2 (03:13→10:36)
[2021-02-25] MEDS: metroNIDAZOLE 500MG/100ML 100 ML IV SCH ×3 (03:59→19:41)
[2021-02-25] MEDS ORDERED: PHENYLEPHRINE IV 250 ML IV ONE (04:07)
[2021-02-25] MEDS: VANCOMYCIN HCL 125MG/5ML ORAL SOL PO SCH ×4 (05:24→21:15)
[2021-02-25] MEDS: BUMETANIDE 2.5mg/10ml (0.25 mg/ml) INJ IV SCH ×2 (05:24→18:00)
[2021-02-25 05:41] LABS: Basophils # (auto) 0.1 10 ^3/uL (0-0.2); Lymphocytes # (auto) 0.8 10 ^3/uL (0.4-5.4); Mean Corpuscular Hgb Conc. 32.4 g/dL (32.0-36.0); Red Cell Distribution Width 19.9 % (11.8-14.3); White Blood Cell 7.2 10^3/uL (4.4-10.8)
[2021-02-25 05:43] LABS: Eosinophils # (auto) 0 10 ^3/uL (0-0.8); Eosinophils % (auto) 0.6 % (0.0-7.0); Hematocrit 25.1 % (41.0-53.0); Hemoglobin 8.1 g/dL (13.5-17.5); Lymphocytes % (auto) 10.6 % (10.0-50.0); Mean Corpuscular Hemoglobin 27.8 pg (28.0-32.0); Mean Corpuscular Volume 85.9 fL (80.0-100.0); Monocytes # (auto) 0.2 10 ^3/uL (0-1.3); Monocytes % (auto) 2.1 % (0.0-12.0); Neutrophils # (auto) 6.2 10 ^3/uL (1.6-8.6); Neutrophils % (auto) 85.7 % (37.0-80.0); Red Blood Cells 2.92 10^6/uL (4.5-5.90)
[2021-02-25 05:44] LABS: Nucleated Red Blood Cells % 3.6 %
[2021-02-25 05:48] LABS: Albumin 2.1 g/dL (3.4-5.0); Calcium 7.7 mg/dL (8.5-10.1); Potassium 4.5 mmol/L (3.5-5.1)
[2021-02-25 05:54] LABS: BUN/Creatinine Ratio 45.7; Bilirubin, Total 0.9 mg/dL (0.2-1.0); Phosphorus 3.2 mg/dL (2.5-4.90); Pre Albumin 9.1 mg/dL (20.0-40.0); Total Protein 4.7 g/dL (6.4-8.2)
[2021-02-25] MEDS: ALBUTEROL SULF 2.5 MG/0.5ML(0.5%) NEB SOLN NEB SCH ×4 (06:06→22:38)
[2021-02-25] MEDS: BUDESONIDE (INHALATION) 0.5 MG/2 ML NEB NEB SCH ×2 (06:06→22:38)
[2021-02-25] MEDS: IPRATROPIUM BROM 0.5 MG/2.5ML INH SOL NEB SCH ×3 (06:06→22:38)
[2021-02-25] MEDS: ERGOCALCIFEROL 50,000 UNIT(1.25MG) CAP PO SCH (08:00)
[2021-02-25] MEDS: FAMOTIDINE (10MG/ML) 2ML VL IV SCH (10:33)
[2021-02-25] MEDS: SODIUM CHLOR 0.9% PF (SALINE LOCK) 10ML VIAL/SYR IV SCH ×2 (10:34→21:15)
[2021-02-25] MEDS ORDERED: ENOXAPARIN SOD 30 MG/0.3 ML SYRINGE SC ONE (11:30)
[2021-02-25] MEDS: NOREPINEPHRINE BITARTRATE 16 MG in SODIUM CHL 0.9% 234 ML IV SCH (14:05)
[2021-02-25] MEDS: NOREPINEPHRINE BITARTRATE 32 MG in SODIUM CHL 0.9% 218 ML IV SCH (14:45)
[2021-02-25] MEDS: fentaNYL Drip 2500mCg/250mlNS 250 ML IV SCH (15:23)
[2021-02-25] MEDS: TPN*HIGH CONC* PER PHARMACY IV NR ×11 (19:38)
[2021-02-25] MEDS ORDERED: TPN*HIGH CONC* PER PHARMACY IV NR ×12 (20:00)
[2021-02-25] MEDS ORDERED: EPOETIN ALFA-EPBX 4,000 UNIT/ML VIAL SC ONE (21:00)
[2021-02-25] MEDS: EPINEPHrine HCL 250 ML IV SCH (23:00)
[2021-02-25] MEDS: DOPamine 1600MCG/ML D5W 250 ML IV SCH (23:00)
[2021-02-26] VITALS (92 sets, daily range): BP systolic 54–180; BP diastolic 13–53
[2021-02-26] MEDS: ACCU-CHEK COMFORT CURVE STRIP VI SCH ×4 (00:14→18:06)
[2021-02-26] MEDS: InsuLIN REG 1unit/0.01ml Soln (100units/ml) SC SCH ×5 (00:38→18:00)
[2021-02-26] MEDS: EPINEPHrine HCL 250 ML IV SCH ×4 (01:21→22:20)
[2021-02-26 03:01] LABS: Hematocrit 22.8 % (41.0-53.0); Hemoglobin 7.4 g/dL (13.5-17.5)
[2021-02-26 03:03] LABS: Mean Corpuscular Hemoglobin 28.8 pg (28.0-32.0); Mean Corpuscular Hgb Conc. 32.6 g/dL (32.0-36.0); Mean Corpuscular Volume 88.3 fL (80.0-100.0); Red Blood Cells 2.58 10^6/uL (4.5-5.90); White Blood Cell 9.2 10^3/uL (4.4-10.8)
[2021-02-26 03:04] LABS: Red Cell Distribution Width 20.9 % (11.8-14.3)
[2021-02-26 03:07] LABS: Basophils % (manual) 0 (0.0-2.0); Blast Cells 0; Eosinophils % (manual) 0 (0-7); Metamyelocytes % 0; Myelocytes % 0; Promyelocytes % 0; Reactive Lymphocytes 0
[2021-02-26 03:31] LABS: Albumin 1.5 g/dL (3.4-5.0); BUN/Creatinine Ratio 41.8; Calcium 7.3 mg/dL (8.5-10.1); Magnesium 1.9 mg/dL (1.6-2.6); Potassium 4.6 mmol/L (3.5-5.1)
[2021-02-26 03:33] LABS: Bilirubin, Total 1.4 mg/dL (0.2-1.0); Phosphorus 3.1 mg/dL (2.5-4.90); Total Protein 3.9 g/dL (6.4-8.2)
[2021-02-26] MEDS ORDERED: SODIUM BICARBONATE 8.4 % INJ 50ML VIAL IV ONE ×2 (03:45→10:00)
[2021-02-26] MEDS ORDERED: SODIUM BICARBONATE 8.4% INJ 50ML SYRINGE ONE (03:47)
[2021-02-26 04:07] LABS: Band Neutrophils % (manual) 24; Lymphocytes % (manual) 19 (10.0-50.0); Monocytes % (manual) 3 (0-12)
[2021-02-26] MEDS: metroNIDAZOLE 500MG/100ML 100 ML IV SCH ×3 (05:11→22:55)
[2021-02-26] MEDS: BUMETANIDE 2.5mg/10ml (0.25 mg/ml) INJ IV SCH (06:00)
[2021-02-26] MEDS: VANCOMYCIN HCL 125MG/5ML ORAL SOL PO SCH ×4 (06:41→22:54)
[2021-02-26] MEDS: BUDESONIDE (INHALATION) 0.5 MG/2 ML NEB NEB SCH ×2 (06:56→22:26)
[2021-02-26] MEDS: PROPOFOL 100 ML IV SCH (08:01)
[2021-02-26] MEDS: PHENYLEPHRINE INJ 80 MG in SODIUM CHL 0.9% 242 ML IV SCH ×3 (08:05→22:19)
[2021-02-26] MEDS: SODIUM CHLOR 0.9% PF (SALINE LOCK) 10ML VIAL/SYR IV SCH ×2 (08:12→22:55)
[2021-02-26] MEDS: FAMOTIDINE (10MG/ML) 2ML VL IV SCH (08:12)
[2021-02-26] MEDS: DOPamine 1600MCG/ML D5W 250 ML IV SCH ×2 (09:12→22:16)
[2021-02-26] MEDS ORDERED: ENOXAPARIN SOD 30 MG/0.3 ML SYRINGE SC SCH (10:00)
[2021-02-26] MEDS: ALBUTEROL SULF 2.5 MG/0.5ML(0.5%) NEB SOLN NEB SCH ×2 (14:15→22:26)
[2021-02-26] MEDS: IPRATROPIUM BROM 0.5 MG/2.5ML INH SOL NEB SCH ×2 (14:15→22:26)
[2021-02-26] MEDS: VASOPRESSIN 50 UNITS in D5W 5% 247.5 ML IV SCH ×2 (14:26→15:40)
[2021-02-26] MEDS: NOREPINEPHRINE BITARTRATE 32 MG in SODIUM CHL 0.9% 218 ML IV SCH (14:26)
[2021-02-26] MEDS ORDERED: metOLazone 5 MG TAB PO SCH (15:00)
[2021-02-26] MEDS: BUMETANIDE INJECTION 12.5 MG in GIVE UN-DILUTED 0 ML IV SCH ×2 (16:07→22:17)
[2021-02-26] MEDS ORDERED: TPN*HIGH CONC* PER PHARMACY IV NR ×8 (20:00)
[2021-02-26] MEDS: fentaNYL Drip 2500mCg/250mlNS 250 ML IV SCH (22:30)
[2021-02-27] VITALS (10 sets, daily range): BP systolic 82–150; BP diastolic 16–50
[2021-02-27] MEDS: ACCU-CHEK COMFORT CURVE STRIP VI SCH
[2021-02-27] MEDS: InsuLIN REG 1unit/0.01ml Soln (100units/ml) SC SCH
[2021-02-27] MEDS ORDERED: AMIODARONE HCL (50 MG/ ML) 3 ML VIAL IV ONE (03:19)
[2021-02-27] MEDS ORDERED: ATROPINE SULF 1 MG/10ml SYR IV ONE (03:19)
[2021-02-27] MEDS ORDERED: EPINEPHrine HCL 1 MG/10 ML SYRG IV ONE (03:19)
== END 2021-02-27 03:20 | DRG 207 ==
LOC: EDBD 22:37 → ER 22:40 → TELE 01-13 05:08 → TELE-EAST 01-13 10:46 → ICU CENTRL 01-13 12:50 → DOU IN ICU 01-13 18:51
PROVIDERS: ADMIT Nurse Practitioner; ATTEND Internal Medicine Pulmonary Disease
PROC: 5A09357 Assistance with Respiratory Ventilation, Less than 24 Consecutive Hours, Continuous Positive Airway Pressure (ICD-10-PCS; 2021-01-14)
PROC: 5A1955Z Respiratory Ventilation, Greater than 96 Consecutive Hours (ICD-10-PCS; principal; 2021-01-15)
PROC: B548ZZA Ultrasonography of Superior Vena Cava, Guidance (ICD-10-PCS; 2021-01-15)
PROC: 02HV33Z Insertion of Infusion Device into Superior Vena Cava, Percutaneous Approach (ICD-10-PCS; 2021-01-15)
PROC: 0BH17EZ Insertion of Endotracheal Airway into Trachea, Via Natural or Artificial Opening (ICD-10-PCS; 2021-01-15)
PROC: 5A09357 Assistance with Respiratory Ventilation, Less than 24 Consecutive Hours, Continuous Positive Airway Pressure (ICD-10-PCS; 2021-01-26)
PROC: 5A09357 Assistance with Respiratory Ventilation, Less than 24 Consecutive Hours, Continuous Positive Airway Pressure (ICD-10-PCS; 2021-01-26)
PROC: 5A09357 Assistance with Respiratory Ventilation, Less than 24 Consecutive Hours, Continuous Positive Airway Pressure (ICD-10-PCS; 2021-01-26)
PROC: 5A09357 Assistance with Respiratory Ventilation, Less than 24 Consecutive Hours, Continuous Positive Airway Pressure (ICD-10-PCS; 2021-01-26)
PROC: 5A09357 Assistance with Respiratory Ventilation, Less than 24 Consecutive Hours, Continuous Positive Airway Pressure (ICD-10-PCS; 2021-01-27)
PROC: 5A09357 Assistance with Respiratory Ventilation, Less than 24 Consecutive Hours, Continuous Positive Airway Pressure (ICD-10-PCS; 2021-01-27)
PROC: 5A09357 Assistance with Respiratory Ventilation, Less than 24 Consecutive Hours, Continuous Positive Airway Pressure (ICD-10-PCS; 2021-01-28)
PROC: 5A12012 Performance of Cardiac Output, Single, Manual (ICD-10-PCS; 2021-01-28)
PROC: 5A09357 Assistance with Respiratory Ventilation, Less than 24 Consecutive Hours, Continuous Positive Airway Pressure (ICD-10-PCS; 2021-01-29)
PROC: 5A09357 Assistance with Respiratory Ventilation, Less than 24 Consecutive Hours, Continuous Positive Airway Pressure (ICD-10-PCS; 2021-01-29)
PROC: 5A09357 Assistance with Respiratory Ventilation, Less than 24 Consecutive Hours, Continuous Positive Airway Pressure (ICD-10-PCS; 2021-01-29)
PROC: 5A09357 Assistance with Respiratory Ventilation, Less than 24 Consecutive Hours, Continuous Positive Airway Pressure (ICD-10-PCS; 2021-01-29)
PROC: 5A09357 Assistance with Respiratory Ventilation, Less than 24 Consecutive Hours, Continuous Positive Airway Pressure (ICD-10-PCS; 2021-01-29)
PROC: 5A09357 Assistance with Respiratory Ventilation, Less than 24 Consecutive Hours, Continuous Positive Airway Pressure (ICD-10-PCS; 2021-01-29)
PROC: 5A09357 Assistance with Respiratory Ventilation, Less than 24 Consecutive Hours, Continuous Positive Airway Pressure (ICD-10-PCS; 2021-01-29)
PROC: 0BH17EZ Insertion of Endotracheal Airway into Trachea, Via Natural or Artificial Opening (ICD-10-PCS; 2021-01-30)
PROC: 5A1955Z Respiratory Ventilation, Greater than 96 Consecutive Hours (ICD-10-PCS; 2021-01-30)
PROC: 0W9B30Z Drainage of Left Pleural Cavity with Drainage Device, Percutaneous Approach (ICD-10-PCS; 2021-02-01)
PROC: 5A1D70Z Performance of Urinary Filtration, Intermittent, Less than 6 Hours Per Day (ICD-10-PCS; 2021-02-05)
PROC: 30233N1 Transfusion of Nonautologous Red Blood Cells into Peripheral Vein, Percutaneous Approach (ICD-10-PCS; 2021-02-22)
DX: U07.1 COVID-19 (principal); J12.82 Pneumonia due to coronavirus disease 2019; J96.01 Acute respiratory failure with hypoxia; N17.0 Acute kidney failure with tubular necrosis; R65.21 Severe sepsis with septic shock; A41.9 Sepsis, unspecified organism; N39.0 Urinary tract infection, site not specified; D68.59 Other primary thrombophilia; E87.1 Hypo-osmolality and hyponatremia; R57.9 Shock, unspecified; J93.9 Pneumothorax, unspecified; E87.0 Hyperosmolality and hypernatremia; A04.72 Enterocolitis due to Clostridium difficile, not specified as recurrent; G93.40 Encephalopathy, unspecified; D62 Acute posthemorrhagic anemia; I10 Essential (primary) hypertension; E55.9 Vitamin D deficiency, unspecified; E11.9 Type 2 diabetes mellitus without complications; E66.01 Morbid (severe) obesity due to excess calories; E87.70 Fluid overload, unspecified; D69.6 Thrombocytopenia, unspecified; D63.8 Anemia in other chronic diseases classified elsewhere; Z99.2 Dependence on renal dialysis; Z79.899 Other long term (current) drug therapy; Z68.25 Body mass index [BMI] 25.0-25.9, adult
CPT/HCPCS: 36415; 36569; 36600; 71045; 71275; 76700; 76942; 80048; 80053; 80202; 81001; 82040; 82270; 82306; 82728; 82805; 82962; 83036; 83540; 83550; 83605; 83615; 83735; 83880; 84100; 84132; 84443; 84478; 84484; 85007; 85014; 85018; 85025; 85027; 85049; 85379; 85610; 85730; 86141; 86850; 86900; 86901; 86920; 87040; 87070; 87077; 87086; 87088; 87205; 87340; 87426; 87493; 90935; 93005; 93306; 94002; 94003; 94640; 94660; 96365; 96367; 97163; 97530; A4223; C1729; G0378; J0171; J0330; J0696; J1100; J1450; J1642; J1815; J2001; J2185; J2250; J2543; J2704; J3480; J3490; J7060; J7131; P9047